=== PATIENT | female | born 1965 | race Caucasian/White ===

== ENCOUNTER 2016-05-16 09:24 | Outpatient (RCR) | payer BC ==
[~2016-05-16 09:24] MED LIST: /CLOT10TR MT; /DULO30CA OR; /ONDA4TA OR; /SUCR1TA OR; ALLE25CA OR; ATIV0.5T OR; CALCCHW12 OR; COLA100C2 OR; CYAN1000VL IM; CYCL10TA PO; DICY20TA PO; DULCOLAX OR; DULO1CAP3 PO; FERR325T PO; FISH1000 OR; FLUC10TA OR; FOLI1TAB2 PO; GAS-80CH OR; HYDR-3713 PO; IBUP400T OR; METRONIDAZOLE TOP; MIRALEX OR; MORP20SO OR; MORP30TA4 OR; MORP60TA OR; MULTIVIT OR; OMEP20TA7 OR; OXYB10TA PO; PERC5TAB8 OR; PERC7.5T8 OR; PHEN 25 PO; PHEN1SUP6 PR; POLYOPD OU; PRED10TA2 OR; PRED20TA OR; PRED50TA OR; PRED5TAB OR; PREMARIN PV; PROTPAK PO; Pentasa; REMICADE; ROPI1TAB PO; SENO8.6T5 OR; SIME125C OR; SING10TA32 PO; SUCR1SS PO; SULF500T2 PO; VIT D 2000; VITA100066 PO; VITA500C OR; VITAMIN B12 IM; VITMTA PO; ZOFR4TAB3 PO; ZOFR8TAB OR; [UNRECOGNIZED DRUG - CODE] IV; [UNRECOGNIZED DRUG - CODE] TD; [UNRECOGNIZED DRUG - OTHER] OR; [UNRECOGNIZED DRUG - OTHER] PO; azathioprine PO; cyanocobalamin INJ; hyomax SL; levsin PO; pentasa PO
== END 2016-05-23 ==
LOC: M OT 09:24
PROVIDERS: ATTEND Orthopaedic Surgery
DX: Z51.89 Encounter for other specified aftercare (principal); M65.331 Trigger finger, right middle finger; M70.62 Trochanteric bursitis, left hip

== ENCOUNTER 2016-06-15 08:45 | Outpatient (RCR) | payer BC | END 2016-06-23 | LOC: M OT 08:45 | PROVIDERS: ATTEND Orthopaedic Surgery | DX: Z51.89 Encounter for other specified aftercare (principal); M65.331 Trigger finger, right middle finger ==

== ENCOUNTER → 2016-07-11 | Outpatient (CLI) | payer BC ==
[2016-07-11 19:48] LABS: ALBUMIN 3.5 GM/DL (3.2-5.2); CALCIUM LEVEL 8.7 MG/DL (8.5-10.1)
== END ==
LOC: M LAB 18:44
PROVIDERS: ATTEND Internal Medicine Rheumatology
DX: Z79.899 Other long term (current) drug therapy (principal)

== ENCOUNTER 2016-09-06 14:48 | Emergency (ER) | payer BC ==
[~2016-09-06] VITALS: Ht 160 cm; Wt 79.2 kg
[2016-09-06] MEDS ORDERED: NS 1,000 ML IV SCH (16:16)
[2016-09-06] MEDS ORDERED: PANTOPRAZOLE 40MG INJ (PROTONIX) (C9113) IV ONE (16:30)
[2016-09-06] MEDS ORDERED: ONDANSETRON 4MG/2ML VIAL (J2405) IV ONE ×2 (16:30→19:45)
[2016-09-06] MEDS ORDERED: GASTROGRAFIN SOLUTION 30ML (Q9963) PO ONE ×2 (16:45)
[2016-09-06] MEDS: MORPHINE 4 MG/ML 1ML SYRINGE IV PRN ×2 (16:48→19:10)
[2016-09-06 16:58] LABS: BASO # 0.1 K/mm3 (0.0-0.2); BASO % 0.8 % (0.0-1.0); EOS # 0.2 K/mm3 (0.0-0.50); EOS % 2.9 % (0.0-3.0); LARGE UNSTAINED CELL # 0.2 K/mm3 (0.0-0.4); LARGE UNSTAINED CELL % 2.6 % (0.0-4.0); LYMPH # 1.5 K/mm3 (1.5-4.5); LYMPH % 17.6 % (24.0-44.0); MEAN CORPUSCULAR HEMOGLOBIN 29.2 pg (27.0-33.0); MEAN CORPUSCULAR HGB CONC 33.3 g/dl (32.0-36.5); MEAN CORPUSCULAR VOLUME 87.6 fl (80.0-96.0); MONO # 0.5 K/mm3 (0.0-0.8); MONO % 7.2 % (0.0-5.0); NEUTROPHILS % 68.9 % (36.0-66.0); PLATELET COUNT, AUTOMATED 319 k/mm3 (150-450); RED CELL DISTRIBUTION WIDTH 14.2 % (11.5-14.5); WHITE BLOOD COUNT 7.2 K/mm3 (4.0-10.0)
[2016-09-06 17:20] LABS: ALBUMIN 3.4 GM/DL (3.2-5.2); ALBUMIN/GLOBULIN RATIO 0.79 (1.00-1.93); ALKALINE PHOSPHATASE 94 U/L (45-117); ALT/SGPT 98 U/L (12-78); AMYLASE 51 U/L (25-115); ANION GAP 7 MEQ/L (8-16); AST/SGOT 22 U/L (15-37); BILIRUBIN,DIRECT < 0.1 MG/DL (0.0-0.2); BILIRUBIN,TOTAL 0.4 MG/DL (0.2-1.0); BLOOD UREA NITROGEN 7 MG/DL (7-18); CALCIUM LEVEL 8.5 MG/DL (8.5-10.1); CARBON DIOXIDE LEVEL 25 MEQ/L (21-32); CHLORIDE LEVEL 106 MEQ/L (98-107); CREATININE FOR GFR 0.69 MG/DL (0.55-1.02); GLOMERULAR FILTRATION RATE > 60.0 (>51); GLUCOSE, FASTING 97 MG/DL (70-105); POTASSIUM SERUM 3.1 MEQ/L (3.5-5.1); SODIUM LEVEL 138 MEQ/L (136-145); TOTAL PROTEIN 7.7 GM/DL (6.4-8.2)
[2016-09-06] MEDS ORDERED: ISOVUE-370 76% 100ML VIAL (Q9967) As Ordered ONE (18:05)
--- NOTE | 2016-09-06 19:30 | REPUSA ---
CLINICAL HISTORY: Recent hernia repair and fundoplication with pain. Patient states right-sided pain . TECHNIQUE: Multiple axial CT images were obtained through the abdomen and pelvis after administratio n of oral and intravenous contrast material. FINDINGS: There are postsurgical changes present in the anterior and right lateral abdominal wall compatible wi th recent surgery. A 15 mm cyst present in the left hepatic lobe. There are several additional smaller hepatic cysts. Th e liver is otherwise unremarkable. There is no intra or extrahepatic biliary ductal dilatation. Th e spleen is normal. Status post cholecystectomy. The pancreas is of normal contour and attenuation ch aracteristics. There is no evidence of adrenal mass. Both kidneys demonstrate prompt and equal nephrograms. The kidneys are normal in size, shape and con figuration. There is no evidence of renal or ureteral mass. No renal or ureteral calculi are identi fied. There is no hydroureter or hydronephrosis. No evidence for appendicitis. There is evidence of circumferential wall thickening involving the righ t colon as well as transverse colon compatible with colitis. No evidence for small or large bowel o bstruction. There is mild pelvic ascites noted. There is no evidence of intrinsic or extrinsic bladder mass. There is no pelvic ascites or lymphaden opathy. Uterus and ovaries are unremarkable. Scarring is seen in the right lower lobe lingula. There is small left pleural effusion noted. Images of the lung bases show no evidence of pleural or parenchymal mass. The bony structures are free of l ytic or blastic lesions. There is a moderate-sized hiatal hernia present. There is thickening of the distal esophagus and GE j unction wall. Consider followup with upper endoscopy. IMPRESSION: 1. Evidence of right colitis. Likely of infectious etiology. Clinical correlation is recommended. 2. Postsurgical changes. Air in the abdominal wall likely related to recent surgery. 3. There is thickening of the distal esophagus and GE junction wall. Consider followup with upper end oscopy. 4. Small amount of fluid within the pelvis. Thank you for your kind referral of this patient. We appreciate the opportunity to participate in thi s patient's care.
[2016-09-06] MEDS ORDERED: PERCOCET 5MG/325MG TAB PO ONE ×2 (20:30→22:15)
[2016-09-06] MEDS ORDERED: PERC5TAB6 PO (22:01)
[2016-09-06 22:05] VITALS: BP 110/65
--- NOTE | 2016-09-07 08:47 | ED PDOC ---
Post-Departure Follow-Up radiology report faxed to Easton Dunham Sarah MD Sep 07, 2016 08:47
== END 2016-09-06 22:30 | disposition home or self-care (01) ==
LOC: M ED 15:50
DX: G89.18 Other acute postprocedural pain (principal); K52.9 Noninfective gastroenteritis and colitis, unspecified; K76.89 Other specified diseases of liver; K90.0 Celiac disease; K50.90 Crohn's disease, unspecified, without complications; J45.909 Unspecified asthma, uncomplicated; Z79.899 Other long term (current) drug therapy; Z88.0 Allergy status to penicillin; Z88.1 Allergy status to other antibiotic agents; Z88.5 Allergy status to narcotic agent; Z91.011 Allergy to milk products; Z91.018 Allergy to other foods
CPT/HCPCS: 74177; 80048; 80076; 82150; 83690; 85025; 96361; 96374; 96375; 96376; 99282; C9113; J2405; Q9963; Q9967

== ENCOUNTER 2016-09-09 14:54 | Emergency (ER) | payer BC ==
[~2016-09-09] VITALS: Ht 160 cm; Wt 79.5 kg
[2016-09-09 14:54] VITALS: BP 121/79
[~2016-09-09 14:54] MED LIST changes: +PERC5TAB6 PO
[2016-09-09] MEDS ORDERED: traMADol 50 MG TAB PO ONE (16:15)
[2016-09-09] MEDS ORDERED: traMADol 50 MG TAB As Ordered ONE (16:18)
[2016-09-09] MEDS ORDERED: ULTR50TA PO (16:19)
== END 2016-09-09 16:31 | disposition home or self-care (01) ==
LOC: M ED 15:47
DX: R22.0 Localized swelling, mass and lump, head (principal); T78.40XA Allergy, unspecified, initial encounter; G89.18 Other acute postprocedural pain; J45.909 Unspecified asthma, uncomplicated; G47.30 Sleep apnea, unspecified; K50.90 Crohn's disease, unspecified, without complications; K90.0 Celiac disease; F33.9 Major depressive disorder, recurrent, unspecified; Z79.899 Other long term (current) drug therapy; Z88.0 Allergy status to penicillin; Z88.1 Allergy status to other antibiotic agents; Z88.5 Allergy status to narcotic agent; Z91.011 Allergy to milk products; Z91.018 Allergy to other foods

== ENCOUNTER 2016-09-27 03:59 | Emergency (ER) | payer BC ==
[~2016-09-27 03:59] MED LIST changes: +COMB1DIS TD; +FERR1TAB8 PO; -FERR325T PO; -FOLI1TAB2 PO; +FOLI1TAB4 PO; +PERC5TAB12 PO; -PERC5TAB6 PO; +ULTR50TA8 PO; -[UNRECOGNIZED DRUG - CODE] TD
[2016-09-27] MEDS ORDERED: NS 1,000 ML IV ONE (04:30)
[2016-09-27] MEDS ORDERED: ACETAMINOPHEN TAB 650MG DOSE (2X325MG) As Ordered ONE (04:32)
[2016-09-27] MEDS ORDERED: ACETAMINOPHEN TAB 650MG DOSE (2X325MG) PO ONE (04:45)
[2016-09-27 04:47] LABS: BASO # 0.1 K/mm3 (0.0-0.2); BASO % 0.7 % (0.0-1.0); EOS # 0.2 K/mm3 (0.0-0.50); EOS % 1.5 % (0.0-3.0); LARGE UNSTAINED CELL # 0.1 K/mm3 (0.0-0.4); LARGE UNSTAINED CELL % 0.9 % (0.0-4.0); LYMPH # 0.8 K/mm3 (1.5-4.5); LYMPH % 6.9 % (24.0-44.0); MEAN CORPUSCULAR HEMOGLOBIN 29.8 pg (27.0-33.0); MEAN CORPUSCULAR VOLUME 87.5 fl (80.0-96.0); MONO # 1.1 K/mm3 (0.0-0.8); MONO % 9.8 % (0.0-5.0); NEUTROPHILS # 9.1 K/mm3 (1.8-7.7); NEUTROPHILS % 80.2 % (36.0-66.0); PLATELET COUNT, AUTOMATED 261 k/mm3 (150-450); RED CELL DISTRIBUTION WIDTH 14.2 % (11.5-14.5); WHITE BLOOD COUNT 11.3 K/mm3 (4.0-10.0)
[2016-09-27] MEDS ORDERED: ONDANSETRON 4MG/2ML VIAL (J2405) As Ordered ONE (04:55)
[2016-09-27] MEDS ORDERED: HYDROmorphone HCL 1 MG/ML SYRINGE (J1170) As Ordered ONE (04:55)
[2016-09-27] MEDS ORDERED: ONDANSETRON 4MG/2ML VIAL (J2405) IV ONE (05:00)
[2016-09-27] MEDS ORDERED: IMIPENEM/CILASTATIN 500 MG in D5W MINI-BAG PLUS 100 ML IV ONE (05:00)
[2016-09-27] MEDS ORDERED: HYDROmorphone HCL 1 MG/ML SYRINGE (J1170) IV PRN (05:00)
[2016-09-27 05:10] LABS: ALBUMIN 3.5 GM/DL (3.2-5.2); ALBUMIN/GLOBULIN RATIO 0.85 (1.00-1.93); ALKALINE PHOSPHATASE 68 U/L (45-117); ALT/SGPT 43 U/L (12-78); ANION GAP 11 MEQ/L (8-16); AST/SGOT 30 U/L (15-37); BILIRUBIN,DIRECT < 0.1 MG/DL (0.0-0.2); BILIRUBIN,TOTAL 0.3 MG/DL (0.2-1.0); BLOOD UREA NITROGEN 21 MG/DL (7-18); CALCIUM LEVEL 9.2 MG/DL (8.5-10.1); CARBON DIOXIDE LEVEL 21 MEQ/L (21-32); CHLORIDE LEVEL 106 MEQ/L (98-107); CREATININE FOR GFR 0.93 MG/DL (0.55-1.02); GLOMERULAR FILTRATION RATE > 60.0 (>51); GLUCOSE, FASTING 199 MG/DL (70-105); POTASSIUM SERUM 4.2 MEQ/L (3.5-5.1); SODIUM LEVEL 138 MEQ/L (136-145); TOTAL PROTEIN 7.6 GM/DL (6.4-8.2)
[2016-09-27] MEDS ORDERED: ISOVUE-370 76% 100ML VIAL (Q9967) As Ordered ONE (05:33)
[2016-09-27 05:47] LABS: VENOUS BASE EXCESS -3.1 (-2.0-2.0); VENOUS O2 SATURATION 96.3 % (60.0-80.0); VENOUS PARTIAL PRESSURE CO2 33.3 mmHg (38.0-50.0); VENOUS PARTIAL PRESSURE O2 82.6 mmHg (30.0-50.0); VENOUS STANDARD HCO3 21.8 MEQ/L; VENOUS TOTAL CO2 21.7 MEQ/L (24.0-28.0)
--- NOTE | 2016-09-27 06:50 | REPUSA ---
CLINICAL HISTORY: Abdominal pain. TECHNIQUE: Multiple axial, sagittal and coronal CT images were obtained through the abdomen and pelvi s after administration of oral and intravenous contrast material. COMMENTS: Comparison is made to prior exam performed on 09/06/2016. Resolution of the patient described right sided colitis. Interval appearance of diffuse thickening of the mid aspect of the sigmoid colon. Resolution of surgical pneumoperitoneum. Unchanged 1.5 cm cyst in the left hepatic lobe. Unchanged pneumobilia. Prior cholecystectomy. Decreased inflammatory soft tissue thickening surrounding the fundoplication surgery. Unchanged hepatomegaly with fatty infiltration. Unchanged mild extrahepatic biliary ductal dilatation. The spleen is normal. The pancreas is of normal contour and attenuation characteristics. There is no evidence of adrenal ma ss. Both kidneys demonstrate prompt and equal nephrograms. The kidneys are normal in size, shape and conf iguration. There is no evidence of renal or ureteral mass. No renal or ureteral calculi are identifie d. There is no hydroureter or hydronephrosis. No evidence for small or large bowel obstruction. There is no evidence of abdominal ascites or lympha denopathy. There is no evidence of intrinsic or extrinsic bladder mass. There is no pelvic ascites or lymphadeno kristen. Images of the lung bases show no evidence of pleural or parenchymal mass. There are no pleural effusi ons. The bony structures are free of lytic or blastic lesions. IMPRESSION: Interval appearance of mid sigmoid colitis. No perforation or abscess formation. Resolution of surgical pneumoperitoneum. Resolution of right sided ascending colitis. Thank you for your kind referral of this patient.
--- NOTE | 2016-09-27 06:50 | REPUSA ---
CLINICAL HISTORY: Recent esophageal surgery. TECHNIQUE: Multiple axial CT images were obtained through the thorax with IV contrast material. COMMENTS: No pulmonary embolus or aortic dissection is seen. There is no evidence of pleural or parenchymal mass. There are no pleural effusions. There is no evid ence of hilar or mediastinal lymphadenopathy. The heart and great vessels are within normal limits. Again is noted scarring in the lingula and the right lower lobe. The bony structures are free of lytic or blastic lesions. Post contrast images demonstrate no evidence for abnormal enhancement. Changes from the recent fundoplication. IMPRESSION: No evidence of acute thoracic pathology. Recent fundoplication. Thank you for your kind referral of this patient.
[2016-09-27 09:02] VITALS: BP 95/62
== END 2016-09-27 09:32 | disposition short-term general hospital (02) ==
LOC: EEVIPCON 03:59 → M ED 03:59
DX: K52.9 Noninfective gastroenteritis and colitis, unspecified (principal); K50.90 Crohn's disease, unspecified, without complications; Z79.899 Other long term (current) drug therapy; Z88.0 Allergy status to penicillin; Z88.1 Allergy status to other antibiotic agents; Z88.5 Allergy status to narcotic agent; Z91.011 Allergy to milk products; Z91.018 Allergy to other foods
CPT/HCPCS: 36415; 71260; 74177; 80048; 80076; 82803; 83605; 83690; 85025; 87040; 87077; 87186; 93041; 96365; 96375; 99285; J1170; J2405; Q9967

== ENCOUNTER → 2016-10-10 | Outpatient (REF) | payer BC ==
[~2016-10-10] MED LIST changes: +ARTI99.0 OU; +BREO1INH3 INH; +CIPR-249 PO; +CIPR500T3 PO; +COUM1TAB19 PO; +FAMO1TAB11 PO; +FLAG500T PO; +INCR1INH INH; +LEVS0.124 SL; +LOVE0.6I2 SC; +METR1TAB66 PO; +POTA20TA PO; +POTA20TA4 PO; +PRED10TA2 PO; +PRED5TA PO; +ROPI0.5T PO; +VANC1VLAD INJ; +ZOFR20TA PO
[2016-10-10 18:57] LABS: ALBUMIN 3.4 GM/DL (3.2-5.2); ALKALINE PHOSPHATASE 50 U/L (45-117); ALT/SGPT 36 U/L (12-78); ANION GAP 10 MEQ/L (8-16); AST/SGOT 14 U/L (15-37); BILIRUBIN,TOTAL 0.3 MG/DL (0.2-1.0); BLOOD UREA NITROGEN 9 MG/DL (7-18); CALCIUM LEVEL 8.5 MG/DL (8.5-10.1); CARBON DIOXIDE LEVEL 25 MEQ/L (21-32); CHLORIDE LEVEL 107 MEQ/L (98-107); GLOMERULAR FILTRATION RATE > 60.0 (>51); GLUCOSE, FASTING 78 MG/DL (70-105); POTASSIUM SERUM 4.5 MEQ/L (3.5-5.1); SODIUM LEVEL 142 MEQ/L (136-145); TOTAL PROTEIN 6.8 GM/DL (6.4-8.2)
[2016-10-10 19:02] LABS: BASO % 0.2 % (0.0-1.0); EOS # 0.2 K/mm3 (0.0-0.50); EOS % 2.5 % (0.0-3.0); LARGE UNSTAINED CELL # 0.1 K/mm3 (0.0-0.4); LARGE UNSTAINED CELL % 1.1 % (0.0-4.0); LYMPH # 1.4 K/mm3 (1.5-4.5); LYMPH % 21.2 % (24.0-44.0); MEAN CORPUSCULAR HEMOGLOBIN 28.7 pg (27.0-33.0); MEAN CORPUSCULAR HGB CONC 32.4 g/dl (32.0-36.5); MEAN CORPUSCULAR VOLUME 88.5 fl (80.0-96.0); MONO # 0.4 K/mm3 (0.0-0.8); MONO % 6.4 % (0.0-5.0); NEUTROPHILS # 4.3 K/mm3 (1.8-7.7); NEUTROPHILS % 68.5 % (36.0-66.0); PLATELET COUNT, AUTOMATED 323 k/mm3 (150-450); RED CELL DISTRIBUTION WIDTH 14.8 % (11.5-14.5); WHITE BLOOD COUNT 6.2 K/mm3 (4.0-10.0)
[2016-10-10 20:01] LABS: ERYTHROCYTE SEDIMENTATION RATE 25 mm/hr (0-30)
== END ==
LOC: M LAB REF 17:24
PROVIDERS: ATTEND Nurse Practitioner Adult Health
DX: R78.81 Bacteremia (principal)

== ENCOUNTER → 2016-10-17 | Outpatient (REF) | payer BC ==
[2016-10-17 13:11] LABS: INR 1.07
== END ==
LOC: M LAB REF 12:32
PROVIDERS: ATTEND Family Medicine
DX: I82.622 Acute embolism and thrombosis of deep veins of left upper extremity (principal)

== ENCOUNTER → 2016-10-17 | Outpatient (REF) | payer BC ==
[2016-10-17 13:03] LABS: ALKALINE PHOSPHATASE 59 U/L (45-117); ALT/SGPT 28 U/L (12-78); BILIRUBIN,TOTAL 0.3 MG/DL (0.2-1.0); BLOOD UREA NITROGEN 10 MG/DL (7-18); CALCIUM LEVEL 8.8 MG/DL (8.5-10.1); CARBON DIOXIDE LEVEL 27 MEQ/L (21-32); CHLORIDE LEVEL 108 MEQ/L (98-107); CREATININE FOR GFR 0.74 MG/DL (0.55-1.02); GLUCOSE, FASTING 107 MG/DL (70-105); POTASSIUM SERUM 3.4 MEQ/L (3.5-5.1); TOTAL PROTEIN 6.8 GM/DL (6.4-8.2)
[2016-10-17 13:07] LABS: BASO % 0.2 % (0.0-1.0); EOS # 0.2 K/mm3 (0.0-0.50); LARGE UNSTAINED CELL # 0.1 K/mm3 (0.0-0.4); LARGE UNSTAINED CELL % 2.2 % (0.0-4.0); LYMPH # 1.2 K/mm3 (1.5-4.5); LYMPH % 29.8 % (24.0-44.0); MEAN CORPUSCULAR HEMOGLOBIN 29.3 pg (27.0-33.0); MEAN CORPUSCULAR HGB CONC 33.2 g/dl (32.0-36.5); MEAN CORPUSCULAR VOLUME 88.4 fl (80.0-96.0); MONO # 0.4 K/mm3 (0.0-0.8); MONO % 11.6 % (0.0-5.0); NEUTROPHILS # 1.9 K/mm3 (1.8-7.7); NEUTROPHILS % 50.3 % (36.0-66.0); PLATELET COUNT, AUTOMATED 247 k/mm3 (150-450); WHITE BLOOD COUNT 3.8 K/mm3 (4.0-10.0)
[2016-10-17 13:16] LABS: AST/SGOT 16 U/L (15-37)
[2016-10-17 13:48] LABS: ERYTHROCYTE SEDIMENTATION RATE 37 mm/hr (0-30)
[2016-10-17 15:47] LABS: ANION GAP 8 MEQ/L (8-16); SODIUM LEVEL 143 MEQ/L (136-145)
[2016-10-17 15:48] LABS: ALBUMIN 3.3 GM/DL (3.2-5.2); ALBUMIN/GLOBULIN RATIO 0.94 (1.00-1.93)
== END ==
LOC: M LAB REF 12:33
PROVIDERS: ATTEND Internal Medicine Infectious Disease
DX: R78.81 Bacteremia (principal); I80.9 Phlebitis and thrombophlebitis of unspecified site; Z79.2 Long term (current) use of antibiotics

== ENCOUNTER 2016-10-19 09:35 | Emergency (ER) | payer BC ==
[~2016-10-19] VITALS: Ht 162.6 cm; Wt 71.8 kg
[~2016-10-19 09:35] MED LIST changes: -ARTI99.0 OU; -BREO1INH3 INH; -CIPR-249 PO; -CIPR500T3 PO; -COUM1TAB19 PO; -FAMO1TAB11 PO; -FLAG500T PO; -INCR1INH INH; -LEVS0.124 SL; -LOVE0.6I2 SC; -METR1TAB66 PO; -POTA20TA PO; -POTA20TA4 PO; -PRED10TA2 PO; -PRED5TA PO; -ROPI0.5T PO; -VANC1VLAD INJ; -ZOFR20TA PO
[2016-10-19] MEDS ORDERED: LEVS0.124 SL (09:57)
[2016-10-19] MEDS ORDERED: COUM1TAB19 PO (09:57)
[2016-10-19] MEDS ORDERED: INCR1INH INH (09:57)
[2016-10-19] MEDS ORDERED: VANC1VLAD INJ (09:57)
[2016-10-19] MEDS ORDERED: PRED10TA2 PO (09:57)
[2016-10-19] MEDS ORDERED: LOVE0.6I2 SC (09:57)
[2016-10-19] MEDS ORDERED: MORPHINE 4 MG/ML 1ML SYRINGE IV ONE ×2 (10:30→12:00)
[2016-10-19] MEDS ORDERED: ONDANSETRON 4MG/2ML VIAL (J2405) IV ONE (10:30)
[2016-10-19] MEDS ORDERED: VANCOMYCIN HCL 1,000 MG, VIAL MATE ADAPTER 1 EACH in D5W 250 ML IV ONE (10:30)
[2016-10-19] MEDS ORDERED: VANCOMYCIN HCL 500 MG in D5W MINI-BAG PLUS 100 ML IV ONE (10:30)
[2016-10-19] MEDS ORDERED: GASTROGRAFIN SOLUTION 30ML PO ONE (10:45)
[2016-10-19] MEDS ORDERED: GASTROGRAFIN SOLUTION 30ML (Q9963) PO ONE (11:00)
[2016-10-19] MEDS ORDERED: GASTROGRAFIN SOLUTION 30ML (Q9963) As Ordered ONE (11:15)
[2016-10-19 11:27] LABS: INR 1.23
--- NOTE | 2016-10-19 11:28 | ECGEPIP ---
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
[2016-10-19 11:37] LABS: BASO % 0.9 % (0.0-1.0); EOS # 0.3 K/mm3 (0.0-0.50); EOS % 4.8 % (0.0-3.0); LARGE UNSTAINED CELL # 0.2 K/mm3 (0.0-0.4); LARGE UNSTAINED CELL % 2.7 % (0.0-4.0); LYMPH % 17.7 % (24.0-44.0); MEAN CORPUSCULAR HEMOGLOBIN 28.7 pg (27.0-33.0); MEAN CORPUSCULAR HGB CONC 33.5 g/dl (32.0-36.5); MEAN CORPUSCULAR VOLUME 85.6 fl (80.0-96.0); MONO # 0.4 K/mm3 (0.0-0.8); MONO % 6.8 % (0.0-5.0); NEUTROPHILS # 3.8 K/mm3 (1.8-7.7); NEUTROPHILS % 67.1 % (36.0-66.0); PLATELET COUNT, AUTOMATED 219 k/mm3 (150-450); RED CELL DISTRIBUTION WIDTH 14.8 % (11.5-14.5); WHITE BLOOD COUNT 5.6 K/mm3 (4.0-10.0)
[2016-10-19] MEDS ORDERED: ISOVUE-370 76% 100ML VIAL (Q9967) As Ordered ONE (12:27)
[2016-10-19] MEDS ORDERED: METOCLOPRAMIDE INJ 10MG/2ML VIAL (J2765) IV ONE (13:15)
[2016-10-19] MEDS ORDERED: HYDROmorphone HCL 1 MG/ML SYRINGE (J1170) IV PRN (13:15)
--- NOTE | 2016-10-19 13:20 | REP ---
CT abdomen pelvis with IV and oral contrast: Comparison 09/27/2016. The visualized lung stewart are unremarkable. There is focal soft tissue edema and wall thickening at the gastroesophageal junction, similar to the comparison CT in this patient who is reportedly recently had a fundoplication procedure. No focal fluid collection that would suggest abscess is identified. There is a focal low density lesion superiorly in the medial segment of the hepatic left lobe, unchanged from a prior study of 2012, likely an hepatic cyst. The hepatic parenchyma is otherwise homogeneous and unremarkable. There are surgical clips in the gallbladder fossa. Pancreas and spleen are unremarkable. The adrenals and kidneys are unremarkable. The abdominal aorta is unremarkable. There is no bowel distension or obstruction. There is descending colon and sigmoid colon diverticulosis without diverticulitis. There is mild wall thickening of the descending colon and sigmoid colon. This is nonspecific and could be artifact from under distension, however, in the appropriate clinical setting this could represent colitis. There is no ascites. There is no retroperitoneal or pelvic adenopathy. Pelvis: The bladder is unremarkable. There is a focal sharply circumscribed hypodensity in the uterine fundus on the left, possibly a fibroid. The uterus is otherwise unremarkable. The adnexa are unremarkable. The appendix is not identified, however there is no pericecal inflammation or abscess. Impression: Wall thickening and edema in the soft tissues at the gastroesophageal junction, similar to the comparison study this patient with history of recent fundoplication. No focal fluid collection is identified to suggest abscess. Descending colon and sigmoid colon diverticulosis without diverticulitis. There is additionally descending colon and sigmoid colon wall thickening compatible with colitis in the appropriate clinical setting. No ascites or adenopathy. There is a cholecystectomy. No bowel distension or obstruction. Probable uterine fibroid. Signed by Heriberto Omalley MD 10/19/2016 01:11 P
[2016-10-19 13:27] LABS: BLOOD UREA NITROGEN 12 MG/DL (7-18); GLUCOSE, FASTING 94 MG/DL (70-105)
[2016-10-19 13:28] LABS: ALT/SGPT 31 U/L (12-78); ANION GAP 8 MEQ/L (8-16); AST/SGOT 15 U/L (15-37); CALCIUM LEVEL 8.8 MG/DL (8.5-10.1); CARBON DIOXIDE LEVEL 25 MEQ/L (21-32); CHLORIDE LEVEL 110 MEQ/L (98-107); GLOMERULAR FILTRATION RATE > 60.0 (>51); SODIUM LEVEL 143 MEQ/L (136-145)
[2016-10-19 13:29] LABS: ALBUMIN 3.4 GM/DL (3.2-5.2); ALBUMIN/GLOBULIN RATIO 0.76 (1.00-1.93); ALKALINE PHOSPHATASE 69 U/L (45-117); BILIRUBIN,DIRECT 0.1 MG/DL (0.0-0.2); BILIRUBIN,TOTAL 0.5 MG/DL (0.2-1.0); TOTAL PROTEIN 7.9 GM/DL (6.4-8.2)
[2016-10-19] MEDS ORDERED: CIPR-249 PO (15:09)
[2016-10-19] MEDS ORDERED: POTA20TA4 PO (15:09)
[2016-10-19] MEDS ORDERED: FLAG500T PO (15:09)
[2016-10-19] MEDS ORDERED: POTASSIUM CHLORIDE 10 MEQ SR TABLET PO ONE (15:15)
[2016-10-19 15:39] VITALS: BP 118/62
[2016-10-20] MEDS ORDERED: ARTI99.0 OU (19:03)
[2016-10-20] MEDS ORDERED: POTA20TA PO (19:03)
[2016-10-20] MEDS ORDERED: METR1TAB66 PO (19:03)
[2016-10-20] MEDS ORDERED: HYDR-3713 PO (19:03)
[2016-10-20] MEDS ORDERED: ROPI0.5T PO (19:03)
[2016-10-20] MEDS ORDERED: ZOFR20TA PO (19:03)
[2016-10-20] MEDS ORDERED: FAMO1TAB11 PO (19:03)
[2016-10-20] MEDS ORDERED: CIPR500T3 PO (19:03)
[2016-10-20] MEDS ORDERED: PRED5TA PO (19:03)
[2016-10-20] MEDS ORDERED: BREO1INH3 INH (19:03)
== END 2016-10-19 15:42 | disposition home or self-care (01) ==
LOC: M ED 09:35
DX: K52.9 Noninfective gastroenteritis and colitis, unspecified (principal); E87.6 Hypokalemia
CPT/HCPCS: 36415; 74177; 80048; 80076; 82550; 82553; 83605; 83690; 85025; 85610; 86850; 86900; 86901; 87040; 87507; 93005; 93041; 96365; 96366; 96375; 96376; 99284; J1170; J2405; J2765; J3370; Q9963; Q9967

== ENCOUNTER 2016-10-20 16:30 | Observation (INO) | payer BC ==
[~2016-10-20] VITALS: Ht 162.6 cm; Wt 71.9 kg
[~2016-10-20 16:30] MED LIST changes: -ARTI99.0 OU; -BREO1INH3 INH; -CIPR500T3 PO; -FAMO1TAB11 PO; -METR1TAB66 PO; -POTA20TA PO; -PRED5TA PO; -ROPI0.5T PO; -ZOFR20TA PO
[2016-10-20] MEDS ORDERED: ONDANSETRON 4MG/2ML VIAL (J2405) IV ONE (16:45)
[2016-10-20] MEDS ORDERED: NS 1,000 ML IV SCH ×2 (16:45→20:00)
[2016-10-20] MEDS: MORPHINE 4 MG/ML 1ML SYRINGE IV PRN ×2 (17:00→17:29)
[2016-10-20 17:14] LABS: BASO % 0.2 % (0.0-1.0); EOS # 0.2 K/mm3 (0.0-0.50); EOS % 4.8 % (0.0-3.0); LARGE UNSTAINED CELL # 0.1 K/mm3 (0.0-0.4); LARGE UNSTAINED CELL % 2.2 % (0.0-4.0); LYMPH # 0.7 K/mm3 (1.5-4.5); LYMPH % 15.3 % (24.0-44.0); MEAN CORPUSCULAR HEMOGLOBIN 29.4 pg (27.0-33.0); MEAN CORPUSCULAR HGB CONC 33.9 g/dl (32.0-36.5); MEAN CORPUSCULAR VOLUME 86.6 fl (80.0-96.0); MONO # 0.4 K/mm3 (0.0-0.8); MONO % 9.2 % (0.0-5.0); NEUTROPHILS # 3.1 K/mm3 (1.8-7.7); NEUTROPHILS % 68.3 % (36.0-66.0); PLATELET COUNT, AUTOMATED 173 k/mm3 (150-450); RED CELL DISTRIBUTION WIDTH 14.7 % (11.5-14.5); WHITE BLOOD COUNT 4.5 K/mm3 (4.0-10.0)
[2016-10-20 17:41] LABS: ALBUMIN 3.3 GM/DL (3.2-5.2); ALBUMIN/GLOBULIN RATIO 0.85 (1.00-1.93); ALKALINE PHOSPHATASE 61 U/L (45-117); ALT/SGPT 33 U/L (12-78); ANION GAP 10 MEQ/L (8-16); AST/SGOT 21 U/L (15-37); BILIRUBIN,DIRECT < 0.1 MG/DL (0.0-0.2); BILIRUBIN,TOTAL 0.3 MG/DL (0.2-1.0); BLOOD UREA NITROGEN 9 MG/DL (7-18); CALCIUM LEVEL 8.5 MG/DL (8.5-10.1); CARBON DIOXIDE LEVEL 22 MEQ/L (21-32); CHLORIDE LEVEL 109 MEQ/L (98-107); GLOMERULAR FILTRATION RATE > 60.0 (>51); GLUCOSE, FASTING 101 MG/DL (70-105); POTASSIUM SERUM 3.4 MEQ/L (3.5-5.1); SODIUM LEVEL 141 MEQ/L (136-145); TOTAL PROTEIN 7.2 GM/DL (6.4-8.2)
[2016-10-20] MEDS ORDERED: FAMO1TAB11 PO (19:03)
[2016-10-20] MEDS ORDERED: HYDR-3713 PO (19:03)
[2016-10-20] MEDS ORDERED: ARTI99.0 OU (19:03)
[2016-10-20] MEDS ORDERED: METR1TAB66 PO (19:03)
[2016-10-20] MEDS ORDERED: PRED5TA PO (19:03)
[2016-10-20] MEDS ORDERED: POTA20TA PO (19:03)
[2016-10-20] MEDS ORDERED: CIPR500T3 PO (19:03)
[2016-10-20] MEDS ORDERED: ZOFR20TA PO (19:03)
[2016-10-20] MEDS ORDERED: BREO1INH3 INH (19:03)
[2016-10-20] MEDS ORDERED: ROPI0.5T PO (19:03)
[2016-10-20] MEDS ORDERED: POTASSIUM CHLORIDE 10 MEQ SR TABLET PO ONE (19:15)
[2016-10-20] MEDS ORDERED: rOPINIRole 1MG TAB PO PRN (19:15)
[2016-10-20] MEDS ORDERED: HYOSCYAMINE SULFATE 0.125 MG SUBL TABLET SL PRN (19:15)
[2016-10-20] MEDS ORDERED: POLYVINYL ALCOHOL OPHTH SOLN 15 ML(LIQUITEARS) OU PRN (19:15)
--- NOTE | 2016-10-20 19:21 | HPEPDOC ---
Medical History and Physical Date of Admission Oct 20, 2016 at 19:07 History and Physical PRIMARY CARE PROVIDER: Easton Dunham ATTENDING: Nancy Jesus MD CHIEF COMPLAINT: Abdominal pain HISTORY OF PRESENT ILLNESS: This is a 50-year-old female past medical history of Crohn's disease, celiac disease, asthma, rheumatoid arthritis, GERD, history of esophageal stricture status post dilation, pancreatitis, hiatal hernia status post recent fundoplication in August who presents complaining of abdominal pain. Patient states she was recently hospitalized for her fundoplication, had a PICC line placed, with complications of a left upper extremity DVT for which she is on a Lovenox/Coumadin bridge. The patient also had developed bacteremia, for which she is on vancomycin IV twice a day through a PICC line on the right upper extremity. Patient states she is supposed to continue these antibiotics until she follows up on October 31. Patient states since August she's had varying episodes of diarrhea, however started to develop crampy 8 out of 10 abdominal pain with associated nausea and vomiting 2 days ago. Patient presented to the ED 2 days ago and was prescribed Cipro and Flagyl. Her GI panel at the time noted norovirus. Patient states she's unable to keep anything down, and has lower quadrant abdominal pain that's crampy in nature, nonradiating. States her diarrhea is improving and she had no episodes today. PAST MEDICAL HISTORY: As per HPI PAST SURGICAL HISTORY: Recent fundoplication in August, tonsillectomy, ganglion cyst, hernia repair, cholecystectomy, bladder suspension SOCIAL HISTORY: Denies tobacco, alcohol, illicit drug use. FAMILY HISTORY: Father with diabetes, sister with sarcoidosis ALLERGIES: Please see below. REVIEW OF SYSTEMS: HEENT: Denies sore throat/headache CARDIOVASCULAR: Denies chest pain/palpitations RESPIRATORY: Denies shortness of breath/cough GASTROINTESTINAL: + nausea/vomiting/diarrhea GENITOURINARY: Denies dysuria/urinary urgency. MUSCULOSKELETAL: Denies myalgias/arthralgias NEUROLOGICAL: Denies any focal weakness HOME MEDICATIONS: Please see below. PHYSICAL EXAMINATION: Vitals: (see below) General: No acute distress, laying comfortably in bed. HEENT: Moist mucous membranes. Neck: No JVD or lymphadenopathy Cardiac: RRR, No murmurs Pulm: Clear to auscultation b/l. No wheezing, rhonchi Abd: Mild TTP lower quadrants. No rebound/guarding/rigidity. ND + BS Ext: No edema or cyanosis. RUE PICC line. No bleeding noted. LABORATORY DATA: See below. IMAGING: CT abdomen/pelvis 10/20/16 Impression: Wall thickening and edema in the soft tissues at the gastroesophageal junction, similar to the comparison study this patient with history of recent fundoplication. No focal fluid collection is identified to suggest abscess. Descending colon and sigmoid colon diverticulosis without diverticulitis. There is additionally descending colon and sigmoid colon wall thickening compatible with colitis in the appropriate clinical setting. No ascites or adenopathy. There is a cholecystectomy. No bowel distension or obstruction. Probable uterine fibroid. MICROBIOLOGY: Please see below. ASSESSMENT/PLAN: 1. Colitis- patient was recently started on Cipro/Flagyl. Her GI panel at the time was noted to have norovirus. Given the patient does have Crohn's disease we will continue these antibiotics for now. IV fluids. Nothing by mouth for now. 2. History of Crohn's with multiple exacerbations- patient states that her maintenance medications for Crohn's disease have been held by her cattle dehorner Dr. Salamanca in [place] since her fundoplication September 01. 3. History of hiatal hernia status post fundoplication 4. Recent diagnosis of left upper extremity DVT status post PICC line now on Coumadin with Lovenox bridge 5. Recent bacteremia, on vancomycin IV; will need to obtain records from prior hospitalization 6. History of rheumatoid arthritis 7. History of asthma- stable 8. History of pancreatitis 9. History of celiac disease DVT prophylaxis- on Coumadin Patient is followed by Dr. Pennie Guzman starting 10/21/16 at 7 AM. Vital Signs Vital Signs Date Time Temp Pulse Resp B/P (MAP) Pulse Ox O2 Delivery O2 Flow Rate FiO2 10/20/16 19:07 92 16 117/69 (85) 95 10/20/16 16:34 99.6 Laboratory Data Labs 24H Laboratory Tests 2 10/20/16 17:03: White Blood Count 4.5, Red Blood Count 4.17, Hemoglobin 12.3, Hematocrit 36.1, Mean Corpuscular Volume 86.6, Mean Corpuscular Hemoglobin 29.4, Mean Corpuscular Hemoglobin Concent 33.9, Red Cell Distribution Width 14.7H, Platelet Count 173, Neutrophils (%) (Auto) 68.3H, Lymphocytes (%) (Auto) 15.3L, Monocytes (%) (Auto) 9.2H, Eosinophils (%) (Auto) 4.8H, Basophils (%) (Auto) 0.2 , Neutrophils # (Auto) 3.1, Lymphocytes # (Auto) 0.7L, Monocytes # (Auto) 0.4, Eosinophils # (Auto) 0.2, Basophils # (Auto) 0.0, Large Unclassified Cells % 2.2 , Large Unclassified Cells # 0.1, Anion Gap 10, Glomerular Filtration Rate > 60.0, Calcium Level 8.5, Aspartate Amino Transf (AST/SGOT) 21, Alanine Aminotransferase (ALT/SGPT) 33, Alkaline Phosphatase 61, Total Bilirubin 0.3, Direct Bilirubin < 0.1, Total Protein 7.2, Albumin 3.3, Albumin/Globulin Ratio 0.85L, Lipase 105 CBC/BMP Laboratory Tests 10/20/16 17:03 Red Blood Count 4.17, Mean Corpuscular Volume 86.6, Mean Corpuscular Hemoglobin 29.4, Mean Corpuscular Hemoglobin Concent 33.9, Red Cell Distribution Width 14.7 H, Neutrophils (%) (Auto) 68.3 H, Lymphocytes (%) (Auto) 15.3 L, Monocytes (%) (Auto) 9.2 H, Eosinophils (%) (Auto) 4.8 H, Basophils (%) (Auto) 0.2, Neutrophils # (Auto) 3.1, Lymphocytes # (Auto) 0.7 L, Monocytes # (Auto) 0.4, Eosinophils # (Auto) 0.2, Basophils # (Auto) 0.0 Home Medications Scheduled (Incruse Ellipta) 62.5 Mcg/Inh Inh, 62.5 MCG INH DAILY Ciprofloxacin HCl (Ciprofloxacin HCl) 500 Mg Tab, 500 MG PO BID FILLED 10/19/16 FOR 7 DAYS Duloxetine Hcl (Duloxetine HCl) 60 Mg Cap, 60 MG PO BID Enoxaparin (Lovenox) 80 Mg/0.8 Ml Syr, 80 MG SC BID Famotidine (Famotidine) 20 Mg Tab, 20 MG PO BID Fluticasone/Vilanterol (Breo Ellipta 200-25 Mcg/INH) 1 Inh Inh, 1 PUFF INH DAILY Metronidazole (Metronidazole) 500 Mg Tab, 500 MG PO Q8H STARTED 10/19/16 FOR 10 DAYS Montelukast Sodium (Singulair) 10 Mg Tab, 10 MG PO QHS Potassium Chloride (Klor-Con M20) 20 Meq Tabcr, 40 MEQ PO DAILY Prednisone (Prednisone) 5 Mg Tab, 5 MG PO TID FILLED 10/13/16 FOR 10 DAYS Vancomycin HCl (Vancomycin HCl) 1,000 Mg Soln, 1,500 MG INJ BID Warfarin Sod (Coumadin) 3 Mg Tab, 3 MG PO QPM Scheduled PRN Acetaminophen/Hydrocodone (Hydrocodone/Acetaminophen 5-325 mg) 1 Tab Tab, 1 TAB PO Q6H PRN for PAIN Artificial Tears (Artificial Tears) 1.4 % Mariah, 1 DROP OU QID PRN for DRY EYES Dicyclomine HCl (Dicyclomine HCl) 20 Mg Tab, 20 MG PO TID PRN for BOWEL SPASMS / CRAMPS Hyoscyamine Sulfate (Levsin/Sl) 0.125 Mg Sub, 0.125 MG SL Q4H PRN for CRAMPS Ondansetron HCl (Zofran) 4 Mg Tab, 4 MG PO Q8H PRN for NAUSEA OR VOMITING Ropinirole Hydrochloride (Ropinirole HCl) 0.5 Mg Tab, 1.5 MG PO QHS PRN for RLS Allergies Coded Allergies: Gluten Meal (Unverified Allergy, Intermediate, bloating/diarrhea, 06/27/12) Milk-related Compounds (Unverified Allergy, Intermediate, bloating/ diarrhea, 06/27/12) Codeine (Verified Allergy, Unknown, 06/27/12) Erythromycin (Verified Allergy, Unknown, 06/27/12) Penicillins (Verified Allergy, Unknown, 06/27/12) Sulfa Antibiotics (Verified Allergy, Unknown, 10/19/16) NANCY JESUS MD Oct 20, 2016 19:21
[2016-10-20 19:59] LABS: INR 1.68
[2016-10-20] MEDS: FAMOTIDINE 20 MG TAB PO SCH (20:38)
[2016-10-20] MEDS: CIPROFLOXACIN 500 MG TAB PO SCH (20:39)
[2016-10-20] MEDS: predniSONE 5 MG TAB PO SCH (20:39)
[2016-10-20] MEDS: DULoxetine 30 MG CAP (CYMBALTA) PO SCH (20:39)
[2016-10-20] MEDS: NORCO, ANEXSIA 5/325MG TABLET (HYDROcodone/ACETAMINOPHEN) PO PRN (20:39)
[2016-10-20] MEDS: MONTELUKAST 10 MG TAB PO SCH (20:39)
[2016-10-20] MEDS: WARFARIN SOD 5 MG TAB PO SCH (20:40)
[2016-10-20] MEDS ORDERED: VANCOMYCIN 1000 MG/20 ML VIAL (J3370) IV SCH (21:00)
[2016-10-20] MEDS: PANTOPRAZOLE 40MG INJ (PROTONIX) (C9113) IV SCH (21:44)
[2016-10-20] MEDS: VANCOMYCIN HCL 1,000 MG, VIAL MATE ADAPTER 1 EACH in D5W 250 ML IV SCH (21:44)
[2016-10-20] MEDS: metroNIDAZOLE (FLAGYL) 500 MG TAB PO SCH (21:45)
[2016-10-20 22:00] VITALS: BP 119/72
[2016-10-20] MEDS ORDERED: MORPHINE 4 MG/ML 1ML SYRINGE IV PRN (22:15)
[2016-10-20] MEDS: ENOXAPARIN 80 MG/0.8 ML SYRINGE (J1650) SC SCH (22:23)
[2016-10-20] MEDS: MORPHINE 2 MG/ML 1ML SYRINGE IV PRN (23:05)
[2016-10-20] MEDS: VANCOMYCIN HCL 500 MG in D5W MINI-BAG PLUS 100 ML IV SCH (23:05)
[2016-10-20] MEDS: ONDANSETRON 4MG/2ML VIAL (J2405) IV PRN (23:06)
[2016-10-21] VITALS (7 sets, daily range): BP systolic 112–120; BP diastolic 56–75
[2016-10-21] MEDS: ONDANSETRON 4MG/2ML VIAL (J2405) IV PRN ×2 (05:24→18:12)
[2016-10-21] MEDS: MORPHINE 2 MG/ML 1ML SYRINGE IV PRN (05:24)
[2016-10-21] MEDS: CIPROFLOXACIN 500 MG TAB PO SCH ×2 (05:26→18:12)
[2016-10-21] MEDS: metroNIDAZOLE (FLAGYL) 500 MG TAB PO SCH ×3 (05:26→21:12)
[2016-10-21 05:27] LABS: MEAN CORPUSCULAR HEMOGLOBIN 29.2 pg (27.0-33.0); MEAN CORPUSCULAR HGB CONC 33.1 g/dl (32.0-36.5); MEAN CORPUSCULAR VOLUME 88.3 fl (80.0-96.0); RED CELL DISTRIBUTION WIDTH 14.8 % (11.5-14.5); WHITE BLOOD COUNT 3.2 K/mm3 (4.0-10.0)
[2016-10-21] MEDS: SODIUM CHLORIDE 0.9% INJ 10 ML SYR IV SCH ×2 (05:32→18:13)
[2016-10-21 05:51] LABS: ANION GAP 7 MEQ/L (8-16); BLOOD UREA NITROGEN 7 MG/DL (7-18); CALCIUM LEVEL 7.1 MG/DL (8.5-10.1); CARBON DIOXIDE LEVEL 26 MEQ/L (21-32); CHLORIDE LEVEL 110 MEQ/L (98-107); CREATININE FOR GFR 0.74 MG/DL (0.55-1.02); GLOMERULAR FILTRATION RATE > 60.0 (>51); GLUCOSE, FASTING 104 MG/DL (70-105); MAGNESIUM LEVEL 1.9 MG/DL (1.8-2.4); POTASSIUM SERUM 3.8 MEQ/L (3.5-5.1); SODIUM LEVEL 143 MEQ/L (136-145)
[2016-10-21] MEDS: NORCO, ANEXSIA 5/325MG TABLET (HYDROcodone/ACETAMINOPHEN) PO PRN ×2 (08:15→18:12)
[2016-10-21] MEDS: predniSONE 5 MG TAB PO SCH ×3 (08:15→21:12)
[2016-10-21] MEDS: FAMOTIDINE 20 MG TAB PO SCH ×2 (08:15→21:13)
[2016-10-21] MEDS: DULoxetine 30 MG CAP (CYMBALTA) PO SCH ×2 (08:15→21:13)
[2016-10-21] MEDS: SODIUM CHLORIDE 0.9% INJ 10 ML SYR IV PRN ×3 (09:18→23:12)
[2016-10-21 09:53] LABS: INR 2.21
[2016-10-21] MEDS: VANCOMYCIN HCL 500 MG in D5W MINI-BAG PLUS 100 ML IV SCH ×2 (10:27→23:12)
[2016-10-21] MEDS: ENOXAPARIN 80 MG/0.8 ML SYRINGE (J1650) SC SCH (10:28)
[2016-10-21] MEDS: VANCOMYCIN HCL 1,000 MG, VIAL MATE ADAPTER 1 EACH in D5W 250 ML IV SCH ×2 (11:58→21:55)
--- NOTE | 2016-10-21 13:18 | IPN ---
DATE: 10/21/2016 SUBJECTIVE: Today, the patient tells me that she is having persistent diarrhea. She is having dry heaves. She tells me that she is still having abdominal pain. No chest pain. No fevers, chills, nausea. No vomiting. OBJECTIVE: VITAL SIGNS: Temperature 97.1, pulse 69, respiratory rate 16, blood pressure 112/56. GENERAL: She is a middle-aged female laying in bed at a 15-degree angle. She does not appear to be in any acute distress. HEENT: Cranial nerves II-XII are grossly intact. She has moist mucous membranes. No elevation of jugular venous pressure (JVP). CARDIOVASCULAR EXAM: S1, S2 regular. RESPIRATORY EXAM: Clear. ABDOMINAL EXAM: Benign. Bowel sounds are present. The abdomen is soft. It is nontender to light palpation, diffusely tender to deep palpation. She has a peripherally inserted central catheter (PICC) line in her upper extremity. Extremities: No clubbing, cyanosis or edema. LABORATORY STUDIES: WBC 3.2 down from 4.5, hemoglobin 11.3 down from 12.3, platelet count 145 down from 173, ESR 28. Chemistry panel: Sodium 143, potassium 3.8, chloride 110, bicarbonate 26, BUN 7, creatinine 0.7, CRP 1.9, lipase is within normal limits. INR is 2.2. Microbiology: Blood cultures are pending. A gastrointestinal (GI) PCR panel from 10/19/2016 was positive for Norovirus. A CT scan from 10/19/2016 reveals descending colon and sigmoid colon diverticulosis without diverticulitis. Additionally, descending colon and sigmoid colon wall thickening compatible with colitis. ASSESSMENT AND PLAN: This is a 50-year-old female with nausea, diarrhea, abdominal pain. Problems: 1. Nausea, abdominal pain and diarrhea. Likely related to Norovirus colitis. Given that the patient's symptoms have persisted over the last 72 hours, I will keep the patient for further observation and supportive care. She does not appear to be dehydrated, and I will discontinue IV fluids as she has a dilutional drop in all of her cell lines. I will provide her with a BRAT diet. She is on antibiotics, and she is certainly at risk for developing Clostridium difficile and as such, I will recheck a GI PCR panel. She is currently on oral Flagyl and Cipro. However, if GI PCR panel returns negative or if she is no longer having diarrhea, these can likely be discontinued given that it is viral colitis. 2. Recent left upper extremity deep vein thrombosis (DVT) associated with a PICC line. She currently has a PICC line in her right upper extremity. She is on Coumadin. She has been bridged with Lovenox and today her international normalized ratio (INR) is therapeutic, and I will discontinue the Lovenox. 3. History of hiatal hernia, status post fundoplication. 4. Crohn's disease with multiple exacerbations. Her medication is currently being held by her media professional, Dr. Salamanca, in [place] since her fundoplication on 10/01/2016. I suspect she would benefit from close followup with him regarding reinitiation of these medications once her acute syndrome has resolved. 5. Bacteremia. The patient is on vancomycin IV, which is to be continued until follows up with her infectious disease doctor at [place] on 10/31/2017. Will continue her medications for now. Will continue this medication as prescribed. 6. Mood disorder. Continue with Cymbalta. 7. Gastroesophageal reflux disease. The patient is on IV Protonix as well as Pepcid. 8. Rheumatoid arthritis. The patient is on prednisone. 9. Celiac disease with proper diet, BRAT diet, gluten free. She is on dicyclomine. 10. Restless leg syndrome. The patient is on Requip. 11. Asthma, stable. Not currently on any medications. DISPOSITION: Continue to monitor the patient for an additional 24 hours. I suspect if she is able to tolerate a diet and her diarrhea is resolving, she can be discharged as early as tomorrow.
[2016-10-21] MEDS: WARFARIN SOD 5 MG TAB PO SCH (16:35)
[2016-10-21] MEDS: MONTELUKAST 10 MG TAB PO SCH (21:12)
--- NOTE | 2016-10-21 21:33 | ECGEPIP ---
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
[2016-10-21] MEDS: PANTOPRAZOLE 40MG INJ (PROTONIX) (C9113) IV SCH (21:55)
[2016-10-22] MEDS: NORCO, ANEXSIA 5/325MG TABLET (HYDROcodone/ACETAMINOPHEN) PO PRN (01:23)
[2016-10-22 02:00] VITALS: BP 123/71
[2016-10-22] MEDS: SODIUM CHLORIDE 0.9% INJ 10 ML SYR IV SCH (05:04)
[2016-10-22] MEDS: metroNIDAZOLE (FLAGYL) 500 MG TAB PO SCH (05:04)
[2016-10-22] MEDS: CIPROFLOXACIN 500 MG TAB PO SCH (05:04)
[2016-10-22] MEDS: SODIUM CHLORIDE 0.9% INJ 10 ML SYR IV PRN ×3 (05:19→16:02)
[2016-10-22] MEDS: ONDANSETRON 4MG/2ML VIAL (J2405) IV PRN (05:19)
[2016-10-22 05:43] LABS: MEAN CORPUSCULAR HEMOGLOBIN 29.9 pg (27.0-33.0); MEAN CORPUSCULAR HGB CONC 34.7 g/dl (32.0-36.5); MEAN CORPUSCULAR VOLUME 86.2 fl (80.0-96.0); RED CELL DISTRIBUTION WIDTH 14.4 % (11.5-14.5); WHITE BLOOD COUNT 2.7 K/mm3 (4.0-10.0)
[2016-10-22 05:47] LABS: INR 3.16
[2016-10-22 05:50] LABS: ANION GAP 9 MEQ/L (8-16); BLOOD UREA NITROGEN 3 MG/DL (7-18); CARBON DIOXIDE LEVEL 26 MEQ/L (21-32); CHLORIDE LEVEL 110 MEQ/L (98-107); GLOMERULAR FILTRATION RATE > 60.0 (>51); GLUCOSE, FASTING 111 MG/DL (70-105); MAGNESIUM LEVEL 2.2 MG/DL (1.8-2.4); POTASSIUM SERUM 3.7 MEQ/L (3.5-5.1); SODIUM LEVEL 145 MEQ/L (136-145)
[2016-10-22 06:00] VITALS: BP 112/65
[2016-10-22] MEDS ORDERED: LOPERAMIDE 2 MG CAP PO PRN (07:45)
[2016-10-22] MEDS ORDERED: LACTOBACILLUS ACIDOPHILUS CAP (BACID) PO SCH (08:00)
[2016-10-22] MEDS: VANCOMYCIN HCL 1,000 MG, VIAL MATE ADAPTER 1 EACH in D5W 250 ML IV SCH (09:44)
[2016-10-22] MEDS: predniSONE 5 MG TAB PO SCH ×2 (09:44→16:02)
[2016-10-22] MEDS: DULoxetine 30 MG CAP (CYMBALTA) PO SCH (09:45)
[2016-10-22] MEDS: FAMOTIDINE 20 MG TAB PO SCH (09:45)
[2016-10-22 10:00] VITALS: BP 111/58
[2016-10-22] MEDS ORDERED: ONDANSETRON 4 MG ORAL DISINTEGRATING TAB (S0181) SL PRN (10:45)
[2016-10-22] MEDS: VANCOMYCIN HCL 500 MG in D5W MINI-BAG PLUS 100 ML IV SCH (11:12)
[2016-10-22 14:00] VITALS: BP 136/88
--- NOTE | 2016-10-22 21:24 | DSES ---
DATE OF ADMISSION: 10/20/2016 DATE OF DISCHARGE: 10/22/2016 DISCHARGE DIAGNOSIS: Norovirus. SECONDARY DIAGNOSES: 1. Nausea. 2. Diarrhea. 3. Abdominal pain. 4. Bacteremia. 5. Deep venous thrombosis (DVT). 6. Crohn's disease. 7. Hiatal hernia. 8. Mood disorder. 9. Gastroesophageal reflux disease. 10. Rheumatoid arthritis. 11. Celiac disease. 12. Restless leg syndrome. 13. Asthma. HOSPITAL COURSE: The patient is a 50-year-old female who had recently had fundoplication which was complicated by bacteremia. The patient did have a peripherally inserted central catheter (PICC) line in her right upper extremity but developed a DVT so it was removed. She has been on anticoagulation, bridging Lovenox to Coumadin and had a PICC line placed in her left upper extremity. She was discharged from the hospital on IV vancomycin in the left upper extremity and bridging. She presented to the emergency room with diarrhea and abdominal pain and was started on Cipro and Flagyl on discharge. She returned two days later with persistence of symptoms. She was admitted to the hospitalist service. She was found to have norovirus and her symptoms did gradually improve. She was started on Bacid. Cipro and Flagyl were discontinued. She also was given one dose of Imodium. She did complete her bridging and was therapeutic on Coumadin and, as such, her Lovenox has been discontinued. SUBJECTIVE: This morning, the patient tells me she feels well. She still has some soreness in her belly but the diarrhea is resolving. She denies chest pain, shortness of breath, any nausea, vomiting, fevers or chills. OBJECTIVE: VITAL SIGNS: Temperature 97.8, pulse 78, respiratory rate 16, blood pressure 112/65, oxygen saturation 99% on room air. GENERAL: She is a pleasant, middle aged, female sleeping peacefully in bed, but easily arousable to verbal stimuli. She does not appear to be in any acute distress. HEENT: Cranial nerves II-XII are grossly intact. She has moist mucous membranes. No elevation in her central venous pressure (CVP). CARDIOVASCULAR EXAM: S1, S2, regular. RESPIRATORY EXAM: Clear. ABDOMINAL EXAM: Bowel sounds are present. The abdomen is soft. There is no guarding. Diffusely tender to deep palpation but improved. LABORATORY STUDIES: WBC 2.7, hemoglobin 11.2, hematocrit 32.4, platelet count 153, ESR 28. Chemistry panel: Sodium 145, potassium 3.7, chloride 110, bicarbonate 26, BUN 3, creatinine 0.7, CRP 1.9. INR today is 3.1. Microbiology: Blood cultures were negative. Norovirus was positive in the stool from 10/21/2016 and 10/19/2016. She did have a CT scan done on 10/19/2016, which revealed findings suggestive of colitis. ASSESSMENT AND PLAN: This is a 50-year-old female with nausea, diarrhea, and abdominal pain, resolving. 1. Norovirus. This is the likely etiology for her nausea, abdominal pain, and diarrhea. It is resolving with supportive measures. She was briefly on IV fluids. Her Cipro and Flagyl that was started on 10/19/2016, have been discontinued. She is tolerating a BRAT diet. I have started the patient on Bacid which she has tolerated well also and she did receive one dose of Imodium. 2. Left upper extremity deep venous thrombosis (DVT). The patient has been on Lovenox and Coumadin. Yesterday, she was therapeutic and as such her Lovenox was discontinued and she was continued on Coumadin. She was slightly high today. She has been receiving several antibiotics. I will ask her to hold today's Coumadin and tomorrow's Coumadin and then resume it as scheduled. Followup her INRs as previously scheduled from her recent discharge from [facility]. 3. Hiatal hernia status post fundoplication. Followup with her surgeon as previously scheduled. 4. Crohn's disease with multiple exacerbations. She tells me that her medications were held by her adjunct faculty for medical terminology, Dr. Salamanca, since she underwent fundoplication. I suspect she would benefit from close followup as scheduled with him for resumption of these medications. 5. Bacteremia. The patient is on vancomycin which is to be continued until 10/31/2016, until she follows up with her infectious diseases specialist. She is to continue this and followup as scheduled. 6. Mood disorder. She is continued on Cymbalta. 7. Gastroesophageal reflux disease. She is on Pepcid. 8. Rheumatoid arthritis. She is on prednisone. 9. Celiac disease. She is on a BRAT and gluten free diet and dicyclomine. 10. Restless leg syndrome. She is on Requip. 11. Asthma. She does not require any medications. Respiratory status was stable during her stay here. DISPOSITION: The patient is being discharged home. Her clinical status is improved. She is to followup with her primary care provider (PCP) in 7 days, followup with infectious diseases (ID) as scheduled, followup with gastroenterology as scheduled. Her activity is as prior to admission. Her diet is BRAT, gluten free. She is to return to the emergency room (ER) if her symptoms worsen and to followup her INR as previously scheduled. MEDICATIONS: At the time of discharge: - hydrocodone-acetaminophen 5-325 one tablet every 6 hours for pain - artificial tears one drop daily - dicyclomine 20 mg three times a day as needed for cramps - duloxetine 60 mg twice a day - Pepcid 20 mg twice a day - Breo Ellipta 200-25 one puff daily - hyoscyamine 0.125 mg sublingually every 4 hours as needed for cramps - Incruse Ellipta 62.5 mcg daily - Singulair 10 mg nightly - Zofran 4 mg every 8 hours as needed for nausea and vomiting - potassium chloride 40 mEq daily - prednisone 5 mg three times a day - Requip 1.5 mg nightly for restless leg syndrome - vancomycin 1.5 grams twice a day - Coumadin 3 mg every evening Greater than 30 minutes spent organizing disposition.
== END 2016-10-22 16:42 | disposition home or self-care (01) ==
LOC: M ED 16:30 → EDBD 16:30 → M ED INP 19:07 → M MSPAV 20:20
PROVIDERS: ADMIT Internal Medicine; ATTEND Internal Medicine
DX: A08.11 Acute gastroenteropathy due to Norwalk agent (principal); R11.0 Nausea; R19.7 Diarrhea, unspecified; R10.9 Unspecified abdominal pain; R78.81 Bacteremia; K44.9 Diaphragmatic hernia without obstruction or gangrene; K21.9 Gastro-esophageal reflux disease without esophagitis; M06.9 Rheumatoid arthritis, unspecified; J45.909 Unspecified asthma, uncomplicated; G25.81 Restless legs syndrome; K90.0 Celiac disease; K50.90 Crohn's disease, unspecified, without complications; Z79.899 Other long term (current) drug therapy; Z79.01 Long term (current) use of anticoagulants; Z79.52 Long term (current) use of systemic steroids; Z88.0 Allergy status to penicillin; Z88.2 Allergy status to sulfonamides; Z88.8 Allergy status to other drugs, medicaments and biological substances
CPT/HCPCS: 36415; 80048; 80076; 80202; 83690; 83735; 85025; 85027; 85610; 85652; 85730; 86140; 87040; 87507; 93005; 96361; 96372; 96374; 96375; 96376; 99284; C9113; J1650; J2405; J3370

== ENCOUNTER → 2016-10-20 | Outpatient (REF) | payer BC ==
[~2016-10-20] MED LIST changes: +ARTI99.0 OU; +BREO1INH3 INH; +CIPR-249 PO; +CIPR500T3 PO; +COUM1TAB19 PO; +FAMO1TAB11 PO; +FLAG500T PO; +INCR1INH INH; +LEVS0.124 SL; +LOVE0.6I2 SC; +METR1TAB66 PO; +POTA20TA PO; +POTA20TA4 PO; +PRED10TA2 PO; +PRED5TA PO; +ROPI0.5T PO; +VANC1VLAD INJ; +ZOFR20TA PO
[2016-10-20 14:24] LABS: INR 1.52
== END ==
LOC: M LAB REF 12:50
PROVIDERS: ATTEND Family Medicine
DX: I82.622 Acute embolism and thrombosis of deep veins of left upper extremity (principal); R78.81 Bacteremia; I80.8 Phlebitis and thrombophlebitis of other sites; Z79.2 Long term (current) use of antibiotics

== ENCOUNTER → 2016-10-20 | Outpatient (REF) | payer BC ==
[2016-10-20 14:15] LABS: BASO % 0.5 % (0.0-1.0); EOS # 0.1 K/mm3 (0.0-0.50); EOS % 3.1 % (0.0-3.0); LARGE UNSTAINED CELL # 0.1 K/mm3 (0.0-0.4); LARGE UNSTAINED CELL % 3.4 % (0.0-4.0); LYMPH # 0.7 K/mm3 (1.5-4.5); LYMPH % 20.3 % (24.0-44.0); MEAN CORPUSCULAR HEMOGLOBIN 29.2 pg (27.0-33.0); MEAN CORPUSCULAR VOLUME 88.5 fl (80.0-96.0); MONO # 0.4 K/mm3 (0.0-0.8); MONO % 10.4 % (0.0-5.0); NEUTROPHILS # 2.2 K/mm3 (1.8-7.7); NEUTROPHILS % 62.3 % (36.0-66.0); PLATELET COUNT, AUTOMATED 181 k/mm3 (150-450); RED CELL DISTRIBUTION WIDTH 14.9 % (11.5-14.5); WHITE BLOOD COUNT 3.6 K/mm3 (4.0-10.0)
[2016-10-20 14:31] LABS: ALBUMIN 3.5 GM/DL (3.2-5.2); ALBUMIN/GLOBULIN RATIO 0.97 (1.00-1.93); ALKALINE PHOSPHATASE 61 U/L (45-117); ALT/SGPT 28 U/L (12-78); ANION GAP 13 MEQ/L (8-16); AST/SGOT 15 U/L (15-37); BILIRUBIN,TOTAL 0.3 MG/DL (0.2-1.0); BLOOD UREA NITROGEN 11 MG/DL (7-18); CALCIUM LEVEL 8.5 MG/DL (8.5-10.1); CARBON DIOXIDE LEVEL 25 MEQ/L (21-32); CHLORIDE LEVEL 105 MEQ/L (98-107); CREATININE FOR GFR 0.79 MG/DL (0.55-1.02); GLOMERULAR FILTRATION RATE > 60.0 (>51); GLUCOSE, FASTING 83 MG/DL (70-105); POTASSIUM SERUM 3.4 MEQ/L (3.5-5.1); SODIUM LEVEL 143 MEQ/L (136-145); TOTAL PROTEIN 7.1 GM/DL (6.4-8.2)
[2016-10-20 15:03] LABS: ERYTHROCYTE SEDIMENTATION RATE 27 mm/hr (0-30)
== END ==
LOC: M LAB REF 12:47
PROVIDERS: ATTEND Internal Medicine Infectious Disease
DX: R78.81 Bacteremia (principal); I80.9 Phlebitis and thrombophlebitis of unspecified site; Z79.1 Long term (current) use of non-steroidal anti-inflammatories (NSAID)

== ENCOUNTER → 2016-10-23 | Outpatient (REF) | payer BC ==
[~2016-10-23] MED LIST changes: +ARTI99.0 OU; +BREO1INH3 INH; +CIPR500T3 PO; +FAMO1TAB11 PO; +METR1TAB66 PO; +POTA20TA PO; +PRED5TA PO; +ROPI0.5T PO; +ZOFR20TA PO
[2016-10-23 13:12] LABS: INR 3.05
== END ==
LOC: M LAB REF 12:06
PROVIDERS: ATTEND Pediatrics
DX: I82.622 Acute embolism and thrombosis of deep veins of left upper extremity (principal); E46 Unspecified protein-calorie malnutrition; R78.81 Bacteremia; I80.8 Phlebitis and thrombophlebitis of other sites; Z79.2 Long term (current) use of antibiotics

== ENCOUNTER → 2016-10-23 | Outpatient (REF) | payer BC ==
[2016-10-23 13:08] LABS: BASO % 0.2 % (0.0-1.0); EOS % 0.5 % (0.0-3.0); LARGE UNSTAINED CELL # 0.2 K/mm3 (0.0-0.4); LYMPH # 1.3 K/mm3 (1.5-4.5); MEAN CORPUSCULAR HGB CONC 33.8 g/dl (32.0-36.5); MEAN CORPUSCULAR VOLUME 85.8 fl (80.0-96.0); MONO # 0.7 K/mm3 (0.0-0.8); MONO % 9.4 % (0.0-5.0); NEUTROPHILS % 69.8 % (36.0-66.0); PLATELET COUNT, AUTOMATED 194 k/mm3 (150-450); RED CELL DISTRIBUTION WIDTH 14.6 % (11.5-14.5); WHITE BLOOD COUNT 7.2 K/mm3 (4.0-10.0)
[2016-10-23 13:32] LABS: ALBUMIN 3.2 GM/DL (3.2-5.2); ALBUMIN/GLOBULIN RATIO 0.97 (1.00-1.93); ALKALINE PHOSPHATASE 59 U/L (45-117); ALT/SGPT 45 U/L (12-78); ANION GAP 8 MEQ/L (8-16); AST/SGOT 40 U/L (15-37); BILIRUBIN,TOTAL 0.3 MG/DL (0.2-1.0); BLOOD UREA NITROGEN 7 MG/DL (7-18); CALCIUM LEVEL 8.6 MG/DL (8.5-10.1); CARBON DIOXIDE LEVEL 27 MEQ/L (21-32); CHLORIDE LEVEL 106 MEQ/L (98-107); GLOMERULAR FILTRATION RATE > 60.0 (>51); GLUCOSE, FASTING 92 MG/DL (70-105); SODIUM LEVEL 141 MEQ/L (136-145); TOTAL PROTEIN 6.5 GM/DL (6.4-8.2)
[2016-10-23 13:40] LABS: ERYTHROCYTE SEDIMENTATION RATE 23 mm/hr (0-30)
[2016-10-23 13:43] LABS: POTASSIUM SERUM 2.9 MEQ/L (3.5-5.1)
== END ==
LOC: M LAB REF 12:02
PROVIDERS: ATTEND Internal Medicine Infectious Disease
DX: R78.81 Bacteremia (principal); I80.8 Phlebitis and thrombophlebitis of other sites; Z79.2 Long term (current) use of antibiotics

== ENCOUNTER → 2016-10-25 | Outpatient (REF) | payer BC ==
[2016-10-25 13:34] LABS: INR 3.09
[2016-10-25 14:13] LABS: ALBUMIN 3.4 GM/DL (3.2-5.2); ALBUMIN/GLOBULIN RATIO 0.94 (1.00-1.93); BILIRUBIN,TOTAL 0.4 MG/DL (0.2-1.0); CALCIUM LEVEL 9.1 MG/DL (8.5-10.1); CREATININE FOR GFR 1.23 MG/DL (0.55-1.02)
== END ==
LOC: M LAB REF 12:17
PROVIDERS: ATTEND Family Medicine
DX: Z48.815 Encounter for surgical aftercare following surgery on the digestive system (principal); Z79.01 Long term (current) use of anticoagulants; I82.622 Acute embolism and thrombosis of deep veins of left upper extremity

== ENCOUNTER → 2016-11-22 | Outpatient (CLI) | payer BC ==
[2016-11-22 19:16] LABS: INR 1.35
== END ==
LOC: M LAB 18:45
PROVIDERS: ATTEND Family Medicine
DX: I82.622 Acute embolism and thrombosis of deep veins of left upper extremity (principal)

== ENCOUNTER → 2016-11-25 | Outpatient (CLI) | payer BC ==
[2016-11-25 13:45] LABS: INR 1.5
== END ==
LOC: M LAB 12:59
PROVIDERS: ATTEND Family Medicine
DX: I82.622 Acute embolism and thrombosis of deep veins of left upper extremity (principal)

== ENCOUNTER → 2016-11-30 | Outpatient (CLI) | payer BC ==
[2016-11-30 16:54] LABS: INR 1.4
== END ==
LOC: M LAB 16:00
PROVIDERS: ATTEND Family Medicine
DX: I82.622 Acute embolism and thrombosis of deep veins of left upper extremity (principal)

== ENCOUNTER → 2016-12-04 | Outpatient (CLI) | payer BC ==
[2016-12-04 18:54] LABS: INR 1.99
== END ==
LOC: M LAB 17:28
PROVIDERS: ATTEND Family Medicine
DX: I82.622 Acute embolism and thrombosis of deep veins of left upper extremity (principal)

== ENCOUNTER → 2016-12-14 | Outpatient (CLI) | payer BC ==
[2016-12-14 21:10] LABS: INR 2.11
== END ==
LOC: M LAB 20:02
PROVIDERS: ATTEND Family Medicine
DX: I82.622 Acute embolism and thrombosis of deep veins of left upper extremity (principal)

== ENCOUNTER → 2017-04-13 | Outpatient (CLI) | payer BC | LOC: M RAD 10:34 | DX: I82.622 Acute embolism and thrombosis of deep veins of left upper extremity (principal) | CPT/HCPCS: 93971 ==

== ENCOUNTER 2017-06-05 23:18 | Emergency (ER) | payer BC ==
[2017-06-06 01:07] LABS: BASO # 0.1 10^3/uL (0.0-0.2); BASO % 0.5 % (0.0-1.0); EOS # 0.2 10^3/uL (0.0-0.50); EOS % 1.6 % (0.0-3.0); HEMATOCRIT 38.5 % (36.0-47.0); HEMOGLOBIN 12.4 g/dl (12.0-16.0); IMMATURE GRANULOCYTE % 0.3 % (0-3.0); LYMPH # 1.8 10^3/uL (1.5-4.5); LYMPH % 17.7 % (24.0-44.0); MEAN CORPUSCULAR HEMOGLOBIN 26.3 pg (27.0-33.0); MEAN CORPUSCULAR HGB CONC 32.2 g/dl (32.0-36.5); MEAN CORPUSCULAR VOLUME 81.6 fl (80.0-96.0); MONO # 0.9 10^3/uL (0.0-0.8); MONO % 8.6 % (0.0-5.0); NEUTROPHILS # 7.1 10^3/uL (1.8-7.7); NEUTROPHILS % 71.3 % (36.0-66.0); PLATELET COUNT, AUTOMATED 231 10^3/uL (150-450); RED BLOOD COUNT 4.72 10^6/uL (4.00-5.40); RED CELL DISTRIBUTION WIDTH 17.2 % (11.5-14.5); WHITE BLOOD COUNT 9.9 10^3/uL (4.0-10.0)
[2017-06-06] MEDS: NS 1,000 ML IV (01:18)
[2017-06-06 01:25] LABS: LACTIC ACID SEPSIS PROTOCOL 0.7 MMOL/L (0.4-2.0)
[2017-06-06 01:29] LABS: ALBUMIN 3.6 GM/DL (3.2-5.2); ALBUMIN/GLOBULIN RATIO 1.06 (1.00-1.93); ALKALINE PHOSPHATASE 94 U/L (45-117); ALT/SGPT 33 U/L (12-78); ANION GAP 5 MEQ/L (8-16); AST/SGOT 22 U/L (7-37); BILIRUBIN,DIRECT < 0.1 MG/DL (0.0-0.2); BILIRUBIN,TOTAL 0.3 MG/DL (0.2-1.0); BLOOD UREA NITROGEN 19 MG/DL (7-18); CALCIUM LEVEL 9.2 MG/DL (8.5-10.1); CARBON DIOXIDE LEVEL 30 MEQ/L (21-32); CHLORIDE LEVEL 107 MEQ/L (98-107); CK-MB VALUE MASS 1.9 NG/ML (0.0-3.6); CPK CREATINE PHOSPHOKINASE 97 U/L (26-192); CREATININE FOR GFR 0.95 MG/DL (0.55-1.30); GLOMERULAR FILTRATION RATE > 60.0 (>51); GLUCOSE, FASTING 84 MG/DL (70-100); LIPASE 107 U/L (73-393); MB/CK RELATIVE INDEX 1.95 (< OR =4); POTASSIUM SERUM 4.1 MEQ/L (3.5-5.1); SODIUM LEVEL 142 MEQ/L (136-145); TROPONIN I < 0.02 NG/ML (< 0.10)
[2017-06-06 04:46] LABS: APPEARANCE, URINE CLOUDY (CLEAR); BACTERIA, URINE AUTO 1+ (NEGATIVE); BILIRUBIN, URINE AUTO NEGATIVE (NEGATIVE); BLOOD, URINE BLOOD 2+ (NEGATIVE); COLOR, URINE YELLOW (YELLOW); GLUCOSE, URINE (UA) AUTO NEGATIVE (NEGATIVE); KETONE, URINE AUTO 1+ mg/dL (NEGATIVE); LEUKOCYTE ESTERASE, URINE AUTO 3+ (NEGATIVE); MUCUS, URINE SMALL (NEGATIVE); NITRITE, URINE AUTO POSITIVE (NEGATIVE); PROTEIN, URINE AUTO 1+ mg/dL (NEGATIVE); RBC, URINE AUTO 25 /HPF (0-3); SPECIFIC GRAVITY URINE AUTO 1.023 (1.002-1.035); SQUAMOUS EPITHELIAL CELL UR AU 0 /HPF (0-6); UROBILINOGEN, URINE AUTO 0.2 mg/dL (0.0-2.0); WBC, URINE AUTO 178 /HPF (0-3)
[2017-06-06] MEDS: PHENAZOPYRIDINE 100 MG TAB PO (05:00)
[2017-06-06] MEDS: CIPROFLOXACIN 500 MG TAB PO (05:00)
== END 2017-06-06 05:09 | disposition home or self-care (01) ==
LOC: M ED 23:18
DX: N39.0 Urinary tract infection, site not specified (principal); K21.9 Gastro-esophageal reflux disease without esophagitis; K90.0 Celiac disease; F33.9 Major depressive disorder, recurrent, unspecified; M06.9 Rheumatoid arthritis, unspecified; Z79.51 Long term (current) use of inhaled steroids; Z79.899 Other long term (current) drug therapy; Z96.0 Presence of urogenital implants; Z90.49 Acquired absence of other specified parts of digestive tract; Z88.5 Allergy status to narcotic agent; Z88.1 Allergy status to other antibiotic agents; Z91.018 Allergy to other foods; Z88.0 Allergy status to penicillin; Z91.011 Allergy to milk products; Z88.2 Allergy status to sulfonamides
CPT/HCPCS: 93005

== ENCOUNTER 2017-07-12 18:13 | Emergency (ER) | payer BC ==
[2017-07-12] MEDS: methylPREDNISolone INJ 125 MG/2 ML VIAL (J2930) IV (19:50)
[2017-07-12] MEDS: NS 1,000 ML IV ×2 (19:55→20:07)
[2017-07-12] MEDS: TRIMETHOBENZAMIDE HCL INJ 200 MG/2 ML VIAL (J3250) IM (19:55)
[2017-07-12 20:01] LABS: BASO # 0.1 10^3/uL (0.0-0.2); EOS # 0.1 10^3/uL (0.0-0.50); EOS % 1.9 % (0.0-3.0); HEMATOCRIT 39.4 % (36.0-47.0); HEMOGLOBIN 12.9 g/dl (12.0-15.5); IMMATURE GRANULOCYTE % 0.4 % (0-3.0); LYMPH # 1.7 10^3/uL (1.5-4.5); MEAN CORPUSCULAR HEMOGLOBIN 26.7 pg (27.0-33.0); MEAN CORPUSCULAR HGB CONC 32.7 g/dl (32.0-36.5); MEAN CORPUSCULAR VOLUME 81.6 fl (80.0-96.0); MONO # 0.6 10^3/uL (0.0-0.8); MONO % 7.8 % (0.0-5.0); NEUTROPHILS # 4.7 10^3/uL (1.8-7.7); NEUTROPHILS % 64.9 % (36.0-66.0); PLATELET COUNT, AUTOMATED 319 10^3/uL (150-450); RED BLOOD COUNT 4.83 10^6/uL (4.00-5.40); RED CELL DISTRIBUTION WIDTH 15.5 % (11.5-14.5); WHITE BLOOD COUNT 7.2 10^3/uL (4.0-10.0)
[2017-07-12] MEDS: SCOPOLAMINE 1MG TRANSDERMAL PATCH TOP (20:07)
[2017-07-12 20:20] LABS: ANION GAP 9 MEQ/L (8-16); BLOOD UREA NITROGEN 10 MG/DL (7-18); C REACTIVE PROTEIN QUANTITATIV < 0.30 MG/DL (0.00-0.30); CALCIUM LEVEL 8.1 MG/DL (8.5-10.1); CARBON DIOXIDE LEVEL 23 MEQ/L (21-32); CHLORIDE LEVEL 113 MEQ/L (98-107); CREATININE FOR GFR 0.64 MG/DL (0.55-1.30); GLOMERULAR FILTRATION RATE > 60.0 (>51); GLUCOSE, FASTING 75 MG/DL (70-100); POTASSIUM SERUM 3.3 MEQ/L (3.5-5.1); SODIUM LEVEL 145 MEQ/L (136-145)
[2017-07-12 20:23] LABS: ERYTHROCYTE SEDIMENTATION RATE 24 mm/hr (0-30)
[2017-07-12] MEDS: KETOROLAC 30 MG/ML VIAL (J1885) IV (20:50)
[2017-07-12] MEDS: ONDANSETRON 4MG/2ML VIAL (J2405) IV (20:50)
[2017-07-12] MEDS: MORPHINE 4 MG/ML 1ML VIAL/SYRINGE (J2270) IV (20:51)
[2017-07-12 21:10] LABS: LACTIC ACID SEPSIS PROTOCOL 1.5 MMOL/L (0.4-2.0)
[2017-07-12] MEDS: PROCHLORPERAZINE 10 MG/2 ML VIAL (J0780) IV (21:41)
[2017-07-12 21:43] LABS: CPK CREATINE PHOSPHOKINASE 87 U/L (26-192)
[2017-07-12 22:13] LABS: CK-MB VALUE MASS 1.5 NG/ML (<3.6); MB/CK RELATIVE INDEX 1.72 (< OR =4); TROPONIN I < 0.02 NG/ML (< 0.10)
[2017-07-12] MEDS ORDERED: PROCHLORPERAZINE 5 MG TAB (S0183) PO (23:00)
== END 2017-07-12 22:56 | disposition home or self-care (01) ==
LOC: M ED 18:13
DX: R10.13 Epigastric pain (principal); R11.2 Nausea with vomiting, unspecified; J45.909 Unspecified asthma, uncomplicated; F32.9 Major depressive disorder, single episode, unspecified; K50.919 Crohn's disease, unspecified, with unspecified complications; K90.0 Celiac disease; Z87.19 Personal history of other diseases of the digestive system; Z79.899 Other long term (current) drug therapy; Z88.5 Allergy status to narcotic agent; Z88.1 Allergy status to other antibiotic agents; Z88.0 Allergy status to penicillin; Z88.2 Allergy status to sulfonamides; Z91.011 Allergy to milk products; Z91.018 Allergy to other foods
CPT/HCPCS: J2270

== ENCOUNTER → 2018-03-15 | Outpatient (CLI) | payer MEDICARE, BC ==
[~2018-03-15] MED LIST changes: +DIAZ2TAB; +FOLI1TAB11; +FOLI1TAB11 PO; -FOLI1TAB4 PO; +KLOR20TA42 PO; +METR-201 PO; -METR1TAB66 PO; +NORCOTAB PO; -POTA20TA PO; +PROC10TA4 PO; +PROC25SU24 PR; +SCOP1DIS; +VITA-182; -ZOFR20TA PO; +ZOFR4TAB14 PO; +ZOFR4TAB16 PO; -ZOFR4TAB3 PO
--- NOTE | 2018-03-15 14:50 | REP ---
NASAL BONES, THREE VIEWS: HISTORY: Contusion. There is no acute fracture or bone lesion. The sinuses are clear. IMPRESSION: Normal study. Electronically Signed by Easton Delgado MD 03/15/2018 02:58 P
== END ==
LOC: M WUC 14:28
PROVIDERS: ATTEND Physician Assistant
DX: S00.33XA Contusion of nose, initial encounter (principal); X58.XXXA Exposure to other specified factors, initial encounter; Y92.9 Unspecified place or not applicable

== ENCOUNTER → 2018-05-07 | Outpatient (CLI) | payer MEDICARE, BC ==
[2018-05-07 15:21] LABS: HEMATOCRIT 40.8 % (36.0-47.0); HEMOGLOBIN 13.6 g/dl (12.0-15.5); MEAN CORPUSCULAR HEMOGLOBIN 28.9 pg (27.0-33.0); MEAN CORPUSCULAR HGB CONC 33.3 g/dl (32.0-36.5); MEAN CORPUSCULAR VOLUME 86.8 fl (80.0-96.0); PLATELET COUNT, AUTOMATED 310 10^3/uL (150-450); WHITE BLOOD COUNT 6.8 10^3/uL (4.0-10.0)
[2018-05-07 15:36] LABS: ALBUMIN 3.6 GM/DL (3.2-5.2); ALT/SGPT 36 U/L (12-78); BILIRUBIN,TOTAL 0.2 MG/DL (0.2-1.0); BLOOD UREA NITROGEN 16 MG/DL (7-18); C REACTIVE PROTEIN QUANTITATIV < 0.30 MG/DL (0.00-0.30); CALCIUM LEVEL 8.9 MG/DL (8.5-10.1); CARBON DIOXIDE LEVEL 29 MEQ/L (21-32); CHLORIDE LEVEL 107 MEQ/L (98-107); CREATININE FOR GFR 1.04 MG/DL (0.55-1.30); GLUCOSE, FASTING 107 MG/DL (70-100); POTASSIUM SERUM 3.9 MEQ/L (3.5-5.1); SODIUM LEVEL 142 MEQ/L (136-145); TOTAL PROTEIN 7.2 GM/DL (6.4-8.2)
[2018-05-07 15:46] LABS: VITAMIN B12 LEVEL 539 PG/ML (247-911)
[2018-05-07 16:01] LABS: ERYTHROCYTE SEDIMENTATION RATE 18 mm/hr (0-30)
== END ==
LOC: M LAB 14:32
PROVIDERS: ATTEND Internal Medicine Gastroenterology
DX: R10.9 Unspecified abdominal pain (principal); K50.90 Crohn's disease, unspecified, without complications

== ENCOUNTER 2018-06-25 20:21 | Observation (INO) | payer BC, MEDICARE ==
[~2018-06-25] VITALS: Ht 162.6 cm; Wt 78.4 kg
[~2018-06-25 20:21] MED LIST changes: -/DULO30CA OR; -/ONDA4TA OR; -/SUCR1TA OR; +CYMB1CAP5 OR; +HYDR-3715 PO; -METR-201 PO; +METR-265 PO; -NORCOTAB PO; +ONDA-1 OR; +ONDA-227 OR; +SUCR1TAB56 OR; -ZOFR8TAB OR
[2018-06-25] MEDS ORDERED: ONDANSETRON 4MG/2ML VIAL (J2405) IV ONE (20:45)
[2018-06-25] MEDS: HYDROMORPHONE HCL 0.5 MG/ 0.5 ML SYRINGE (J1170 PER 1) IV PRN ×2 (20:46→22:18)
[2018-06-25 20:50] LABS: BASO % 0.2 % (0.0-1.0); EOS # 0.1 10^3/uL (0.0-0.50); EOS % 0.6 % (0.0-3.0); HEMATOCRIT 48.3 % (36.0-47.0); HEMOGLOBIN 16.2 g/dl (12.0-15.5); LYMPH % 6.1 % (24.0-44.0); MEAN CORPUSCULAR HEMOGLOBIN 29.2 pg (27.0-33.0); MEAN CORPUSCULAR HGB CONC 33.5 g/dl (32.0-36.5); MONO # 0.9 10^3/uL (0.0-0.8); MONO % 5.7 % (0.0-5.0); NEUTROPHILS # 13.5 10^3/uL (1.8-7.7); NEUTROPHILS % 86.8 % (36.0-66.0); PLATELET COUNT, AUTOMATED 323 10^3/uL (150-450); RED BLOOD COUNT 5.55 10^6/uL (4.00-5.40); WHITE BLOOD COUNT 15.6 10^3/uL (4.0-10.0)
[2018-06-25] MEDS: MONTELUKAST 10 MG TAB PO SCH (21:00)
[2018-06-25] MEDS: predniSONE 10 MG TAB PO SCH (21:00)
[2018-06-25 21:27] LABS: ALBUMIN 4.1 GM/DL (3.2-5.2); ALT/SGPT 37 U/L (12-78); BILIRUBIN,DIRECT < 0.1 MG/DL (0.0-0.2); BILIRUBIN,TOTAL 0.4 MG/DL (0.2-1.0); BLOOD UREA NITROGEN 22 MG/DL (7-18); CALCIUM LEVEL 8.9 MG/DL (8.5-10.1); CARBON DIOXIDE LEVEL 25 MEQ/L (21-32); CHLORIDE LEVEL 108 MEQ/L (98-107); CPK CREATINE PHOSPHOKINASE 84 U/L (26-192); CREATININE FOR GFR 1.06 MG/DL (0.55-1.30); GLOMERULAR FILTRATION RATE 57.7 (>51); GLUCOSE, FASTING 110 MG/DL (70-100); LIPASE 151 U/L (73-393); MB/CK RELATIVE INDEX 1.67 (< OR =4); POTASSIUM SERUM 4.1 MEQ/L (3.5-5.1); SODIUM LEVEL 141 MEQ/L (136-145); TOTAL PROTEIN 7.7 GM/DL (6.4-8.2); TROPONIN I < 0.02 NG/ML (< 0.10)
[2018-06-25] MEDS ORDERED: ISOVUE-370 76% 100ML VIAL (Q9967) As Ordered ONE (21:40)
[2018-06-25] MEDS ORDERED: NS 1,000 ML IV ONE (22:00)
--- NOTE | 2018-06-25 23:01 | REP ---
Clinical: Acute chest pain. Technique: Axial contrast enhanced images from the thoracic inlet to the upper abdomen using 100 ml Isovue 370 intravenous contrast material with coronal and sagittal re-formations. Findings: Satisfactory enhancement of the pulmonary vasculature is achieved and no filling defects are identified to suggest pulmonary embolus. Thoracic aorta is normal caliber without aneurysm or dissection. Heart and pericardium are normal. Bilateral lung stewart are well aerated and clear without acute pulmonary parenchymal consolidation or atelectasis. No nodule or mass lesion. No pleural effusion/reaction. No pneumothorax. No adenopathy. Thyroid gland appears grossly normal. Small to moderate hiatal hernia at the gastroesophageal junction noted. Impression: No evidence for pulmonary embolus. No acute pleuroparenchymal or mediastinal process. Small to moderate hiatal hernia. Electronically Signed by Wero Mccullough MD 06/25/2018 10:53 P
--- NOTE | 2018-06-25 23:03 | REP ---
Clinical: Abdominal pain. Technique: Axial contrast enhanced images from the lung bases to the pubic symphysis using 100 ml Isovue 370 intravenous contrast material with coronal and sagittal re-formations. Comparison: 07/04/2017, 09/06/2016, 06/30/2015. Findings: Lung bases are clear. Visualized heart and pericardium normal. Small/moderate hiatal hernia identified at the gastroesophageal junction. Liver demonstrates fatty infiltration with stable 1.4 cm cyst in the left lobe unchanged compared to 2016. Spleen, pancreas, bilateral adrenal glands and kidneys are normal. Evidence for prior cholecystectomy. Small and large bowel without obstruction or acute inflammatory process. Pelvis demonstrates normal bladder and age-appropriate uterus/adnexa. No ascites. No free air. No adenopathy. Abdominal aorta and vasculature without aneurysm or dissection. Musculoskeletal structures are intact. Impression: 1. Small to moderate hiatal hernia. 2. Fatty infiltration to the liver with 1.4 cm stable cyst. 3. No acute abdominopelvic pathology appreciated. 4. Evidence of prior cholecystectomy. Electronically Signed by Wero Mccullough MD 06/25/2018 10:55 P
[2018-06-25] MEDS ORDERED: PANTOPRAZOLE 40MG INJ (PROTONIX) (C9113) IV ONE (23:30)
[2018-06-25] MEDS ORDERED: GI COCKTAIL 50ML BTL(HYOSCYAMINE/MAALOX/LIDOCAINE VISCOUS)(1:3:1) PO ONE (23:30)
[2018-06-26] VITALS (7 sets, daily range): BP systolic 98–116; BP diastolic 52–71
[2018-06-26] MEDS ORDERED: CARA1TAB6 PO ×2 (00:28→01:32)
[2018-06-26] MEDS ORDERED: PROT1TAB2 PO ×2 (00:28→01:32)
[2018-06-26] MEDS ORDERED: OXYCODONE/APAP 5MG/325MG(BULK FOR ED) 1 TABLET PO ONE (00:30)
[2018-06-26] MEDS ORDERED: HYDROMORPHONE HCL 0.5 MG/ 0.5 ML SYRINGE (J1170 PER 1) IV PRN (00:45)
[2018-06-26] MEDS ORDERED: DIAZ2TAB PO (01:32)
[2018-06-26] MEDS ORDERED: SULF500T2 PO (01:32)
[2018-06-26] MEDS ORDERED: VITA-183 PO (01:32)
[2018-06-26] MEDS ORDERED: FOLI1TAB11 PO (01:32)
[2018-06-26] MEDS ORDERED: PRED10TA2 PO (01:32)
[2018-06-26] MEDS ORDERED: SUDA30TA8 PO (01:32)
[2018-06-26] MEDS ORDERED: DICY1CAP8 PO (01:32)
[2018-06-26] MEDS ORDERED: SCOP1DIS TD (01:32)
[2018-06-26] MEDS ORDERED: CYAN1000VL IM (01:32)
[2018-06-26] MEDS ORDERED: HYOSCYAMINE SULFATE 0.125 MG SUBL TABLET SL PRN (02:45)
[2018-06-26] MEDS ORDERED: SUCRALFATE 1 GM TAB PO PRN (02:45)
[2018-06-26] MEDS ORDERED: diazePAM 2 MG TAB PO PRN (02:45)
[2018-06-26] MEDS ORDERED: ONDANSETRON 4 MG TAB (S0181) PO PRN (02:45)
--- NOTE | 2018-06-26 03:15 | HPEPDOC ---
[facility] Medical History & Physical Date of Admission Jun 26, 2018 History and Physical CHIEF COMPLAINT: abdominal pain and chest pain HISTORY OF PRESENT ILLNESS: Melody Shaw is a 52 YO F with history of Crohn's disease, Celiac disease, asthma, inflammatory arthropathies, history of Berenice fundlopication in 2017, history of esophageal stricture s/p dilatation who presents with several days of abdominal and epigastric pain. She describes the pain as chest pain but when she points to the location, she points to the epigastrum. She states that the pain is 7/10 at its worst, is worsened by movement, and is associated with some shortness of breath. She has not had any hemoptysis or dark/bloody stools recently. She states she does feel somewhat lightheaded and dizzy. She saw her GI physician, Dr. Gay, in [place] this morning and was told that her epigastric pain may be related to fundlopication and possible reversal or air pocket in her lower esophageal junction. She was scheduled for an esophogram next week. In the [facility] ED, she underwent CT abdomen/pelvis and was found to have a small to moderate hiatal hernia. She was given Dilauded and Percocet in the ED for pain management. The hospitalist service was called to admit the patient for further workup. PAST MEDICAL HISTORY: 1. Crohns Disease 2. Celiac disease 3. Mitral valve prolapse 4. Asthma 5. Rheumatoid arthritis 6. Hiatal hernia PAST SURGICAL HISTORY: 1. Tonsillectomy 2. Ganglion cyst removal from L wrist 3. Berenice fundlopication 4. Cholecystectomy 5. Bladder suspension SOCIAL HISTORY: Resides in [place] with and children. Never smoker. Denies EtOH use. FAMILY HISTORY: Noncontributory ALLERGIES: Please see below. REVIEW OF SYSTEMS: Denies fever. No chills. No headache. No blurred vision. No shortness of breath. No chest pain. Positive for some nausea and abdominal pain. No hematemesis. Negative for diarrhea. No tingling, numbness, or weakness in the arms or lower extremities. All other review of systems were negative. HOME MEDICATIONS: Please see below. PHYSICAL EXAMINATION: VITAL SIGNS: Temperature 99.2, pulse 97, respiratory rate 20, blood pressure 94/57, pulse oximetry 96 % on room air. GENERAL APPEARANCE: Laying in bed. Very somnolent. Falling asleep every third or fourth word. No acute distress HEENT: Poor dentition, moist mucous membranes. No thyromegaly CARDIOVASCULAR: Regular rate and rhythm, no murmurs, rubs or gallops, normal S1, normal S2 LUNGS: Clear to auscultation bilaterally without any adventitious breath sounds appreciated ABDOMEN: Soft, nontender to palpation, positive bowel sounds, no organomegaly MUSCULOSKELETAL: Moves all extremities well EXTREMITIES: No clubbing, cyanosis or edema NEUROLOGICAL: no focal deficits, unable to perform entire exam as patient was very somnolent PSYCHIATRIC: Awake, alert and oriented, normal mood, normal affect LABORATORY DATA: See below. IMAGING: CT angio Chest: No evidence for pulmonary embolus. No acute pleural parenchymal or mediastinal process. Small to moderate hiatal hernia CT abdomen/pelvis: Small to moderate hiatal hernia. Fatty infiltration of the liver with 1.4 cm stable cysts. No acute abdominopelvic pathology appreciated. Evidence of prior cholecystectomy. MICROBIOLOGY: Please see below. ASSESSMENT: This is a 52-year-old female with a history of numerous inflammatory diseases including Crohn's disease, celiac disease on chronic steroids and history of Berenice fundoplication in 2017, currently being seen by gastroenterology in [place] who complains of several days, severe epigastric pain. She was seen by her sql analyst this morning and she was scheduled to have an esophagram next week for suspected Verdin's esophagus/ulcers. She currently does not have any hemoptysis, or changes in her stool including dark, tarry stools or maroon-colored stools. Given her history of chronic steroids, the patient is at risk for peptic ulcer disease, but this is less likely. She will be admitted to the medical surgical floor for pain management and further observation. PLAN: 1. Abdominal pain: It appears that the patient's abdominal pain improved with a GI cocktail in the ED. The patient also has a history of pancreatitis. Will continue pain management at this time. -Will consult GI in the morning for further investigations as to whether her paraesophageal hernia has recurred -Lipase is 151. Low suspicion for pancreatitis -Continue Dilaudid as needed for pain. -NPO diet for now -Continue Pepcid, Carafate and Protonix -1 L fluid bolus 2. Crohn's disease -Continue 40 mg prednisone daily 3. Asthma: - Continue Singulair DVT Ppx: Heparin Code Status: FULL CODE Vital Signs Vital Signs Date Time Temp Pulse Resp B/P (MAP) Pulse Ox O2 Delivery O2 Flow Rate FiO2 06/26/18 02:20 99.2 97 20 94/57 (69) 96 Room Air 06/26/18 00:00 2.0 Laboratory Data Labs 24H Laboratory Tests 2 06/25/18 20:41: Immature Granulocyte % (Auto) 0.6, White Blood Count 15.6H, Red Blood Count 5.55H, Hemoglobin 16.2H, Hematocrit 48.3H, Mean Corpuscular Volume 87.0, Mean Corpuscular Hemoglobin 29.2, Mean Corpuscular Hemoglobin Concent 33.5, Red Cell Distribution Width 13.6, Platelet Count 323, Neutrophils (%) (Auto) 86.8H, Lymphocytes (%) (Auto) 6.1L, Monocytes (%) (Auto) 5.7H, Eosinophils (%) (Auto) 0.6, Basophils (%) (Auto) 0.2, Neutrophils # (Auto) 13.5H, Lymphocytes # (Auto) 1.0L, Monocytes # (Auto) 0.9H, Eosinophils # (Auto) 0.1, Basophils # (Auto) 0.0, Nucleated Red Blood Cells % (auto) 0.0, Anion Gap 8, Glomerular Filtration Rate 57.7, Calcium Level 8.9, Aspartate Amino Transf (AST/SGOT) 20, Alanine Aminotransferase (ALT/SGPT) 37, Alkaline Phosphatase 92, Total Bilirubin 0.4, Direct Bilirubin < 0.1, Total Creatine Kinase 84, Creatine Kinase MB 1.0, Creatine Kinase MB Relative Index 1.67, Troponin I < 0.02, Total Protein 7.7, Albumin 4.1, Albumin/Globulin Ratio 1.14, Lipase 151 06/25/18 22:19: Lactic Acid Level 0.7 CBC/BMP Laboratory Tests 06/25/18 20:41 Red Blood Count 5.55 H, Mean Corpuscular Volume 87.0, Mean Corpuscular Hemoglobin 29.2, Mean Corpuscular Hemoglobin Concent 33.5, Red Cell Distribution Width 13.6, Neutrophils (%) (Auto) 86.8 H, Lymphocytes (%) (Auto) 6.1 L, Monocytes (%) (Auto) 5.7 H, Eosinophils (%) (Auto) 0.6, Basophils (%) (Auto) 0.2, Neutrophils # (Auto) 13.5 H, Lymphocytes # (Auto) 1.0 L, Monocytes # (Auto) 0.9 H, Eosinophils # (Auto) 0.1, Basophils # (Auto) 0.0 Home Medications Scheduled (Incruse Ellipta) 62.5 Mcg/Inh Inh, 62.5 MCG INH DAILY Cholecalciferol (Vitamin D-3) 1,000 Unit Cap, 2,000 UNIT PO DAILY Cyanocobalamin (Cyanocobalamin) 1,000 Mcg/1 Ml Inj, 1,000 MCG IM MTHLY TAKES IN BEGINNING OF EACH MONTH, NO SPECIFIC DAY: LAST TOOK IN MAY Duloxetine Hcl (Duloxetine HCl) 60 Mg Cap, 120 MG PO QHS Famotidine (Famotidine) 20 Mg Tab, 20 MG PO BID Fluticasone/Vilanterol (Breo Ellipta 200-25 Mcg/INH) 1 Inh Inh, 1 PUFF INH DAILY Folic Acid (Folic Acid) 1 Mg Tab, 1 MG PO DAILY Montelukast Sodium (Singulair) 10 Mg Tab, 10 MG PO QHS Pantoprazole Sodium Sesquihydr (Protonix) 40 Mg Tab, 40 MG PO BID Prednisone (Prednisone) 10 Mg Tab, 40 MG PO QHS Sulfasalazine (Sulfasalazine) 500 Mg Tab, 1,000 MG PO TID Scheduled PRN Diazepam (Diazepam) 2 Mg Tab, 2 MG PO QID PRN for VERTIGO/DIZZINESS Dicyclomine HCl (Dicyclomine HCl) 10 Mg Cap, 20 MG PO TID PRN for CRAMPS Hyoscyamine Sulfate (Levsin/Sl) 0.125 Mg Sub, 0.125 MG SL QID PRN for CRAMPS Ondansetron HCl (Zofran) 4 Mg Tab, 4 MG PO Q8H PRN for NAUSEA OR VOMITING Pseudoephedrine Hcl (Sudafed Congestion) 30 Mg Tab, 30 MG PO Q4H PRN for NASAL CONGESTION Scopolamine (Scopolamine) 1 Mg/3 Days Dis, 1 MG TD Q3RD PRN for NAUSEA Sucralfate (Carafate) 1 Gm Tab, 1 GM PO TID PRN for ACID REFLUX Allergies Coded Allergies: Milk Containing Products (Verified Allergy, Unknown, 06/25/18) Penicillins (Verified Allergy, Unknown, 06/25/18) Sulfa (Sulfonamide Antibiotics) (Verified Allergy, Unknown, 06/25/18) codeine (Verified Allergy, Unknown, 06/25/18) erythromycin base (Verified Allergy, Unknown, 06/25/18) gluten (Verified Allergy, Unknown, 06/25/18) GME ATTESTATION GME ATTESTATION My faculty preceptor for this patient encounter was physically present during the encounter and was fully available. All aspects of the patient interview, examination, medical decision making process, and medical care plan development were reviewed and approved by the faculty preceptor. The faculty preceptor is aware and concurs with the plan as stated in the body of this note and will attest to such by his/her cosignature. ATTENDING NOTE ATTENDING ATTESTATION: I discussed and reviewed the findings and plan with resident. I have personally assessed patient at bedside and agreed with resident's assessment and plans. MAL AGUILAR MD Jun 26, 2018 03:15 SANDRA WATKINS MD Jun 26, 2018 03:43
[2018-06-26] MEDS: HEPARIN SOD (PORCINE) 5000 UNITS/ML VIAL SC SCH ×2 (05:00→18:43)
[2018-06-26] MEDS: HYDROMORPHONE HCL 0.5 MG/ 0.5 ML SYRINGE (J1170 PER 1) IV PRN ×4 (05:01→20:20)
[2018-06-26] MEDS ORDERED: VITAMIN D 1,000 INTERNATIONAL UNITS TABLET PO SCH (09:00)
[2018-06-26 09:23] LABS: HEMATOCRIT 40.4 % (36.0-47.0); MEAN CORPUSCULAR HEMOGLOBIN 28.6 pg (27.0-33.0); MEAN CORPUSCULAR HGB CONC 32.4 g/dl (32.0-36.5); MEAN CORPUSCULAR VOLUME 88.2 fl (80.0-96.0); PLATELET COUNT, AUTOMATED 226 10^3/uL (150-450); RED BLOOD COUNT 4.58 10^6/uL (4.00-5.40)
[2018-06-26 09:39] LABS: BLOOD UREA NITROGEN 18 MG/DL (7-18); CALCIUM LEVEL 6.8 MG/DL (8.5-10.1); CARBON DIOXIDE LEVEL 29 MEQ/L (21-32); CHLORIDE LEVEL 110 MEQ/L (98-107); CK-MB VALUE MASS < 1.0 NG/ML (<3.6); CPK CREATINE PHOSPHOKINASE 46 U/L (26-192); GLOMERULAR FILTRATION RATE > 60.0 (>51); GLUCOSE, FASTING 113 MG/DL (70-100); HEMOGLOBIN 13.1 g/dl (12.0-15.5); MB/CK RELATIVE INDEX 2.17 (< OR =4); POTASSIUM SERUM 3.8 MEQ/L (3.5-5.1); SODIUM LEVEL 144 MEQ/L (136-145); TROPONIN I < 0.02 NG/ML (< 0.10)
[2018-06-26] MEDS ORDERED: GI COCKTAIL 50ML BTL(HYOSCYAMINE/MAALOX/LIDOCAINE VISCOUS)(1:3:1) PO ONE (11:00)
[2018-06-26] MEDS: PANTOPRAZOLE 40MG TAB (PROTONIX) PO SCH ×2 (11:04→20:18)
[2018-06-26] MEDS: FAMOTIDINE 20 MG TAB PO SCH ×2 (11:04→20:18)
[2018-06-26] MEDS: FOLIC ACID 1 MG TAB PO SCH (11:04)
[2018-06-26] MEDS ORDERED: LIDOCAINE 2% INJ 100 MG/5 ML SDV (FOR ANES.) As Ordered ONE (16:33)
[2018-06-26] MEDS ORDERED: PROPOFOL 200 MG/20 ML VIAL As Ordered ONE (16:33)
--- NOTE | 2018-06-26 17:47 | ROOR ---
Patient Name: Melody Shaw Procedure Date: 06/26/2018 4:55 PM Date of : 1965 Age: 52 Gender: Female Note Status: Finalized Procedure: Upper Endoscopy + Biopsies Indications: Epigastric abdominal pain Providers: Augustine Gaines MD Referring MD: Gemini Salamanca MD Requesting Provider: Medicines: Monitored Anesthesia Care Complications: No immediate complications. Procedure: Pre-Anesthesia Assessment: - The heart rate, respiratory rate, oxygen saturations, blood pressure, adequacy of pulmonary ventilation, and response to care were monitored throughout the procedure. The Endoscope was introduced through the mouth, and advanced to the second part of duodenum. The upper GI endoscopy was accomplished without difficulty. The patient tolerated the procedure well. Findings: The Z-line was regular and was found 30 cm from the incisors. Evidence of a Berenice fundoplication was found at the gastroesophageal junction. The wrap appeared intact. This was traversed. No other significant abnormalities were identified in a careful examination of the stomach. Biopsies were taken with a cold forceps in the gastric antrum for Helicobacter pylori testing. The exam of the duodenum was otherwise normal. Impression: - Z-line regular, 30 cm from the incisors. - A Berenice fundoplication was found. The wrap appears intact. - Biopsies were taken with a cold forceps for Helicobacter pylori testing. - The examination was otherwise normal. Recommendation: - Patient has a contact number available for emergencies. The signs and symptoms of potential delayed complications were discussed with the patient. Return to normal activities tomorrow. Written discharge instructions were provided to the patient. - [facility] patient to [facility] for [facility] care. - Follow an antireflux regimen. - Continue present medications. - Await pathology results. - Telephone GI clinic for pathology results in 1 week. - Return to referring physician. - The findings and recommendations were discussed with the patient. - Use Levsin, NuLev (hyoscyamine) 0.125 mg 1-2 tabs SL q 4 hours. Augustine Gaines MD Augustine Gaines MD 06/26/2018 5:47:20 PM Electronically signed by Augustine Gaines MD Number of Addenda: 0 Note Initiated On: 06/26/2018 4:55 PM Estimated Blood Loss: Estimated blood loss: none.
[2018-06-26] MEDS ORDERED: LR 1,000 ML IV SCH (18:00)
[2018-06-26] MEDS ORDERED: ONDANSETRON 4MG/2ML VIAL (J2405) IV PRN (18:00)
[2018-06-26] MEDS ORDERED: fentaNYL 100 MCG/2 ML INJECTION (J3010) IV PRN (18:00)
[2018-06-26] MEDS: MONTELUKAST 10 MG TAB PO SCH (20:18)
[2018-06-26] MEDS: predniSONE 10 MG TAB PO SCH (20:19)
[2018-06-26] MEDS ORDERED: DULoxetine 30 MG CAP (CYMBALTA) PO SCH (21:00)
[2018-06-26] MEDS ORDERED: fentaNYL 100 MCG/2 ML INJECTION (J3010) As Ordered ONE (21:41)
[2018-06-27] MEDS: HEPARIN SOD (PORCINE) 5000 UNITS/ML VIAL SC SCH (05:27)
[2018-06-27 06:00] VITALS: BP_SYST 102; BP_SYST 117; BP_SYST 99; BP_DIAS 51; BP_DIAS 58; BP_DIAS 65
[2018-06-27 06:20] LABS: HEMATOCRIT 43.3 % (36.0-47.0); MEAN CORPUSCULAR HEMOGLOBIN 28.7 pg (27.0-33.0); MEAN CORPUSCULAR HGB CONC 32.3 g/dl (32.0-36.5); MEAN CORPUSCULAR VOLUME 88.7 fl (80.0-96.0); PLATELET COUNT, AUTOMATED 233 10^3/uL (150-450); RED BLOOD COUNT 4.88 10^6/uL (4.00-5.40); WHITE BLOOD COUNT 4.1 10^3/uL (4.0-10.0)
[2018-06-27 06:34] LABS: BLOOD UREA NITROGEN 12 MG/DL (7-18); CARBON DIOXIDE LEVEL 29 MEQ/L (21-32); CHLORIDE LEVEL 109 MEQ/L (98-107); CREATININE FOR GFR 0.83 MG/DL (0.55-1.30); GLOMERULAR FILTRATION RATE > 60.0 (>51); GLUCOSE, FASTING 126 MG/DL (70-100); POTASSIUM SERUM 4.1 MEQ/L (3.5-5.1); SODIUM LEVEL 142 MEQ/L (136-145)
[2018-06-27] MEDS: PANTOPRAZOLE 40MG TAB (PROTONIX) PO SCH (08:52)
--- NOTE | 2018-06-27 08:52 | ECGEPIP ---
Stationary ECG Study [facility] - ED Test Date: 2018-06-25 Pat Name: ALMA PACHECO Department: Room: [place] [address] Gender: F Public Health: gt : 1965 Requested By: MARKUS oWodruff Order Number: [id number] Reading MD: Lexie Galaviz Measurements Intervals Hendricks Rate: 108 P: 35 CT: 120 QRS: 15 QRSD: 90 T: 6 QT: 326 QTc: 439 Interpretive Statements SINUS TACHYCARDIA POSSIBLE RIGHT VENTRICULAR CONDUCTION DELAY ABNORMAL RHYTHM ECG DECREASED RATE 06/05/17 Electronically Signed On 06-27-2018 8:51:31 EDT by Lexie Galaviz
[2018-06-27] MEDS: FOLIC ACID 1 MG TAB PO SCH (08:53)
[2018-06-27] MEDS: FAMOTIDINE 20 MG TAB PO SCH (08:53)
[2018-06-27] MEDS ORDERED: SODIUM CHLORIDE 0.9% 1000ML IV ONE (09:00)
[2018-06-27] MEDS ORDERED: CALCIUM CARBONATE 500 MG CHEW U/D PO ONE (09:00)
[2018-06-27] MEDS ORDERED: CALCIUM/VITAMIN D 500 MG TAB PO SCH (09:00)
[2018-06-27] MEDS ORDERED: CALCD50TA PO (09:34)
[2018-06-27] MEDS ORDERED: TUMS500C PO (09:49)
[2018-06-27] MEDS ORDERED: GI COCKTAIL 50ML BTL(HYOSCYAMINE/MAALOX/LIDOCAINE VISCOUS)(1:3:1) PO ONE (11:00)
--- NOTE | 2018-06-27 15:51 | CR ---
DATE OF CONSULTATION: 06/26/2018 This is a 52-year-old female admitted to [facility] ([facility]) on 06/26/2018 with multiple medical history including Crohn's disease, celiac disease, asthma, inflammatory arthritis, status post Berenice fundoplication in September 2016. The patient was on her way back from seeing Dr. Gemini Bassett in [place], and she started coughing and developed severe epigastric pain. She described the pain as 7 out of 10. She also has some associated shortness of breath. She did not have any vomiting or hematemesis. The patient felt somewhat lightheaded and dizzy. She was scheduled apparently to have an esophagram in a week. She underwent a CT on admission, which showed a small to moderate hiatal hernia. She was seen by GI for upper endoscopy for further evaluation of this progressive pain. PAST MEDICAL HISTORY: Positive for: 1. Crohn's disease. 2. Celiac disease. 3. Status post mitral valve prolapse. 4. . 5. Rheumatoid arthritis (RA). 6. Hiatal hernia. PAST SURGICAL HISTORY: 1. Tonsillectomy. 2. Status post Berenice fundoplication in 2016. 3. Status post cholecystectomy. 4. Bladder suspension. SOCIAL HISTORY: Cigarettes, alcohol, drugs negative. FAMILY HISTORY: Noncontributory. ALLERGIES: No known drug declared allergies. 12-POINT REVIEW OF SYSTEMS: Noncontributory. PHYSICAL EXAMINATION: Abdomen is soft, nontender. No mass. No guarding. Mild epigastric pain as noted. splenomegaly. Bowel sounds positive. IMAGING STUDIES: Again, including abdominal CT on 06/25/2018, which showed a small to moderate hiatal hernia. Fatty infiltration of the liver with a stable cyst. No acute pathology, and the patient is status post cholecystectomy. LABORATORY STUDIES: Showed a white count of 15,600. Hemoglobin and hematocrit are 16.2 and 48.3, down today to 13.1 and 40.4. Chemistry was normal with normal liver functions, which were seen as a negative indicator for possible biliary tract stone as a possible cause of the patient's pain. The patient's lipase was normal. ANALYSIS: Epigastric pain of unknown etiology in a patient status post Berenice fundoplication. PLAN: Will be to set the patient up for an upper endoscopy for further evaluation.
--- NOTE | 2018-06-28 13:22 | DS.PDOC ---
Discharge Summary General Date of Admission Jun 26, 2018 at 03:02 Date of Discharge 06/27/18 Attending Physician: ANTONINA YA MD Specialist/Consultants Involve: Augustine Gaines Discharge Summary PROCEDURES PERFORMED DURING STAY: EGD ADMITTING DIAGNOSES: 1. epigastric pain DISCHARGE DIAGNOSES: 1. Epigastric pain, gastritis vs hiatal hernia 2. Hepatic steatosis 3. Hypocalcemia Crohn's disease Celiac disease Asthma Inflammatory arthropathy Paraesophageal hernia s/p Berenice fundoplication 2017 History of esophageal stricture S/P dilatation COMPLICATIONS/CHIEF COMPLAINT: epigastric pain HISTORY OF PRESENT ILLNESS: 52yo F presents to ER for sharp pressure-sensation in epigastric region that she states feels like it did 2 yrs ago prior to paraesophageal hernia repair with Berenice fundoplication. She states it started right after drinking coffee and a few hours after eating eggs. Has associated nausea, but no vomiting. No constipation or diarrhea. No blood loss in stools. States she normally only takes in liquids and soft foods due to her GI hx, but has had abd discomfort even when not eating or drinking since this episode started. She was initially scheduled to have an esophagram performed in a week, however, now began to experience these symptoms. HOSPITAL COURSE: Patient was admitted, made nothing by mouth. Stool occult was negative. She felt better since being given GI cocktail and was requesting diet. Imaging on admission revealed moderate hiatal hernia. GI Dr. Gaines was consulted and she underwent EGD the next day which did not reveal any abnormalities. She returned to her regular diet, which she tolerated well and otherwise remained stable, requesting to go home in time for the adoption of her foster daughter. She was able to keep her food down and felt her abd discomfort was still present, but much improved from admission. Of note, hepatosteatosis was noted on admission abd/pelvis Ct. Pt updated on results and agreeable to f/u o/p. Liver enzymes WNL. Pt counseled on wt loss and avoiding fatty foods and alcohol. Also of note, she was found to be hypocalcemic, possibly 2/2 underlying antacid regimen. She has been started on calcium + Vit D supplement and agreeable to f/u o/p. 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 ALLERGIES: Please see below. PHYSICAL EXAMINATION ON DISCHARGE: VITAL SIGNS: Please see below. GENERAL: NAD, A&Ox3 HEENT: nc, at, EOMI NECK: supple, no JVD CARDIOVASCULAR EXAMINATION: RRR, normal S1 S2 RESPIRATORY EXAMINATION: CTAB, no w/r/r ABDOMINAL EXAMINATION: soft, mid discomfort to palpation of epigastric region, normoactive bowel sounds. Nondistended, no guarding/r/r EXTREMITIES: 2+ pulses b/l, no cyanosis or edema SKIN: no visible rash or lesions, warm, dry NEUROLOGICAL EXAMINATION: no focal deficits, able to move all extremities LABORATORY DATA: Please see below. IMAGING: * 06/25/2018 CTA: No evidence for pulmonary embolus. No acute pleuroparenchymal or mediastinal process. Small to moderate hiatal hernia * 06/25/2018 CT abdomen and pelvis: 1. Small to moderate hiatal hernia. 2. Fatty infiltration to the liver with 1.4 cm stable cyst. 3. No acute abdominopelvic pathology appreciated. 4. Evidence of prior cholecystectomy. * 06/26/2018 EGD: - Z-line regular, 30 cm from the incisors. - A Berenice fundoplication was found. The wrap appears intact. - Biopsies were taken with a cold forceps for Helicobacter pylori testing. - The examination was otherwise normal. PROGNOSIS: good ACTIVITY: As tolerated. DIET: as tolerated DISPOSITION: home DISCHARGE INSTRUCTIONS: 1. Follow-up with PCP week 2. Return to [facility] for emergency 3. Follow-up with GI clinic regarding EGD results DISCHARGE CONDITION: Stable. TIME SPENT ON DISCHARGE: Greater than 35 minutes. Vital Signs/I&Os Vital Signs Date Time Temp Pulse Resp B/P (MAP) Pulse Ox O2 Delivery O2 Flow Rate FiO2 06/27/18 06:00 98.0 82 15 102/58 (73) 92 06/26/18 04:00 Room Air 06/26/18 00:00 2.0 I&O- Last 24 Hours up to 6 AM 06/28/18 06:00 Intake Total 970 ml Output Total 400 ml Balance 570 ml Microbiology Microbiology 06/26/18 Stool Occult Blood (ARTURO) - Final, Complete Discharge Medications Scheduled (Incruse Ellipta) 62.5 Mcg/Inh Inh, 62.5 MCG INH DAILY, (Reported) Calcium/Vitamin D (Oscal D) 500 Mg Tab, 1,000 MG PO DAILY Cholecalciferol (Vitamin D-3) 1,000 Unit Cap, 2,000 UNIT PO DAILY, (Reported) Cyanocobalamin (Cyanocobalamin) 1,000 Mcg/1 Ml Inj, 1,000 MCG IM MTHLY, (Reporte d) TAKES IN BEGINNING OF EACH MONTH, NO SPECIFIC DAY: LAST TOOK IN MAY Duloxetine Hcl (Duloxetine HCl) 60 Mg Cap, 120 MG PO QHS, (Reported) Famotidine (Famotidine) 20 Mg Tab, 20 MG PO BID, (Reported) Fluticasone/Vilanterol (Breo Ellipta 200-25 Mcg/INH) 1 Inh Inh, 1 PUFF INH DAILY, (Reported) Folic Acid (Folic Acid) 1 Mg Tab, 1 MG PO DAILY, (Reported) Montelukast Sodium (Singulair) 10 Mg Tab, 10 MG PO QHS, (Reported) Pantoprazole Sodium Sesquihydr (Protonix) 40 Mg Tab, 40 MG PO BID, (Reported) Prednisone (Prednisone) 10 Mg Tab, 40 MG PO QHS, (Reported) Sulfasalazine (Sulfasalazine) 500 Mg Tab, 1,000 MG PO TID, (Reported) Scheduled PRN Calcium Carbonate (Tums) 500 Mg Chw, 2 TAB PO Q4HP PRN for ABDOMINAL PAIN Diazepam (Diazepam) 2 Mg Tab, 2 MG PO QID PRN for VERTIGO/DIZZINESS, (Reported) Dicyclomine HCl (Dicyclomine HCl) 10 Mg Cap, 20 MG PO TID PRN for CRAMPS, (Reported) Hyoscyamine Sulfate (Levsin/Sl) 0.125 Mg Sub, 0.125 MG SL QID PRN for CRAMPS, (Reported) Ondansetron HCl (Zofran) 4 Mg Tab, 4 MG PO Q8H PRN for NAUSEA OR VOMITING, (Reported) Pseudoephedrine Hcl (Sudafed Congestion) 30 Mg Tab, 30 MG PO Q4H PRN for NASAL CONGESTION, (Reported) Scopolamine (Scopolamine) 1 Mg/3 Days Dis, 1 MG TD Q3RD PRN for NAUSEA, (Reported) Sucralfate (Carafate) 1 Gm Tab, 1 GM PO TID PRN for ACID REFLUX, (Reported) Allergies Coded Allergies: Milk Containing Products (Verified Allergy, Unknown, 06/25/18) Penicillins (Verified Allergy, Unknown, 06/25/18) Sulfa (Sulfonamide Antibiotics) (Verified Allergy, Unknown, 06/25/18) codeine (Verified Allergy, Unknown, 06/25/18) erythromycin base (Verified Allergy, Unknown, 06/25/18) gluten (Verified Allergy, Unknown, 06/25/18) GME ATTESTATION GME ATTESTATION My faculty preceptor for this patient encounter was physically present during the encounter and was fully available. All aspects of the patient interview, examination, medical decision making process, and medical care plan development were reviewed and approved by the faculty preceptor. The faculty preceptor is aware and concurs with the plan as stated in the body of this note and will attest to such by his/her cosignature. TARYN MENDOZA DO Jun 28, 2018 13:21
== END 2018-06-27 11:35 | disposition home or self-care (01) ==
LOC: M ED 20:21 → M ED INP 20:24 → UNDOADMOB 06-26 03:02 → M ED INP 06-26 03:02 → M MSPAV 06-26 04:19 → M ED INP 06-26 04:19 → UNDODISOB 06-27 11:35
PROVIDERS: ADMIT Student in an Organized Health Care Education/Training Program; ATTEND Internal Medicine
DX: R10.13 Epigastric pain (principal); K29.70 Gastritis, unspecified, without bleeding; K75.81 Nonalcoholic steatohepatitis (NASH); E83.51 Hypocalcemia; K50.90 Crohn's disease, unspecified, without complications; K90.0 Celiac disease; J45.909 Unspecified asthma, uncomplicated; K44.9 Diaphragmatic hernia without obstruction or gangrene; M06.4 Inflammatory polyarthropathy; I34.1 Nonrheumatic mitral (valve) prolapse; Z79.52 Long term (current) use of systemic steroids; Z79.899 Other long term (current) drug therapy; Z88.0 Allergy status to penicillin; Z88.2 Allergy status to sulfonamides; Z88.5 Allergy status to narcotic agent; Z91.011 Allergy to milk products
CPT/HCPCS: 36415; 43239; 71275; 74177; 80048; 80076; 82270; 82550; 82553; 83605; 83690; 84484; 85025; 85027; 88305; 93005; 93041; 96372; 96374; 96375; 96376; 99285; C9113; G0378; J1170; J2405; Q9967

== ENCOUNTER → 2018-07-05 | Outpatient (REF) | payer BC ==
[~2018-07-05] MED LIST changes: +CALCD50TA PO; +CARA1TAB6 PO; +DIAZ2TAB PO; +DICY1CAP8 PO; +PROT1TAB2 PO; +SCOP1DIS TD; +SUDA30TA8 PO; +TUMS500C PO; +VITA-183 PO
== END ==
LOC: M WUC 09:30
PROVIDERS: ATTEND Physician Assistant
DX: R11.0 Nausea (principal)

== ENCOUNTER 2018-11-23 23:43 | Emergency (ER) | payer BC ==
[~2018-11-23] VITALS: Ht 162.6 cm; Wt 81.8 kg
[~2018-11-23 23:43] MED LIST changes: -ARTI99.0 OU; +ARTIDRO2 OU; -DULO1CAP3 PO; +DULO1CAP6 PO; -OXYB10TA PO; +OXYB10TA2 PO
[2018-11-24] MEDS ORDERED: diphenhydrAMINE INJ 50MG/ML VIAL (J1200) IV STA (00:04)
[2018-11-24] MEDS ORDERED: MORPHINE 10 MG/ML 1ML VIAL (J2270) IV ONE (00:15)
[2018-11-24] MEDS ORDERED: PROPOFOL 200 MG/20 ML VIAL IV ONE (02:00)
[2018-11-24 02:30] VITALS: BP 124/85
[2018-11-24] MEDS ORDERED: PERC5TAB12 PO (02:58)
[2018-11-24] MEDS ORDERED: NORCO 5/325MG TABLET (BULK FOR ED) PO ONE (03:00)
--- NOTE | 2018-11-24 03:26 | REPVR ---
EXAM: CT Left Lower Extremity Without Contrast, Ankle EXAM DATE/TIME: 11/24/2018 2:48 AM CLINICAL HISTORY: 52 years old, female; Post reduction scan. Left ankle fracture. TECHNIQUE: Imaging protocol: CT of the Left lower extremity without contrast was performed. Exam focused on the ankle. Radiation optimization: All CT scans at this facility use at least one of these dose optimization techniques: automated exposure control; mA and/or kV adjustment per patient size (includes targeted exams where dose is matched to clinical indication); or iterative reconstruction. COMPARISON: CR Ankle, complete LEFT 11/24/2018 12:25 AM (The report from this study was not available for review at the time of this interpretation.) FINDINGS: Bones/joints: There is an acute, comminuted, fracture of the left medial malleolus without significant displacement, in improved alignment compared to the prior left ankle x-rays on 11/24/2018. There is also an acute, comminuted, mildly displaced fracture of the posterior malleolus in improved alignment compared to the prior left ankle x-rays on 11/24/2018. There is an oblique mildly displaced fracture of the left distal fibular metaphysis in improved alignment compared to the prior left ankle x-rays on 11/24/2018. The left tibiotalar alignment has been restored since the prior left ankle x-rays on 11/24/2018. The ankle mortise is symmetric. The joint spaces are preserved. No arthropathy is noted. There is no evidence for a bone tumor. There is no tarsal coalition. No os trigonum is present. Soft tissues: There is soft tissue swelling and edema around the left ankle. The left ankle is held in a cast. IMPRESSION: Trimalleolar left ankle fracture in significantly improved alignment compared to the prior left ankle x-rays on 11/24/2018 12:25 AM. Electronically signed by: Eladio Chan On 11/24/2018 03:25:58 AM
--- NOTE | 2018-11-24 08:18 | REP ---
Clinical: Status post reduction. Technique: AP and lateral views of the left ankle. Findings: Satisfactory reduction to comminuted fracture dislocation of the ankle. Impression: Satisfactory reduction. Electronically Signed by Wero Mccullough MD 11/24/2018 08:09 A
--- NOTE | 2018-11-24 08:27 | REP ---
Clinical: Trauma. Technique: AP, lateral, oblique views of the left ankle. Findings: Comminuted multipartite fracture dislocation involving distal fibula, medial malleolus and posterior malleolus with overlying soft tissue swelling. Impression: Comminuted multipartite fracture - dislocation of the ankle. Electronically Signed by Wero Mccullough MD 11/24/2018 08:19 A
--- NOTE | 2018-11-24 08:28 | REP ---
Clinical: Trauma. Technique: AP and lateral views of the left tibia / fibula. Findings: Multipartite fracture dislocation involving the distal tibia / fibula and ankle. Remainder examination appears grossly normal. Impression: Multipartite fracture dislocation involving the distal tibia and fibula at the ankle. Electronically Signed by Wero Mccullough MD 11/24/2018 08:21 A
--- NOTE | 2018-11-24 08:29 | REP ---
Clinical: Fracture reduction. Technique: Intraoperative fluoroscopic imaging using portable C-arm technique. Findings: The patient appears to be status post closed reduction for multipartite ankle fractures. Impression: Satisfactory reduction. Electronically Signed by Wero Mccullough MD 11/24/2018 08:22 A
--- NOTE | 2018-11-24 09:23 | ED PDOC ---
Post-Departure Follow-Up dr buchanan faxed formal report of left ankle for fu Estee Diaz MD Nov 24, 2018 09:23
--- NOTE | 2018-11-24 13:09 | CR ---
CONSULTATION AND PROCEDURE NOTE DATE OF CONSULTATION: 11/24/2018 INDICATION: Left ankle fracture dislocation. HISTORY OF PRESENT ILLNESS: Melody is a 52-year-old female with Crohn disease who had a mechanical fall earlier this evening and fell outside her garage and immediately had pain and deformity to her left ankle. She was unable to bear weight. X-rays at the [facility] (ER) revealed a trimalleolar ankle fracture dislocation. I was consulted for a reduction and fracture management. There are no open wounds. The patient was reporting severe pain in her left ankle. Denied numbness or tingling. The patient denied pain at the knee. PAST MEDICAL HISTORY: Is most notable for Crohn disease. She is on prednisone and one other strong immunosuppressive agent. She has had surgery for Crohn disease before. The patient does not smoke, abuse alcohol or illicit drugs. She lives with her . She lives right here in [place]. REVIEW OF SYSTEMS: The patient denies cardiac, pulmonary, abdominal symptoms. Musculoskeletal: As above. PHYSICAL EXAMINATION: Reveals a middle-age female in no distress. She is alert and oriented times three. Neurologic: Appropriate mood and affect. Cardiovascular: 1+ dorsalis pedis (DP) and posterior tibial (PT) pulses. The foot is warm and well-perfused. She could fire extensor hallucis longus (EHL) and flexor hallucis longus (FHL), but they were both weak partly due to effort. Sensation to light touch SV, DP, and tibial nerves intact. Skin: There are no open wounds, but there is one small scab about 6 cm proximal to the tip the medial malleolus. At the anterolateral calf, midcalf, there are several welts that look like bug bites. She has similar lesions on her arms. I then asked her if she picks her skin; and it was at that time that she decided to tell me that she had a recent staph infection, and that she was recently on antibiotic for a staph infection. She cannot recall which antibiotic it was, but it is finished. It seems to be related to her son having impetigo. X-rays, three views of left ankle revealed a trimalleolar ankle fracture dislocation with significant comminution. ASSESSMENT AND PLAN: A 52-year-old female with a left ankle trimalleolar fracture dislocation, which is closed. I recommended a prompt closed reduction and casting and then delayed treatment once the soft tissues have settled. Also, due to having a recent staph infection which she just finished antibiotics for, and she still has a scabbed wound, she would benefit from delayed open reduction internal fixation. The risks and benefits of a closed reduction and casting were discussed. Written informed consent was obtained. PROCEDURE NOTE: The left leg was marked, and then a time-out was performed per hospital protocol. Procedural sedation was initiated by the ER attending physician. An assistant head cashier held the knee flexed as I performed a closed reduction with manipulation, applying countertraction to the distal tibia and then cupping her heel and pulling it anteriorly. This led to a successful closed reduction. The miniature C-arm was used to confirm a successful closed reduction on AP mortise and lateral views. The patient did have temporary respiratory depression during the procedure but was also fighting which caused re-subluxation and required a second reduction. C-arm films confirmed a successful re-reduction. She was then placed into a very well-padded short-leg fiberglass cast. This was molded to maintain the reduction. Final mini C-arm images, AP lateral and mortis views showed a successful closed reduction of this trimalleolar ankle fracture dislocation. At the time of this dictation, the patient is being sent over for x-rays to confirm maintenance of the reduction, and then she will be sent for a CAT scan of left ankle for operative planning purposes. Prior to the sedation, I informed her she would have to be strictly nonweightbearing, elevate her left leg on three to four pillows, and she will followup with one of my partners in the office in 3-4 days for a skin check and see when she might be able to undergo open reduction and internal fixation (ORIF). I did caution her it can sometimes take 1-2 weeks before the swelling has subsided. She was also warned if she develops fracture blisters, it could take longer.
== END 2018-11-24 03:18 | disposition home or self-care (01) ==
LOC: M ED 23:43
DX: S82.852A Displaced trimalleolar fracture of left lower leg, initial encounter for closed fracture (principal); W17.89XA Other fall from one level to another, initial encounter; Y92.018 Other place in single-family (private) house as the place of occurrence of the external cause; J44.9 Chronic obstructive pulmonary disease, unspecified; F33.9 Major depressive disorder, recurrent, unspecified; K21.9 Gastro-esophageal reflux disease without esophagitis; K50.90 Crohn's disease, unspecified, without complications; Z79.899 Other long term (current) drug therapy; Z88.0 Allergy status to penicillin; Z88.1 Allergy status to other antibiotic agents; Z88.2 Allergy status to sulfonamides; Z88.5 Allergy status to narcotic agent; Z91.018 Allergy to other foods
CPT/HCPCS: 27818; 73590; 73600; 73610; 73700; 96374; 96375; 99152; 99153; 99285; J1200; J2270

== ENCOUNTER 2019-01-26 15:14 | Emergency (ER) | payer MEDICARE, BC ==
[~2019-01-26] VITALS: Ht 160 cm; Wt 81.8 kg
[2019-01-26] MEDS ORDERED: AMIT50TA (16:10)
[2019-01-26] MEDS ORDERED: ASPI-1 PO (16:10)
--- NOTE | 2019-01-26 16:42 | REP ---
Clinical: Cough and shortness of breath . Comparison: 02/29/2016 . Technique: PA and lateral. Findings: The mediastinum and cardiac silhouette are normal. The lung stewart are clear and without acute consolidation, effusion, or pneumothorax. The skeletal structures are intact and normal. Impression: 1. No acute cardiopulmonary process. Electronically Signed by Wero Mccullough MD 01/26/2019 04:34 P
[2019-01-26] MEDS ORDERED: DOXYCYCLINE HYCLATE 100 MG TAB PO ONE (17:00)
[2019-01-26] MEDS ORDERED: DOXY100C37 PO (17:04)
[2019-01-26 17:08] VITALS: BP 121/83
== END 2019-01-26 17:38 | disposition home or self-care (01) ==
LOC: M ED 15:14
DX: J06.9 Acute upper respiratory infection, unspecified (principal); Z88.0 Allergy status to penicillin; Z88.2 Allergy status to sulfonamides; Z88.1 Allergy status to other antibiotic agents; Z88.5 Allergy status to narcotic agent; Z91.011 Allergy to milk products; J45.909 Unspecified asthma, uncomplicated; G43.909 Migraine, unspecified, not intractable, without status migrainosus; G47.30 Sleep apnea, unspecified; K50.90 Crohn's disease, unspecified, without complications; K90.0 Celiac disease; M81.0 Age-related osteoporosis without current pathological fracture; Z79.899 Other long term (current) drug therapy

== ENCOUNTER 2019-06-24 16:20 | Observation (INO) | payer MEDICARE, BC ==
[~2019-06-24] VITALS: Ht 162.6 cm; Wt 79.4 kg
[~2019-06-24 16:20] MED LIST changes: +AMIT50TA PO; -ARTIDRO2 OU; +ASPI-1 PO; +DOXY100C37 PO; -OXYB10TA2 PO; +OXYB10TA23 PO; -ROPI0.5T PO; +ROPI0.5T3 PO; -ROPI1TAB PO; +ROPI1TAB3 PO
[2019-06-24] MEDS ORDERED: STEL90IN SC (16:31)
[2019-06-24] MEDS ORDERED: NS 1,000 ML IV ONE (16:45)
[2019-06-24] MEDS ORDERED: KETOROLAC 30 MG/ML VIAL (J1885) IV ONE (17:00)
[2019-06-24] MEDS ORDERED: ONDANSETRON 4MG/2ML VIAL (J2405) IV ONE (17:00)
[2019-06-24 17:11] LABS: BASO # 0.1 10^3/uL (0.0-0.2); BASO % 0.5 % (0.0-1.0); EOS # 0.2 10^3/uL (0.0-0.5); EOS % 1.5 % (0.0-3.0); HEMATOCRIT 47.5 % (36.0-47.0); HEMOGLOBIN 15.8 g/dl (12.0-15.5); LYMPH # 1.7 10^3/uL (1.5-5.0); LYMPH % 13.3 % (24.0-44.0); MEAN CORPUSCULAR HEMOGLOBIN 30.3 pg (27.0-33.0); MEAN CORPUSCULAR HGB CONC 33.3 g/dl (32.0-36.5); MEAN CORPUSCULAR VOLUME 91.2 fl (80.0-96.0); MONO # 0.6 10^3/uL (0.0-0.8); MONO % 4.3 % (0.0-5.0); NEUTROPHILS # 10.3 10^3/uL (1.5-8.5); NEUTROPHILS % 79.9 % (36.0-66.0); PLATELET COUNT, AUTOMATED 315 10^3/uL (150-450); RED BLOOD COUNT 5.21 10^6/uL (4.00-5.40); WHITE BLOOD COUNT 12.9 10^3/uL (4.0-10.0)
[2019-06-24 17:22] LABS: INR 0.92; PROTHROMBIN TIME 12.1 SECONDS (11.8-14.0)
[2019-06-24] MEDS ORDERED: ISOVUE-370 76% 100ML VIAL (Q9967) As Ordered ONE (17:25)
[2019-06-24] MEDS ORDERED: SCOP1PAT2 TOP (17:32)
[2019-06-24] MEDS ORDERED: PROAAER10 INH (17:32)
[2019-06-24] MEDS ORDERED: SUCR1ORA2 PO (17:32)
[2019-06-24] MEDS ORDERED: VITAD1000T PO (17:32)
[2019-06-24] MEDS ORDERED: TUMS500C PO (17:32)
[2019-06-24] MEDS ORDERED: OYST500T91 PO (17:32)
[2019-06-24 17:48] LABS: ALBUMIN 3.9 GM/DL (3.2-5.2); ALT/SGPT 42 U/L (12-78); BILIRUBIN,DIRECT < 0.1 MG/DL (0.0-0.2); BILIRUBIN,TOTAL 0.4 MG/DL (0.2-1.0); CK-MB VALUE MASS 1.8 NG/ML (<3.6); CPK CREATINE PHOSPHOKINASE 69 U/L (26-192); ETHYL ALCOHOL (ETHANOL) < 0.003 % (0.000-0.010); LIPASE 103 U/L (73-393); MB/CK RELATIVE INDEX 2.61 (< OR =4); TOTAL PROTEIN 7.3 GM/DL (6.4-8.2); TROPONIN I < 0.02 NG/ML (< 0.10)
--- NOTE | 2019-06-24 17:58 | REPVR ---
PROCEDURE INFORMATION: Exam: CT Abdomen And Pelvis With Contrast Exam date and time: 06/24/2019 5:46 PM Age: 53 years old Clinical indication: Abdominal pain; Generalized; Additional info: Severe abdominal pain TECHNIQUE: Imaging protocol: Computed tomography of the abdomen and pelvis with intravenous contrast. Radiation optimization: All CT scans at this facility use at least one of these dose optimization techniques: automated exposure control; mA and/or kV adjustment per patient size (includes targeted exams where dose is matched to clinical indication); or iterative reconstruction. Contrast material: ISOVUE 370; Contrast volume: 100 ml; Contrast route: IV; COMPARISON: CT ABD/PEL W/IV CONTRAST ONLY 06/25/2018 10:29 PM FINDINGS: Lungs: No suspicious mass or airspace process in the visualized lung bases. Mediastinum: Hiatal hernia measuring 4 cm is present. Liver: Liver demonstrates left lobe hepatic dome bilobed cyst measuring 14 mm with simple fluid density, and a posterior left lobe cyst measuring 6 mm. Gallbladder and bile ducts: Gallbladder is surgically absent. Pancreas: Pancreas appears normal. No focal mass or peripancreatic inflammation. Spleen: Spleen appears homogeneous without focal mass. Adrenals: Adrenal glands are normal in appearance. Kidneys and ureters: Kidneys appear normal, with no stone, solid mass or hydronephrosis. Stomach and bowel: No evidence of small bowel obstruction. Multiple fluid-filled loops of nondilated bowel with enhancing mucosa are present. Moderate pattern of colonic stool is present. Appendix: Appendix is not seen. No RLQ inflammation to suggest appendicitis. Intraperitoneal space: No pneumoperitoneum. Vasculature: Main portal and splenic veins enhance normally. No aortic aneurysm. Lymph nodes: No enlarged lymph nodes. Bladder: Urinary bladder appears normal. . Reproductive: No overt enlargement of the uterus or ovaries. Bones/joints: Bony structures show no acute fracture or destructive process. IMPRESSION: 1. Mildly dilated small bowel and colon which is fluid-filled to the distal descending portion with mild increase in mucosal enhancement. The pattern is nonobstructive and suggests probable inflammatory or infectious enteritis. 2. Left lobe hepatic low-density lesions most likely representing cysts or hemangiomas. These were present on prior CT from June 2017 and are unchanged and therefore benign. Electronically signed by: Jake Victoria On 06/24/2019 17:58:33 PM
[2019-06-24] MEDS ORDERED: fentaNYL 100 MCG/2 ML INJECTION (J3010) IV ONE (18:15)
--- NOTE | 2019-06-24 18:19 | REP ---
ABDOMINAL SERIES: AP and upright views of the abdomen and pelvis demonstrate mild diffuse extension of bowel with air fluid levels on the upright view. Findings may represent ileus versus some degree of obstruction. There are metallic clips in the upper abdomen. Tiny phleboliths are seen in the pelvis. There is mild curvature of the spine. An accompanying view of the chest demonstrates no acute infiltrate. Heart is normal in size and the mediastinal silhouette is unremarkable. IMPRESSION: No free air. Mild scattered bowel distention with air fluid levels on the upright view may represent a generalized ileus versus some degree of obstruction. Electronically Signed by Heriberto Jones MD 06/24/2019 06:24 P
[2019-06-24] MEDS ORDERED: LR 1,000 ML IV SCH (18:45)
[2019-06-24 19:15] LABS: C REACTIVE PROTEIN QUANTITATIV < 0.30 MG/DL (0.00-0.30)
[2019-06-24 19:45] LABS: ERYTHROCYTE SEDIMENTATION RATE 2 mm/hr (0-30)
[2019-06-24] MEDS ORDERED: ALBUTEROL 90 MCG/ACT 8GM HFA INHALER INH PRN (20:00)
[2019-06-24 20:08] VITALS: BP 109/72
--- NOTE | 2019-06-24 20:54 | HPEPDOC ---
[facility] Medical History & Physical Date of Admission Jun 24, 2019 Date of Service: Jun 24, 2019 Attending Physician: JEANNINE GONZALEZ MD History and Physical CHIEF COMPLAINT: Abdominal Pain, Nausea, and Vomiting HISTORY OF PRESENT ILLNESS: Patient is a 53-year-old female who presented to [facility] emergency department with complaint of abdominal pain. She states that on Sunday she started developing some abdominal pain that was manageable. She states that her abdominal pain had progressed till today when she developed nausea and vomiting. Since that her daughter had experienced some vomiting yesterday as well. She denies any fevers or chills. She has any diarrhea. She denies any bloody stools. She admits to a history of Crohn's disease and celiac however, states that after starting Stelara she has not had much if any diarrhea/Crohn's flares. She states that she has had bowel movements and is passing gas. Her last bowel movement was this afternoon. She states that she has had some intractable nausea, vomiting, abdominal pain throughout today. In the emergency department, the patient was found to be vitally stable. . She had mild leukocytosis 12.9. There is no elevation of her ESR, CRP. Her metabolic panel was otherwise unremarkable. Abdominal x-ray was obtained in the Emergency Department which revealed no free air, mild scattered bowel distention with air- fluid levels on the upright view representing generalized ileus versus some degree of obstruction. CT of the abdomen and pelvis was obtained which demonstrated mildly dilated small bowel and colon with fluid filled to the distal descending portion with mild increase in mucosal enhancement suggesting possible inflammatory or infectious enteritis. Patient was given fentanyl for pain relief in the emergency department. Hospitalist service was consulted for further evaluation and management PAST MEDICAL HISTORY: 1. Celiac disease 2. History of Crohn's disease on chronic prednisone and Stelara 3. Autoimmune arthropathy 4. Osteopenia\osteoporosis 5. History of left arm DVT secondary to line placement. PAST SURGICAL HISTORY: 1., Tonsillectomy. 2. Adenoidectomy 3., Sinus surgery 4. Right-sided inguinal hernia repair 5., Cholecystectomy 6. Exploratory laparotomy 7. Lion fundoplication for paraesophageal hernia repair SOCIAL HISTORY: Patient is and lives at home with her and children. . She is currently on disability from her Crohn's disease. She denies any history of alcohol use. She denies a history of tobacco use. He denies any history of IV or illicit drug use FAMILY HISTORY: Patient's mother, father both at the age of 62. Her mother from complications of chronic obstructive pulmonary disease. Her father from a myocardial infarction ALLERGIES: Please see below. REVIEW OF SYSTEMS: CONSTITUTIONAL: Denies fevers, chills, denies night sweats, denies unintentional weight loss or weight gain. HEENT: Denies dysphasia. Denies change in vision. Denies sore throat. CARDIOVASCULAR: Denies chest pain, palpitations or feelings of heart racing. RESPIRATORY: Denies shortness of breath. Denies cough. Denies wheezing. GASTROINTESTINAL: Admits to abdominal pain diffusely. Admits to nausea and vomiting. Denies diarrhea. Denies bloody stool. GENITOURINARY: Denies dysuria, increased frequency or increased urgency. SKIN:. Denies any rashes or lesions. MUSCULOSKELETAL:. Denies any musculoskeletal pain or weakness. NEUROLOGICAL:, Denies any changes in gait or speech. PSYCHIATRIC:. Denies a history of anxiety, depression. ENDOCRINE:, Denies history of diabetes. Denies heat intolerance or cold intolerance HEMATOLOGIC/LYMPHATIC: Denies easy bruising or bleeding. Admits to upper extremity superficial vein thrombosis. Denies history of pulmonary embolism or deep vein thrombosis HOME MEDICATIONS: Please see below. PHYSICAL EXAMINATION: VITAL SIGNS: Temperature 96.3, pulse 78, respiratory rate 20, blood pressure 116\76, pulse oximetry 96% on room air. GENERAL APPEARANCE: Noel shunt is awake, alert and oriented. She is lying comfortably in stretcher. She does not appear in any acute distress HEENT:. Atraumatic, normocephalic. Eyes nonicteric. Trachea is midline. Mucous membranes appear somewhat dry. CARDIOVASCULAR:. Normal S1, S2, regular rate and rhythm. No clicks, rubs or murmurs. LUNGS:. Clear vesicular breath sounds bilaterally with good respiratory effort. No wheezes, rhonchi or rales. ABDOMEN:. Soft, nondistended, mild tenderness in the lower right quadrant. No rebound tenderness or guarding .There are normoactive bowel sounds throughout. MUSCULOSKELETAL: 5 out of 5 muscle strength testing in upper and lower extremities bilaterally. EXTREMITIES: No edema. Full and equal pulses in bilateral upper and lower extremities. NEUROLOGICAL: No Focal neurological deficits. PSYCHIATRIC: Mood and affect appear appropriate LABORATORY DATA: See below. IMAGING: ABDOMINAL SERIES: AP and upright views of the abdomen and pelvis demonstrate mild diffuse extension of bowel with air fluid levels on the upright view. Findings may represent ileus versus some degree of obstruction. There are metallic clips in the upper abdomen. Tiny phleboliths are seen in the pelvis. There is mild curvature of the spine. An accompanying view of the chest demonstrates no acute infiltrate. Heart is normal in size and the mediastinal silhouette is unremarkable. IMPRESSION: No free air. Mild scattered bowel distention with air fluid levels on the upright view may represent a generalized ileus versus some degree of obstruction. Electronically Signed by Heriberto Jones MD 06/24/2019 06:24 P PROCEDURE INFORMATION: Exam: CT Abdomen And Pelvis With Contrast Exam date and time: 06/24/2019 5:46 PM Age: 53 years old Clinical indication: Abdominal pain; Generalized; Additional info: Severe abdominal pain TECHNIQUE: Imaging protocol: Computed tomography of the abdomen and pelvis with intravenous contrast. Radiation optimization: All CT scans at this facility use at least one of these dose optimization techniques: automated exposure control; mA and/or kV adjustment per patient size (includes targeted exams where dose is matched to clinical indication); or iterative reconstruction. Contrast material: ISOVUE 370; Contrast volume: 100 ml; Contrast route: IV; COMPARISON: CT ABD/PEL W/IV CONTRAST ONLY 06/25/2018 10:29 PM FINDINGS: Lungs: No suspicious mass or airspace process in the visualized lung bases. Mediastinum: Hiatal hernia measuring 4 cm is present. Liver: Liver demonstrates left lobe hepatic dome bilobed cyst measuring 14 mm with simple fluid density, and a posterior left lobe cyst measuring 6 mm. Gallbladder and bile ducts: Gallbladder is surgically absent. Pancreas: Pancreas appears normal. No focal mass or peripancreatic inflammation. Spleen: Spleen appears homogeneous without focal mass. Adrenals: Adrenal glands are normal in appearance. Kidneys and ureters: Kidneys appear normal, with no stone, solid mass or hydronephrosis. Stomach and bowel: No evidence of small bowel obstruction. Multiple fluid-filled loops of nondilated bowel with enhancing mucosa are present. Moderate pattern of colonic stool is present. Appendix: Appendix is not seen. No RLQ inflammation to suggest appendicitis. Intraperitoneal space: No pneumoperitoneum. Vasculature: Main portal and splenic veins enhance normally. No aortic aneurysm. Lymph nodes: No enlarged lymph nodes. Bladder: Urinary bladder appears normal. . Reproductive: No overt enlargement of the uterus or ovaries. Bones/joints: Bony structures show no acute fracture or destructive process. IMPRESSION: 1. Mildly dilated small bowel and colon which is fluid-filled to the distal descending portion with mild increase in mucosal enhancement. The pattern is nonobstructive and suggests probable inflammatory or infectious enteritis. 2. Left lobe hepatic low-density lesions most likely representing cysts or hemangiomas. These were present on prior CT from June 2017 and are unchanged and therefore benign. Electronically signed by: Jake Victoria On 06/24/2019 17:58:33 PM MICROBIOLOGY: Please see below. ASSESSMENT: Patient is a 53-year-old female who presented to [facility] emergency department with complaint of diffuse intractable abdominal pain, nausea, vomiting. Patient is vitally stable presentation with no signs of small bowel obstruction likely have Crohn's flare versus acute gastroenteritis . PLAN: 1. Intractable abdominal pain, likely secondary to acute viral gastroenteritis versus Crohn's flare -Abdominal pelvis CT demonstrating likely inflammatory versus infectious c olitis. Patient is a history of Crohn's disease. She is currently on Stelara and 20 mg of prednisone daily. She states that she has not had any diarrhea and denies any bloody diarrhea as well. She denies nausea, nausea, vomiting, abdominal pain. Her daughter has had symptoms similar symptoms yesterday with nausea, vomiting and abdominal pain. -Case was discussed with surgery (Dr. Fischer) and emergency department provider who indicated no need for surgical intervention. On-call gastrologist (Dr. Mcnally) was contacted with recommendations to obtain GI panel, as patient's presentation appears infectious rather than inflammatory. -Patient's pain is likely secondary to infectious etiology. CRP and ESR not elevated, making Crohn's colitis unlikely -GI panel is currently pending -Continue IV fluids -Morphine when necessary for pain management -Zofran IV when necessary for nausea\Vomiting -Will continue prednisone 20 mg daily at bedtime 2. History of Crohn's colitis -Patient's history of Crohn's colitis does not appear to Be in an acute flare as ESR and CRP Are not elevated -Continue prednisone 20 mg daily at bedtime -Continue Bentyl 20 mg 3 times a day when necessary for cramps -Continue hyoscyamine 0.125 4 times a day when necessary -Patient is on 20 mg of prednisone daily. However, she is not on any PCP prophylaxis. This should be addressed by her primary care physician in the future 3. History of celiac disease -Gluten-free diet 4. Allergic asthma -Currently stable. Continue home inhalers. Will continue Singulair 10 mg daily at bedtime 5. DVT prophylaxis -Lovenox subcutaneous Vital Signs Vital Signs Date Time Temp Pulse Resp B/P (MAP) Pulse Ox O2 Delivery O2 Flow Rate FiO2 06/24/19 18:23 97.8 110 16 116/76 96 Room Air Laboratory Data Labs 24H Laboratory Tests 2 06/24/19 16:50: Immature Granulocyte % (Auto) 0.5, Neutrophils (%) (Auto) 79.9H, Lymphocytes (%) (Auto) 13.3L, Monocytes (%) (Auto) 4.3, Eosinophils (%) (Auto) 1.5, Basophils (%) (Auto) 0.5, Neutrophils # (Auto) 10.3H, Lymphocytes # (Auto) 1.7, Monocytes # (Auto) 0.6, Eosinophils # (Auto) 0.2, Basophils # (Auto) 0.1, Nucleated Red Blood Cells % (auto) 0.0, Erythrocyte Sedimentation Rate 2, Prothrombin Time 12.1, Prothromb Time International Ratio 0.92, Activated Partial Thromboplast Time 20.0L, Lactic Acid Level 1.7, Total Bilirubin 0.4, Direct Bilirubin < 0.1, Aspartate Amino Transf (AST/SGOT) 17, Alanine Aminotransferase (ALT/SGPT) 42, Alkaline Phosphatase 91, Total Creatine Kinase 69, Creatine Kinase MB 1.8, Creatine Kinase MB Relative Index 2.61, Troponin I < 0.02, C-Reactive Protein, Quantitative < 0.30, Total Protein 7.3, Albumin 3.9, Albumin/Globulin Ratio 1.15, Lipase 103, Ethyl Alcohol Level < 0.003 06/24/19 16:54: POC Glucose (Misc Panel) 129H, POC Sodium (Misc Panel) 142, POC Potassium (Misc Panel) 3.5, POC Chloride (Misc Panel) 103, POC Total CO2 (Misc Panel) 27.0, POC Blood Urea Nitrogen (Misc Panel 22, POC Ionized Calcium (Misc Panel) 4.7, POC Creatinine (Misc Panel) 1.1, POC Hematocrit (Misc Panel) 47.0 CBC/BMP Laboratory Tests 3/31/20 16:50 Home Medications Scheduled Amitriptyline HCl (Amitriptyline HCl) 50 Mg Tablet, 50 MG PO QHS Calcium Carbonate/Vitamin D3 (Calcium 500-Vit D3 200 Tablet) 1 Each Tablet, 2 TAB PO DAILY Cholecalciferol (Vitamin D3) (Vitamin D3) 1,000 Unit Tablet, 2,000 UNITS PO DAILY Cyanocobalamin (Cyanocobalamin Injection) 1,000 Mcg/1 Ml Inj, 1,000 MCG IM MTHLY TAKES IN BEGINNING OF EACH MONTH, NO SPECIFIC DAY: LAST TOOK IN MAY Duloxetine Hcl (Duloxetine HCl) 60 Mg Cap, 120 MG PO QHS Folic Acid (Folic Acid) 1 Mg Tab, 1 MG PO DAILY Montelukast Sodium (Singulair) 10 Mg Tab, 10 MG PO QHS Prednisone (Prednisone) 10 Mg Tab, 20 MG PO QHS Sucralfate (Sucralfate) 1 Gm/10 Ml Oral.susp, 10 ML PO QID Sulfasalazine (Sulfasalazine) 500 Mg Tab, 1,000 MG PO TID Ustekinumab (Stelara) 90 Mg/1 Ml Syringe, 1 ML SC Q8WK INJECT EVERY 8 WEEKS Scheduled PRN Albuterol Sulfate (Proair Hfa) 8.5 Gm Hfa.aer.ad, 2 PUFF INH Q4H PRN for SOB/WHEEZING Calcium Carbonate (Tums) 200 Mg Tab.chew, 2 TAB PO Q4H PRN for ABDOMINAL PAIN Diazepam (Diazepam) 2 Mg Tab, 2 MG PO QID PRN for VERTIGO/DIZZINESS Dicyclomine HCl (Dicyclomine HCl) 10 Mg Cap, 20 MG PO TID PRN for CRAMPS Hyoscyamine Sulfate (Levsin-Sl) 0.125 Mg Sub, 0.125 MG SL QID PRN for CRAMPS Ondansetron HCl (Zofran) 4 Mg Tab, 4 MG PO Q8H PRN for NAUSEA OR VOMITING Scopolamine (Transderm-Scop) 1 Each Patch.td.3, 1 PATCH TOP Q3RD PRN for NAUSEA BEHIND LEFT EAR Allergies Coded Allergies: Milk Containing Products (Verified Allergy, Unknown, 06/25/18) Penicillins (Verified Allergy, Unknown, 06/25/18) Sulfa (Sulfonamide Antibiotics) (Verified Allergy, Unknown, 06/25/18) codeine (Verified Allergy, Unknown, 06/25/18) erythromycin base (Verified Allergy, Unknown, 06/25/18) gluten (Verified Allergy, Unknown, 06/25/18) A-FIB/CHADSVASC A-FIB History Current/History of A-Fib/PAF?: No GME ATTESTATION GME ATTESTATION My faculty preceptor for this patient encounter was physically present during the encounter and was fully available. All aspects of the patient interview, examination, medical decision making process, and medical care plan development were reviewed and approved by the faculty preceptor. The faculty preceptor is aware and concurs with the plan as stated in the body of this note and will attest to such by his/her cosignature. ATTENDING NOTE I, Jeannine Gonzalez, have independently examined this patient and performed my own physical exam, as well as reviewed the documentation and edited where necessary. I have discussed in detail with the resident / student the findings and plan of treatment as documented by the resident / student and edited their note. I agree with their findings and treatment plan and have edited their documentation. I will continue to follow the patient during this hospital stay. MARKUS MORSE DO Jun 24, 2019 20:54 JENANINE GONZALEZ MD Jun 24, 2019 22:12
[2019-06-24] MEDS ORDERED: predniSONE 10 MG TAB PO SCH (21:00)
[2019-06-24] MEDS: NS 1,000 ML IV SCH (22:23)
[2019-06-24] MEDS: ENOXAPARIN 40 MG/0.4 ML SYRINGE (J1650) SC SCH (22:24)
[2019-06-24] MEDS: MORPHINE 2 MG/ML 1ML VIAL (J2270) IV PRN (22:25)
[2019-06-24] MEDS: DULoxetine 30 MG CAP (CYMBALTA) PO SCH (22:25)
[2019-06-24] MEDS: SUCRALFATE SUSP 1GM/10ML UD PO SCH (22:25)
[2019-06-24] MEDS: AMITRIPTYLINE 50 MG TAB PO SCH (22:25)
[2019-06-24] MEDS: predniSONE 10 MG TAB PO SCH (22:25)
[2019-06-24] MEDS: MONTELUKAST 10 MG TAB PO SCH (22:25)
[2019-06-24] MEDS: ONDANSETRON 4MG/2ML VIAL (J2405) IV PRN (22:55)
[2019-06-24] MEDS: sulfaSALAzine 500 MG TABEC PO SCH (22:55)
[2019-06-24] MEDS: DICYCLOMINE 10 MG CAP PO PRN (23:38)
--- NOTE | 2019-06-25 01:20 | ECGEPIP ---
[facility] - ED Test Date: 2019-06-24 Pat Name: ALMA PACHECO Department: Room: - Gender: Female Service Coordinator Elderly Facility: [facility] : 1965 Requested By: SHAYY Roberts PA-C Order Number: [id number] Reading MD: Vern Kelley Measurements Intervals [place] Rate: 85 P: 41 [place]: 121 QRS: 12 QRSD: 110 T: 7 QT: 353 QTc: 421 Interpretive Statements SINUS RHYTHM POSSIBLE INCOMPLETE RIGHT BUNDLE BRANCH BLOCK NONSPECIFIC T WAVE ABNORMALITIES SIMILAR TO 06/25/18 Electronically Signed on 06-25-2019 1:19:51 EDT by Vern Kelley
[2019-06-25] MEDS: MORPHINE 2 MG/ML 1ML VIAL (J2270) IV PRN ×4 (02:28→16:11)
[2019-06-25 06:00] VITALS: BP 110/60
[2019-06-25 06:02] LABS: MEAN CORPUSCULAR HEMOGLOBIN 30.7 pg (27.0-33.0); MEAN CORPUSCULAR HGB CONC 33.3 g/dl (32.0-36.5); MEAN CORPUSCULAR VOLUME 92.4 fl (80.0-96.0); PLATELET COUNT, AUTOMATED 233 10^3/uL (150-450); RED BLOOD COUNT 4.33 10^6/uL (4.00-5.40); WHITE BLOOD COUNT 5.8 10^3/uL (4.0-10.0)
[2019-06-25 06:08] LABS: HEMOGLOBIN 13.3 g/dl (12.0-15.5)
[2019-06-25] MEDS: ONDANSETRON 4MG/2ML VIAL (J2405) IV PRN (06:41)
[2019-06-25 06:48] LABS: BLOOD UREA NITROGEN 24 MG/DL (7-18); CALCIUM LEVEL 7.3 MG/DL (8.5-10.1); CARBON DIOXIDE LEVEL 24 MEQ/L (21-32); CHLORIDE LEVEL 113 MEQ/L (98-107); CREATININE FOR GFR 0.91 MG/DL (0.55-1.30); GLOMERULAR FILTRATION RATE > 60.0 (>51); GLUCOSE, FASTING 120 MG/DL (70-100); POTASSIUM SERUM 3.6 MEQ/L (3.5-5.1); SODIUM LEVEL 142 MEQ/L (136-145)
[2019-06-25] MEDS: NS 1,000 ML IV SCH ×2 (07:00→16:15)
[2019-06-25] MEDS: HYOSCYAMINE SULFATE 0.125 MG SUBL TABLET SL PRN ×2 (08:15→17:30)
[2019-06-25] MEDS: sulfaSALAzine 500 MG TABEC PO SCH ×3 (08:15→21:12)
[2019-06-25] MEDS: FOLIC ACID 1 MG TAB PO SCH (08:16)
[2019-06-25] MEDS: SUCRALFATE SUSP 1GM/10ML UD PO SCH ×4 (08:16→21:11)
[2019-06-25] MEDS: VITAMIN D 1,000 INTERNATIONAL UNITS TABLET PO SCH (08:16)
[2019-06-25] MEDS: DICYCLOMINE 10 MG CAP PO PRN ×2 (08:16→17:30)
[2019-06-25] MEDS ORDERED: predniSONE 10 MG TAB PO SCH (09:00)
[2019-06-25] MEDS ORDERED: CALCIUM GLUCONATE 1,000 MG in D5W MINI-BAG PLUS 100 ML IV ONE ×2 (09:00→18:15)
[2019-06-25 14:00] VITALS: BP 110/62
--- NOTE | 2019-06-25 14:03 | IPNPDOC ---
Date Seen The patient was seen on 06/25/19. Progress Note SUBJECTIVE: Patient seen and examined at bedside. Patient still with abdominal cramps, diarrhea and some nausea. Denies other symptoms of fever, chills, chest pain, difficulty breathing, vomiting, dysuria, leg pain or swelling. OBJECTIVE PHYSICAL EXAMINATION: VITAL SIGNS: Please see below. GENERAL: Ambulating around room in no acute distress CARDIOVASCULAR: RRR, normal S1/2, + murmur, no or GI RESPIRATORY: CTA B/L, W/R/R ABDOMINAL: Soft, mild left lower and right lower quadrant tenderness to palpation, no distention EXTREMITIES: Intact distal pulses, no edema SKIN: No rashes skin breakdown NEUROLOGICAL: No focal deficit PSYCHOLOGICAL: AAO 3, appropriate LABORATORY DATA, IMAGING STUDIES, MICROBIOLOGY: Please see below. ASSESSMENT AND PLAN: Patient is a 53-year-old female with history of celiac disease, Crohn's disease, autoimmune arthropathy, osteoporosis, prior DVT who presented to [facility] emergency department with complaint of diffuse intractable abdominal pain, nausea, vomiting. Patient remains stable and was found to have norovirus as etiology for nausea, vomiting, diarrhea. Crohn's flare seems less likely in that setting. As norovirus is self-limited will continue supportive care with plan to discharge once patient tolerating by mouth intake. PROBLEMS: #Intractable abdominal pain secondary to norovirus -Abdominal pelvis CT demonstrating likely inflammatory versus infectious colitis. Patient is a history of Crohn's disease. She is currently on Stelara and 20 mg of prednisone daily. She states that she has not had any diarrhea and denies any bloody diarrhea as well. Her daughter has had symptoms similar symptoms yesterday with nausea, vomiting and abdominal pain. -Case was discussed with surgery (Dr. Fischer) and emergency department prov ider who indicated no need for surgical intervention. On-call gastrologist (Dr. Mcnally) was contacted with recommendations to obtain GI panel, as patient's presentation appears infectious rather than inflammatory. -Patient's pain is likely secondary to infectious etiology. CRP and ESR not elevated, making Crohn's colitis unlikely -GI panel positive for norovirus -Continue IV fluids -Morphine when necessary for pain management -Zofran IV when necessary for nausea\Vomiting -continue prednisone 20 mg daily at bedtime #Hypocalcemia Status post repletion of calcium Will check p.m. BMP for calcium Replete calcium as necessary #History of Crohn's colitis -Patient's history of Crohn's colitis does not appear to be in an acute flare as ESR and CRP Are not elevated -Continue prednisone 20 mg daily at bedtime -Continue Bentyl 20 mg 3 times a day when necessary for cramps -Continue hyoscyamine 0.125 4 times a day when necessary -Patient is on 20 mg of prednisone daily. However, she is not on any PCP prophylaxis. This should be addressed by her primary care physician in the ture #History of celiac disease -Gluten-free diet #Allergic asthma -Currently stable. Continue home inhalers. Will continue Singulair 10 mg daily at bedtime #DVT prophylaxis -Lovenox subcutaneous DISPOSITION: Discharged likely next 24-48 hours. Will await symptomatic improvement and patient tolerating by mouth intake VS, I&O, 24H, Fishbone Vital Signs/I&O Vital Signs Date Time Temp Pulse Resp B/P (MAP) Pulse Ox O2 Delivery O2 Flow Rate FiO2 06/25/19 12:44 18 06/25/19 12:34 Room Air 06/25/19 06:00 98.8 96 110/60 (77) 94 I&O- Last 24 Hours up to 6 AM 06/25/19 06:00 Intake Total 2090 ml Output Total 0 ml Balance 2090 ml Laboratory Data 24H LABS Laboratory Tests 2 06/24/19 16:50: Immature Granulocyte % (Auto) 0.5, Neutrophils (%) (Auto) 79.9H, Lymphocytes (%) (Auto) 13.3L, Monocytes (%) (Auto) 4.3, Eosinophils (%) (Auto) 1.5, Basophils (%) (Auto) 0.5, Neutrophils # (Auto) 10.3H, Lymphocytes # (Auto) 1.7, Monocytes # (Auto) 0.6, Eosinophils # (Auto) 0.2, Basophils # (Auto) 0.1, Nucleated Red Blood Cells % (auto) 0.0, Erythrocyte Sedimentation Rate 2, Prothrombin Time 12.1, Prothromb Time International Ratio 0.92, Activated Partial Thromboplast Time 20.0L, Urine Color YELLOW, Urine Appearance CLEAR, Urine pH 5.0, Urine Specific [place] >1.060H, Urine Protein NEGATIVE, Urine Glucose (UA) NEGATIVE, Urine Ketones NEGATIVE, Urine Blood NEGATIVE, Urine Nitrite NEGATIVE, Urine Bilirubin NEGATIVE, Urine Urobilinogen 0.2, Urine Leukocyte Esterase 2+H, Urine WBC (Auto) 5H, Urine RBC (Auto) 3, Urine Hyaline Casts (Auto) 0, Urine Bacteria (Auto) NEGATIVE, Urine Squamous Epithelial Cells 2, Urine Mucus (Auto) SMALL, Urine Sperm (Auto) , Lactic Acid Level 1.7, Total Bilirubin 0.4, Direct Bilirubin < 0.1, Aspartate Amino Transf (AST/SGOT) 17, Alanine Aminotransferase (ALT/SGPT) 42, Alkaline Phosphatase 91, Total Creatine Kinase 69, Creatine Kinase MB 1.8, Creatine Kinase MB Relative Index 2.61, Troponin I < 0.02, C- Reactive Protein, Quantitative < 0.30, Total Protein 7.3, Albumin 3.9, Albumin/Globulin Ratio 1.15, Lipase 103, Ethyl Alcohol Level < 0.003 06/24/19 16:54: POC Glucose (Misc Panel) 129H, POC Sodium (Misc Panel) 142, POC Potassium (Misc Panel) 3.5, POC Chloride (Misc Panel) 103, POC Total CO2 (Misc Panel) 27.0, POC Blood Urea Nitrogen (Misc Panel 22, POC Ionized Calcium (Misc Panel) 4.7, POC Creatinine (Misc Panel) 1.1, POC Hematocrit (Misc Panel) 47.0 06/25/19 05:44: Nucleated Red Blood Cells % (auto) 0.0, Anion Gap 5L, Glomerular Filtration Rate > 60.0, Calcium Level 7.3L 06/25/19 11:54: Methicillin-Resist S.aureus DNA PCR DETECTEDH CBC/BMP Laboratory Tests 06/24/19 16:50 06/25/19 05:44 Microbiology Microbiology 06/24/19 Gastrointestinal Tract Panel (PCR) - Final, Complete Norovirus 06/24/19 Urine Culture - Final, Complete DELBERT OSEI MD Jun 25, 2019 14:03
[2019-06-25 17:52] LABS: BLOOD UREA NITROGEN 15 MG/DL (7-18); CALCIUM LEVEL 7.5 MG/DL (8.5-10.1); CARBON DIOXIDE LEVEL 25 MEQ/L (21-32); CHLORIDE LEVEL 113 MEQ/L (98-107); CREATININE FOR GFR 0.78 MG/DL (0.55-1.30); GLOMERULAR FILTRATION RATE > 60.0 (>51); GLUCOSE, FASTING 87 MG/DL (70-100); POTASSIUM SERUM 3.5 MEQ/L (3.5-5.1); SODIUM LEVEL 141 MEQ/L (136-145)
[2019-06-25] MEDS: MONTELUKAST 10 MG TAB PO SCH (21:11)
[2019-06-25] MEDS: ENOXAPARIN 40 MG/0.4 ML SYRINGE (J1650) SC SCH (21:11)
[2019-06-25] MEDS: AMITRIPTYLINE 50 MG TAB PO SCH (21:11)
[2019-06-25] MEDS: DULoxetine 30 MG CAP (CYMBALTA) PO SCH (21:12)
[2019-06-25] MEDS: predniSONE 10 MG TAB PO SCH (21:12)
[2019-06-25] MEDS: ACETAMINOPHEN TAB 650MG DOSE (2X325MG) PO PRN (21:14)
[2019-06-25 22:00] VITALS: BP 109/63
[2019-06-25] MEDS ORDERED: SODIUM CHLORIDE NASAL 0.65% SPRAY BTL (OCEAN) PRN (23:15)
[2019-06-26] MEDS: HYOSCYAMINE SULFATE 0.125 MG SUBL TABLET SL PRN ×2 (00:08→08:10)
[2019-06-26] MEDS: DICYCLOMINE 10 MG CAP PO PRN ×2 (02:16→12:19)
[2019-06-26] MEDS: NS 1,000 ML IV SCH (02:16)
[2019-06-26] MEDS: ACETAMINOPHEN TAB 650MG DOSE (2X325MG) PO PRN ×2 (04:32→11:48)
[2019-06-26 05:47] LABS: HEMATOCRIT 37.5 % (36.0-47.0); HEMOGLOBIN 12.2 g/dl (12.0-15.5); MEAN CORPUSCULAR HEMOGLOBIN 30.1 pg (27.0-33.0); MEAN CORPUSCULAR HGB CONC 32.5 g/dl (32.0-36.5); MEAN CORPUSCULAR VOLUME 92.6 fl (80.0-96.0); PLATELET COUNT, AUTOMATED 192 10^3/uL (150-450); RED BLOOD COUNT 4.05 10^6/uL (4.00-5.40); WHITE BLOOD COUNT 4.3 10^3/uL (4.0-10.0)
[2019-06-26 06:00] VITALS: BP 106/60
[2019-06-26 06:12] LABS: BLOOD UREA NITROGEN 9 MG/DL (7-18); CALCIUM LEVEL 7.8 MG/DL (8.5-10.1); CARBON DIOXIDE LEVEL 26 MEQ/L (21-32); CHLORIDE LEVEL 114 MEQ/L (98-107); CREATININE FOR GFR 0.69 MG/DL (0.55-1.30); GLOMERULAR FILTRATION RATE > 60.0 (>51); GLUCOSE, FASTING 114 MG/DL (70-100); POTASSIUM SERUM 3.5 MEQ/L (3.5-5.1); SODIUM LEVEL 145 MEQ/L (136-145)
[2019-06-26] MEDS ORDERED: CALCIUM GLUCONATE 1,000 MG in D5W MINI-BAG PLUS 100 ML IV ONE (08:00)
[2019-06-26] MEDS: ONDANSETRON 4MG/2ML VIAL (J2405) IV PRN (08:10)
[2019-06-26] MEDS: VITAMIN D 1,000 INTERNATIONAL UNITS TABLET PO SCH (08:10)
[2019-06-26] MEDS: SUCRALFATE SUSP 1GM/10ML UD PO SCH ×2 (08:10→11:47)
[2019-06-26] MEDS: sulfaSALAzine 500 MG TABEC PO SCH (08:11)
[2019-06-26] MEDS: FOLIC ACID 1 MG TAB PO SCH (08:11)
--- NOTE | 2019-06-26 10:27 | DS.PDOC ---
Discharge Summary General Date of Admission Jun 24, 2019 at 16:21 Date of Discharge 06/26/19 Attending Physician: DELBERT OSEI MD Discharge Summary PROCEDURES PERFORMED DURING STAY: None. ADMITTING DIAGNOSES: 1. Diarrhea, abdominal pain, N/V DISCHARGE DIAGNOSES: 1. Gastroenteritis due to Norovirus infection 2. Celiac disease 3. History of Crohn's disease on chronic prednisone and Stelara 4. Autoimmune arthropathy 5. Osteopenia\osteoporosis 6. History of left arm DVT secondary to line placement. COMPLICATIONS/CHIEF COMPLAINT: Enteritis Intractable Abdominal Pain. HISTORY OF PRESENT ILLNESS: Patient is a 53-year-old female who presented to [facility] emergency department with complaint of abdominal pain. She states that on Sunday she started developing some abdominal pain that was manageable. She states that her abdominal pain had progressed till today when she developed nausea and vomiting. Since that her daughter had experienced some vomiting yesterday as well. She denies any fevers or chills. She has any diarrhea. She denies any bloody stools. She admits to a history of Crohn's disease and celiac however, states that after starting Stelara she has not had much if any diarrhea/Crohn's flares. She states that she has had bowel movements and is passing gas. Her last bowel movement was this afternoon. She states that she has had some intractable nausea, vomiting, abdominal pain throughout today. In the emergency department, the patient was found to be vitally stable. . She had mild leukocytosis 12.9. There is no elevation of her ESR, CRP. Her metabolic panel was otherwise unremarkable. Abdominal x-ray was obtained in the Emergency Department which revealed no free air, mild scattered bowel distention with air- fluid levels on the upright view representing generalized ileus versus some degree of obstruction. CT of the abdomen and pelvis was obtained which demonstrated mildly dilated small bowel and colon with fluid filled to the d istal descending portion with mild increase in mucosal enhancement suggesting possible inflammatory or infectious enteritis. Patient was given fentanyl for pain relief in the emergency department. Hospitalist service was consulted for further evaluation and management HOSPITAL COURSE: Pt thought to have enteritis. Patient placed on clears and GI infectious panel sent. Patient's pain, nausea, vomiting and diarrhea started to improve with supportive care. GI panel came back positive for norovirus. Therefore continued supportive care with fluids, Zofran, pain control. Patient's nausea, vomiting, diarrhea continued to improve. Patient seen and examined on day of discharge and doing well. Patient tolerated GI diet and is able to tolerate clear liquids. Patient feeling much better and denies any fevers, chills, chest pain, difficulty breathing, abdominal pain, dysuria, leg pain or swelling. Nausea, vomiting, seems to have resolved and diarrhea is much improved. Plan to discharge patient home with follow-up with PMD in 1 week to ensure resolution of symptoms. Plan discussed with patient and she is in agreement. DISCHARGE MEDICATIONS: Please see below. ALLERGIES: Please see below. PHYSICAL EXAMINATION ON DISCHARGE: VITAL SIGNS: Please see below. GENERAL: Laying in bed in no acute distress, pleasant on interview CARDIOVASCULAR: RRR, normal S1/2, + murmur, no rg RESPIRATORY: CTA B/L, W/R/R ABDOMINAL: Soft, nontender to palpation, no distention EXTREMITIES: Intact distal pulses, no edema SKIN: No rashes skin breakdown NEUROLOGICAL: No focal deficit PSYCHOLOGICAL: AAO 3, appropriate LABORATORY DATA: Please see below. IMAGING: CT ab/pelvis: 1. Mildly dilated small bowel and colon which is fluid-filled to the distal descending portion with mild increase in mucosal enhancement. The pattern is nonobstructive and suggests probable inflammatory or infectious enteritis. 2. Left lobe hepatic low-density lesions most likely representing cysts or hemangiomas. These were present on prior CT from June 2017 and are unchanged and therefore benign. PROGNOSIS: good ACTIVITY: As tolerated. DIET: GI soft for 1-2days and then advance as tolerated DISCHARGE PLAN: Plan to discharge home with follow up with primary care physician DISCHARGE INSTRUCTIONS: 1. Please follow-up with your primary care physician ITEMS TO FOLLOWUP ON ON OUTPATIENT: 1. Please ensure resolution of symptoms DISCHARGE CONDITION: Stable. TIME SPENT ON DISCHARGE: 31 minutes. Vital Signs/I&Os Vital Signs Date Time Temp Pulse Resp B/P (MAP) Pulse Ox O2 Delivery O2 Flow Rate FiO2 06/26/19 06:00 97.5 66 16 106/60 (75) 95 Room Air I&O- Last 24 Hours up to 6 AM 06/26/19 06:00 Intake Total 3730 ml Output Total 550 ml Balance 3180 ml Laboratory Data Labs 24H Laboratory Tests 2 06/25/19 11:54: Methicillin-Resist S.aureus DNA PCR DETECTEDH 06/25/19 17:08: Anion Gap 3L, Glomerular Filtration Rate > 60.0, Calcium Level 7.5L 06/26/19 05:24: Anion Gap 5L, Glomerular Filtration Rate > 60.0, Calcium Level 7.8L, Nucleated Red Blood Cells % (auto) 0.0 CBC/BMP Laboratory Tests 06/25/19 17:08 06/26/19 05:24 Microbiology Microbiology 06/24/19 Gastrointestinal Tract Panel (PCR) - Final, Complete Norovirus 06/24/19 Urine Culture - Final, Complete Discharge Medications Scheduled Amitriptyline HCl (Amitriptyline HCl) 50 Mg Tablet, 50 MG PO QHS, (Reported) Calcium Carbonate/Vitamin D3 (Calcium 500-Vit D3 200 Tablet) 1 Each Tablet, 2 TAB PO DAILY, (Reported) Cholecalciferol (Vitamin D3) (Vitamin D3) 1,000 Unit Tablet, 2,000 UNITS PO DAILY, (Reported) Cyanocobalamin (Cyanocobalamin Injection) 1,000 Mcg/1 Ml Inj, 1,000 MCG IM MTHLY, (Reported) TAKES IN BEGINNING OF EACH MONTH, NO SPECIFIC DAY: LAST TOOK IN MAY Duloxetine Hcl (Duloxetine HCl) 60 Mg Cap, 120 MG PO QHS, (Reported) Folic Acid (Folic Acid) 1 Mg Tab, 1 MG PO DAILY, (Reported) Montelukast Sodium (Singulair) 10 Mg Tab, 10 MG PO QHS, (Reported) Prednisone (Prednisone) 10 Mg Tab, 20 MG PO QHS, (Reported) Sucralfate (Sucralfate) 1 Gm/10 Ml Oral.susp, 10 ML PO QID, (Reported) Sulfasalazine (Sulfasalazine) 500 Mg Tab, 1,000 MG PO TID, (Reported) Ustekinumab (Stelara) 90 Mg/1 Ml Syringe, 1 ML SC Q8WK, (Reported) INJECT EVERY 8 WEEKS Scheduled PRN Albuterol Sulfate (Proair Hfa) 8.5 Gm Hfa.aer.ad, 2 PUFF INH Q4H PRN for SOB/WHEEZING, (Reported) Calcium Carbonate (Tums) 200 Mg Tab.chew, 2 TAB PO Q4H PRN for ABDOMINAL PAIN, (Reported) Diazepam (Diazepam) 2 Mg Tab, 2 MG PO QID PRN for VERTIGO/DIZZINESS, (Reported) Dicyclomine HCl (Dicyclomine HCl) 10 Mg Cap, 20 MG PO TID PRN for CRAMPS, (Reported) Hyoscyamine Sulfate (Levsin-Sl) 0.125 Mg Sub, 0.125 MG SL QID PRN for CRAMPS, (Reported) Ondansetron HCl (Zofran) 4 Mg Tab, 4 MG PO Q8H PRN for NAUSEA OR VOMITING, (Reported) Scopolamine (Transderm-Scop) 1 Each Patch.td.3, 1 PATCH TOP Q3RD PRN for NAUSEA, (Reported) BEHIND LEFT EAR Allergies Coded Allergies: Milk Containing Products (Verified Allergy, Unknown, 06/25/18) Penicillins (Verified Allergy, Unknown, 06/25/18) Sulfa (Sulfonamide Antibiotics) (Verified Allergy, Unknown, 06/25/18) codeine (Verified Allergy, Unknown, 06/25/18) erythromycin base (Verified Allergy, Unknown, 06/25/18) gluten (Verified Allergy, Unknown, 06/25/18) DELBERT OSEI MD Jun 26, 2019 10:27
[2019-06-26 14:00] VITALS: BP 124/71
[2019-06-26] MEDS ORDERED: CALCIUM CARBONATE 500 MG CHEW U/D PO PRN (21:00)
== END 2019-06-26 13:00 | disposition home or self-care (01) ==
LOC: EDBD 16:20 → M ED 16:20 → M ED INP 16:21 → ENRESERV 20:34 → M MSPAV 22:08
PROVIDERS: ADMIT Internal Medicine; ATTEND Internal Medicine
DX: A08.11 Acute gastroenteropathy due to Norwalk agent (principal); K90.0 Celiac disease; K50.90 Crohn's disease, unspecified, without complications; Z79.52 Long term (current) use of systemic steroids; M81.0 Age-related osteoporosis without current pathological fracture; Z86.718 Personal history of other venous thrombosis and embolism; M06.9 Rheumatoid arthritis, unspecified; Z79.51 Long term (current) use of inhaled steroids; Z79.899 Other long term (current) drug therapy; Z91.011 Allergy to milk products; Z88.2 Allergy status to sulfonamides; Z88.5 Allergy status to narcotic agent; Z88.8 Allergy status to other drugs, medicaments and biological substances; J45.901 Unspecified asthma with (acute) exacerbation
CPT/HCPCS: 36415; 74021; 74177; 80047; 80048; 80076; 81001; 82550; 82553; 83605; 83690; 84484; 85025; 85027; 85610; 85652; 85730; 86140; 87086; 87507; 87641; 93005; 93041; 94760; 96361; 96365; 96366; 96372; 96375; 96376; 99285; G0378; G0480; J0610; J1650; J1885; J2270; J2405; J3010; Q9967

== ENCOUNTER 2019-11-05 17:45 | Emergency (ER) | payer MEDICARE, BC ==
[~2019-11-05 17:45] MED LIST changes: +CYCL-707 PO; -CYCL10TA PO; +D31000TA2 PO; +OYST500T91 PO; +PROAAER10 INH; +SCOP1PAT2 TOP; +STEL90IN SC; +SUCR1ORA2 PO
--- NOTE | 2019-12-05 13:18 | ECGEPIP ---
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
[2019-12-08 14:25] LABS: HEMATOCRIT 46.1 % (36.0-47.0); HEMOGLOBIN 15.6 g/dl (12.0-15.5); LYMPH % 40.7 % (24.0-44.0); MEAN CORPUSCULAR HEMOGLOBIN 30.9 pg (27.0-33.0); MEAN CORPUSCULAR HGB CONC 33.8 g/dl (32.0-36.5); MEAN CORPUSCULAR VOLUME 91.3 fl (80.0-96.0); NEUTROPHILS % 47.2 % (36.0-66.0); PLATELET COUNT, AUTOMATED 314 10^3/uL (150-450); RED BLOOD COUNT 5.05 10^6/uL (4.00-5.40); WHITE BLOOD COUNT 9.6 10^3/uL (4.0-10.0)
[2019-12-08 14:26] LABS: BASO # 0.1 10^3/uL (0.0-0.2); BASO % 0.7 % (0.0-1.0); EOS # 0.1 10^3/uL (0.0-0.5); EOS % 1.2 % (0.0-3.0); LYMPH # 3.9 10^3/uL (1.5-5.0); MONO # 0.9 10^3/uL (0.0-0.8); MONO % 9.4 % (0.0-5.0); NEUTROPHILS # 4.5 10^3/uL (1.5-8.5)
[2019-12-13 09:24] LABS: ALBUMIN 3.7 GM/DL (3.2-5.2); ALT/SGPT 36 U/L (12-78); BILIRUBIN,DIRECT 0.1 MG/DL (0.0-0.2); BILIRUBIN,TOTAL 0.6 MG/DL (0.2-1.0); BLOOD UREA NITROGEN 17 MG/DL (7-18); CALCIUM LEVEL 9.4 MG/DL (8.5-10.1); CARBON DIOXIDE LEVEL 30 MEQ/L (21-32); CHLORIDE LEVEL 106 MEQ/L (98-107); CK-MB VALUE MASS < 1.0 NG/ML (<3.6); CPK CREATINE PHOSPHOKINASE 48 U/L (26-192); CREATININE FOR GFR 0.99 MG/DL (0.55-1.30); GLOMERULAR FILTRATION RATE > 60.0 (>51); GLUCOSE, FASTING 86 MG/DL (70-100); LIPASE 80 U/L (73-393); MB/CK RELATIVE INDEX 2.08 (< OR =4); POTASSIUM SERUM 3.7 MEQ/L (3.5-5.1); SODIUM LEVEL 142 MEQ/L (136-145); TOTAL PROTEIN 7.3 GM/DL (6.4-8.2); TROPONIN I < 0.02 NG/ML (< 0.10)
== END 2019-11-05 23:17 | disposition home or self-care (01) ==
LOC: M ED 17:45
DX: R05 Cough (principal); R07.0 Pain in throat; K21.9 Gastro-esophageal reflux disease without esophagitis; K50.919 Crohn's disease, unspecified, with unspecified complications; Z86.73 Personal history of transient ischemic attack (TIA), and cerebral infarction without residual deficits; Z79.899 Other long term (current) drug therapy; Z88.0 Allergy status to penicillin; Z88.2 Allergy status to sulfonamides; Z88.5 Allergy status to narcotic agent
CPT/HCPCS: 71046; 80048; 80076; 82550; 82553; 83690; 84484; 85025; 87081; 93005; 99284; U0002

== ENCOUNTER 2019-11-21 20:55 | Emergency (ER) | payer MEDICARE, BC ==
[~2019-11-21] VITALS: Ht 162.6 cm; Wt 75.6 kg
[2019-11-21] MEDS ORDERED: NS 1,000 ML IV ONE (22:00)
[2019-11-21 22:07] LABS: BASO # 0.1 10^3/uL (0.0-0.2); BASO % 0.5 % (0.0-1.0); EOS # 0.4 10^3/uL (0.0-0.5); EOS % 2.8 % (0.0-3.0); HEMATOCRIT 46.3 % (36.0-47.0); HEMOGLOBIN 15.7 g/dl (12.0-15.5); LYMPH # 2.5 10^3/uL (1.5-5.0); LYMPH % 18.6 % (24.0-44.0); MEAN CORPUSCULAR HEMOGLOBIN 30.8 pg (27.0-33.0); MEAN CORPUSCULAR HGB CONC 33.9 g/dl (32.0-36.5); MONO % 7.8 % (0.0-5.0); NEUTROPHILS # 9.2 10^3/uL (1.5-8.5); NEUTROPHILS % 69.9 % (36.0-66.0); PLATELET COUNT, AUTOMATED 333 10^3/uL (150-450); RED BLOOD COUNT 5.09 10^6/uL (4.00-5.40); WHITE BLOOD COUNT 13.2 10^3/uL (4.0-10.0)
[2019-11-21 22:24] LABS: ALT/SGPT 33 U/L (12-78); BILIRUBIN,DIRECT 0.1 MG/DL (0.0-0.2); BILIRUBIN,TOTAL 0.5 MG/DL (0.2-1.0); BLOOD UREA NITROGEN 18 MG/DL (7-18); CALCIUM LEVEL 9.6 MG/DL (8.5-10.1); CARBON DIOXIDE LEVEL 29 MEQ/L (21-32); CHLORIDE LEVEL 105 MEQ/L (98-107); CK-MB VALUE MASS 1.4 NG/ML (<3.6); CPK CREATINE PHOSPHOKINASE 113 U/L (26-192); CREATININE FOR GFR 1.14 MG/DL (0.55-1.30); GLOMERULAR FILTRATION RATE 52.9 (>51); GLUCOSE, FASTING 129 MG/DL (70-100); LIPASE 98 U/L (73-393); MB/CK RELATIVE INDEX 1.24 (< OR =4); POTASSIUM SERUM 3.6 MEQ/L (3.5-5.1); SODIUM LEVEL 141 MEQ/L (136-145); TOTAL PROTEIN 7.9 GM/DL (6.4-8.2); TROPONIN I < 0.02 NG/ML (< 0.10)
[2019-11-21 22:56] LABS: APPEARANCE, URINE TURBID (CLEAR); BACTERIA, URINE AUTO 1+ (NEGATIVE); BILIRUBIN, URINE AUTO NEGATIVE (NEGATIVE); BLOOD, URINE BLOOD 3+ (NEGATIVE); COLOR, URINE AMBER (YELLOW); GLUCOSE, URINE (UA) AUTO NEGATIVE (NEGATIVE); KETONE, URINE AUTO NEGATIVE (NEGATIVE); LEUKOCYTE ESTERASE, URINE AUTO 3+ (NEGATIVE); MUCUS, URINE SMALL (NEGATIVE); NITRITE, URINE AUTO NEGATIVE (NEGATIVE); PROTEIN, URINE AUTO 2+ mg/dL (NEGATIVE); RBC, URINE AUTO TNTC /HPF (0-3); SQUAMOUS EPITHELIAL CELL UR AU 3 /HPF (0-6); UROBILINOGEN, URINE AUTO 0.2 mg/dL (0.0-2.0); WBC, URINE AUTO TNTC /HPF (0-3)
--- NOTE | 2019-11-21 23:59 | REPVR ---
PROCEDURE INFORMATION: Exam: CT Abdomen And Pelvis Without Contrast Exam date and time: 11/21/2019 11:17 PM Age: 53 years old Clinical indication: Abdominal pain; Localized; Lower; Additional info: Colic/hematuria TECHNIQUE: Imaging protocol: Computed tomography of the abdomen and pelvis without contrast. Radiation optimization: All CT scans at this facility use at least one of these dose optimization techniques: automated exposure control; mA and/or kV adjustment per patient size (includes targeted exams where dose is matched to clinical indication); or iterative reconstruction. COMPARISON: CT ABD/PEL W/IV CONTRAST ONLY 06/24/2019 5:43 PM FINDINGS: Lungs: The imaged portions of the lung bases are clear. The lungs were not fully imaged. Heart: No cardiomegaly. There is a trace amount of fluid in the pericardial sac. Mediastinal space: There is a moderate size sliding hiatal hernia. Liver: There is a 15 mm cyst in the left hepatic lobe and a 7 mm cyst in the right hepatic lobe, for which further imaging is not recommended. The contour of the liver is smooth. No hepatomegaly is noted. There is fatty infiltration of the liver. Gallbladder and bile ducts: There has been a cholecystectomy. There is no fluid collection in the gallbladder fossa. No dilation of the bile ducts is noted. No calcified stones are seen in the common bile duct. Pancreas: Unremarkable. No dilation of the main pancreatic duct is noted. There is no inflammatory fat stranding around the pancreas to suggest acute pancreatitis. Spleen: Unremarkable. No splenomegaly is noted. Adrenals: Normal. No adrenal mass is noted. Kidneys and ureters: No stones are noted in the kidneys or ureters. There is no hydronephrosis or hydroureter. The kidneys are unremarkable. No renal lesion is noted. Stomach and bowel: The intra-abdominal portion of the stomach and small bowel are unremarkable. There is liquid feces in the colon, which will lead to diarrhea. There is no evidence for a bowel obstruction, diverticulosis, diverticulitis, perforated viscus, pneumatosis intestinalis, intussusception, or volvulus. The distal ascending colon, transverse colon, descending colon, and rectosigmoid are decompressed, limiting their optimal evaluation. There is no pericolonic inflammatory fat stranding. Appendix: There are no findings to suggest acute appendicitis. Intraperitoneal space: No free air. No ascites. No asbcess. There is a surgical clip in the anterior aspect of the epigastric region that is similar in appearance compared to the prior CT abdomen and pelvis on 06/24/2019. Retroperitoneal space: No fluid collection. No mass. Vasculature: There is no abdominal aortic aneurysm or intramural hematoma. Incidental note is made of small round calcifications in the pelvis, which are compatible with phleboliths. Lymph nodes: No enlarged lymph nodes. Bladder: The distended urinary bladder is normal in appearance. No stones or masses are seen in the bladder. Reproductive: The uterus is anterverted and unremarkable. The ovaries are unremarkable. Bones/joints: There is no fracture or dislocation. No suspicious osteolytic or osteoblastic lesion. There is a mild levoscoliosis of the lumbar spine and degenerative changes in the lower lumbar spine. There are also degenerative changes of the pubic symphysis. Soft tissues: There is a tiny fat containing umbilical hernia. IMPRESSION: 1. No stones in the kidneys, ureters, or urinary bladder. No hydronephrosis or hydroureter. 2. Liquid feces in the colon, which will lead to diarrhea. 3. Fatty liver. Electronically signed by: Eladio Chan On 11/21/2019 23:58:50 PM
[2019-11-22] MEDS ORDERED: PHENAZOPYRIDINE 100 MG TAB PO ONE (00:15)
[2019-11-22] MEDS ORDERED: CIPROFLOXACIN 400 MG in IV 1 EA IV ONE (00:15)
[2019-11-22] MEDS ORDERED: KETOROLAC 30 MG/ML 1ML VIAL IV ONE (00:30)
[2019-11-22 02:41] VITALS: BP 116/55
[2019-11-22] MEDS ORDERED: PYRI1TAB5 PO (02:45)
[2019-11-22] MEDS ORDERED: CIPR-249 PO (02:45)
--- NOTE | 2019-12-09 14:27 | ECGEPIP ---
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
== END 2019-11-22 02:56 | disposition home or self-care (01) ==
LOC: M ED 20:55
DX: N39.0 Urinary tract infection, site not specified (principal); K52.9 Noninfective gastroenteritis and colitis, unspecified; K76.0 Fatty (change of) liver, not elsewhere classified; R00.0 Tachycardia, unspecified; I45.19 Other right bundle-branch block; R94.31 Abnormal electrocardiogram [ECG] [EKG]; Z79.899 Other long term (current) drug therapy; Z91.011 Allergy to milk products; Z88.0 Allergy status to penicillin; Z88.2 Allergy status to sulfonamides; Z88.6 Allergy status to analgesic agent; Z88.1 Allergy status to other antibiotic agents; Z91.018 Allergy to other foods
CPT/HCPCS: 74176; 80048; 80076; 81001; 82550; 82553; 83690; 84484; 85025; 93005; 93041; 96365; 96366; 96375; 99284; J0744; J1885

== ENCOUNTER → 2020-05-01 | Outpatient (CLI) | payer MEDICARE, BC ==
[~2020-05-01] MED LIST changes: -DICY20TA PO; +DICY20TA3 PO; +PYRI1TAB5 PO
== END ==
LOC: M LABSMTC 10:13
PROVIDERS: ATTEND Pediatrics
DX: Z20.822 Contact with and (suspected) exposure to COVID-19 (principal)
CPT/HCPCS: C9803; U0003

== ENCOUNTER 2020-06-29 18:38 | Emergency (ER) | payer MEDICARE, BC ==
[~2020-06-29] VITALS: Ht 160 cm; Wt 77.9 kg
[2020-06-29 18:38] VITALS: BP 120/80
[2020-06-29] MEDS ORDERED: PROG1CAP8 (18:52)
[2020-06-29] MEDS ORDERED: TREL1AER (18:52)
[2020-06-29] MEDS ORDERED: CYCL-707 (18:52)
[2020-06-29] MEDS ORDERED: ESTR0.1C5 (18:52)
[2020-06-29] MEDS ORDERED: ROPI0.253 (18:52)
[2020-06-29] MEDS ORDERED: DICY10CA13 (18:52)
[2020-06-29] MEDS ORDERED: ESTR1DIS2 (18:52)
[2020-06-29] MEDS ORDERED: D-50CAP (18:52)
[2020-06-29] MEDS ORDERED: ALBU8.5H (18:52)
== END 2020-06-29 19:48 | disposition home or self-care (01) ==
LOC: M ED 18:38
DX: N76.89 Other specified inflammation of vagina and vulva (principal); Z87.19 Personal history of other diseases of the digestive system; K21.9 Gastro-esophageal reflux disease without esophagitis; K50.919 Crohn's disease, unspecified, with unspecified complications; K90.0 Celiac disease; G43.909 Migraine, unspecified, not intractable, without status migrainosus; J32.9 Chronic sinusitis, unspecified; J45.909 Unspecified asthma, uncomplicated; M32.9 Systemic lupus erythematosus, unspecified; Z87.440 Personal history of urinary (tract) infections; Z79.899 Other long term (current) drug therapy; Z91.011 Allergy to milk products; Z88.0 Allergy status to penicillin; Z88.2 Allergy status to sulfonamides; Z88.5 Allergy status to narcotic agent; Z88.1 Allergy status to other antibiotic agents

== ENCOUNTER 2020-08-18 20:44 | Emergency (ER) | payer MEDICARE, BC ==
[~2020-08-18] VITALS: Ht 162.6 cm; Wt 75.4 kg
[~2020-08-18 20:44] MED LIST changes: +ALBU8.5H; +CYCL-707; +D-50CAP; +DICY10CA13; +ESTR0.1C5; +ESTR1DIS2; +PROG1CAP8; +ROPI0.253; +TREL1AER
[2020-08-18] MEDS ORDERED: MOXIFLOXACIN 400 MG TAB PO ONE (23:35)
[2020-08-18] MEDS ORDERED: BOOSTRIX/ADACEL VACCINE (DIPHTH/PERTUSS/ACELL/TETANUS) 0.5ML SYR IM ONE (23:35)
[2020-08-18] MEDS ORDERED: MOXI1TAB PO (23:45)
[2020-08-19 00:08] VITALS: BP 127/75
== END 2020-08-19 00:14 | disposition home or self-care (01) ==
LOC: M ED 20:44
DX: S60.511A Abrasion of right hand, initial encounter (principal); S50.811A Abrasion of right forearm, initial encounter; S60.512A Abrasion of left hand, initial encounter; S50.812A Abrasion of left forearm, initial encounter; S90.811A Abrasion, right foot, initial encounter; S90.812A Abrasion, left foot, initial encounter; S80.211A Abrasion, right knee, initial encounter; S80.212A Abrasion, left knee, initial encounter; S80.811A Abrasion, right lower leg, initial encounter; S80.812A Abrasion, left lower leg, initial encounter; S70.311A Abrasion, right thigh, initial encounter; S70.312A Abrasion, left thigh, initial encounter; W55.01XA Bitten by cat, initial encounter; Y92.009 Unspecified place in unspecified non-institutional (private) residence as the place of occurrence of the external cause; Y93.89 Activity, other specified; Y99.8 Other external cause status

== ENCOUNTER 2020-11-15 21:15 | Emergency (ER) | payer MEDICARE, BC ==
[~2020-11-15] VITALS: Ht 160 cm; Wt 73.1 kg
[~2020-11-15 21:15] MED LIST changes: -DOXY100C37 PO; +DOXY1CAP62 PO; +MOXI1TAB PO
[2020-11-15] MEDS ORDERED: KETOROLAC 30 MG/ML 1ML VIAL IV ONE (23:25)
[2020-11-15] MEDS ORDERED: NS 1,000 ML IV ONE (23:25)
[2020-11-16] MEDS ORDERED: METOCLOPRAMIDE INJ 10MG/2ML VIAL (J2765 PER 1) IV ONE
[2020-11-16 00:25] LABS: BASO # 0.1 10^3/uL (0.0-0.2); BASO % 0.9 % (0.0-1.0); EOS # 0.2 10^3/uL (0.0-0.5); EOS % 4.1 % (0.0-3.0); HEMATOCRIT 42.5 % (36.0-47.0); HEMOGLOBIN 14.7 g/dl (12.0-15.5); LYMPH # 2.2 10^3/uL (1.5-5.0); LYMPH % 37.5 % (24.0-44.0); MEAN CORPUSCULAR HEMOGLOBIN 31.1 pg (27.0-33.0); MEAN CORPUSCULAR HGB CONC 34.6 g/dl (32.0-36.5); MONO # 0.5 10^3/uL (0.0-0.8); NEUTROPHILS # 2.8 10^3/uL (1.5-8.5); NEUTROPHILS % 48.3 % (36.0-66.0); PLATELET COUNT, AUTOMATED 271 10^3/uL (150-450); RED BLOOD COUNT 4.72 10^6/uL (4.00-5.40); WHITE BLOOD COUNT 5.9 10^3/uL (4.0-10.0)
[2020-11-16 00:59] LABS: ALBUMIN 3.9 GM/DL (3.2-5.2); ALT/SGPT 31 U/L (12-78); BILIRUBIN,DIRECT 0.1 MG/DL (0.0-0.2); BILIRUBIN,TOTAL 0.5 MG/DL (0.2-1.0); BLOOD UREA NITROGEN 13 MG/DL (7-18); CALCIUM LEVEL 9.1 MG/DL (8.5-10.1); CARBON DIOXIDE LEVEL 28 MEQ/L (21-32); CHLORIDE LEVEL 109 MEQ/L (98-107); CK-MB VALUE MASS 3.5 NG/ML (<3.6); CPK CREATINE PHOSPHOKINASE 181 U/L (26-192); CREATININE FOR GFR 0.85 MG/DL (0.55-1.30); GLOMERULAR FILTRATION RATE > 60.0 (>51); GLUCOSE, FASTING 92 MG/DL (70-100); LIPASE 103 U/L (73-393); MB/CK RELATIVE INDEX 1.93 (< OR =4); POTASSIUM SERUM 3.7 MEQ/L (3.5-5.1); SODIUM LEVEL 141 MEQ/L (136-145); TOTAL PROTEIN 7.5 GM/DL (6.4-8.2); TROPONIN I < 0.02 NG/ML (< 0.10)
[2020-11-16] MEDS ORDERED: TRAZ-252 PO (03:23)
[2020-11-16 03:30] VITALS: BP 117/59
--- NOTE | 2020-11-16 20:11 | ECGEPIP ---
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
== END 2020-11-16 03:43 | disposition home or self-care (01) ==
LOC: M ED 21:15
DX: R53.81 Other malaise (principal); G43.909 Migraine, unspecified, not intractable, without status migrainosus; J45.909 Unspecified asthma, uncomplicated; K50.919 Crohn's disease, unspecified, with unspecified complications; K90.0 Celiac disease; Z79.899 Other long term (current) drug therapy; Z91.011 Allergy to milk products; Z88.0 Allergy status to penicillin; Z88.2 Allergy status to sulfonamides; Z88.5 Allergy status to narcotic agent; Z91.018 Allergy to other foods
CPT/HCPCS: 80048; 80076; 81001; 82550; 82553; 83690; 84484; 85025; 87798; 93005; 93041; 96361; 96374; 96375; 99285; J1885; J2765

== ENCOUNTER 2021-06-22 17:11 | Emergency (ER) | payer MEDICARE, OTHER ==
[~2021-06-22] VITALS: Ht 162.6 cm; Wt 76.3 kg
[~2021-06-22 17:11] MED LIST changes: -D31000TA2 PO; +DOXY-443 PO; -DOXY1CAP62 PO; -KLOR20TA42 PO; +POTA-141 PO; -PROC10TA4 PO; +PROC10TA5 PO; -SCOP1PAT2 TOP; +TRAN1DIS4 TOP; +TRAZ-252 PO; +VITA100093 PO
[2021-06-22 17:12] VITALS: BP 146/68
[2021-06-22] MEDS ORDERED: STEL90IN (17:49)
[2021-06-22] MEDS ORDERED: CYCL-707 (17:49)
[2021-06-22] MEDS ORDERED: ONDA4TAB6 (17:49)
[2021-06-22] MEDS ORDERED: TRAZ-186 (17:49)
[2021-06-22 22:18] LABS: BASO # 0.1 10^3/uL (0.0-0.2); BASO % 0.8 % (0.0-1.0); EOS # 0.2 10^3/uL (0.0-0.5); EOS % 2.8 % (0.0-3.0); HEMATOCRIT 41.5 % (36.0-47.0); HEMOGLOBIN 14.2 g/dl (12.0-15.5); LYMPH # 2.5 10^3/uL (1.5-5.0); LYMPH % 35.1 % (24.0-44.0); MEAN CORPUSCULAR HGB CONC 34.2 g/dl (32.0-36.5); MEAN CORPUSCULAR VOLUME 90.6 fl (80.0-96.0); MONO # 0.6 10^3/uL (0.0-0.8); MONO % 7.9 % (2.0-8.0); NEUTROPHILS # 3.8 10^3/uL (1.5-8.5); NEUTROPHILS % 53.1 % (36.0-66.0); PLATELET COUNT, AUTOMATED 266 10^3/uL (150-450); RED BLOOD COUNT 4.58 10^6/uL (4.00-5.40); WHITE BLOOD COUNT 7.2 10^3/uL (4.0-10.0)
[2021-06-22] MEDS ORDERED: DOXYCYCLINE HYCLATE 100MG TABLET PO ONE (22:50)
[2021-06-22] MEDS ORDERED: KETOROLAC 60MG 2ML VIAL IM ONE (22:50)
[2021-06-22] MEDS ORDERED: DOXY-443 PO (23:21)
== END 2021-06-22 23:38 | disposition home or self-care (01) ==
LOC: M ED 17:11
DX: K03.81 Cracked tooth (principal); K08.89 Other specified disorders of teeth and supporting structures; R09.81 Nasal congestion; K02.9 Dental caries, unspecified; K50.90 Crohn's disease, unspecified, without complications; K90.0 Celiac disease; Z86.14 Personal history of Methicillin resistant Staphylococcus aureus infection; Z79.899 Other long term (current) drug therapy; Z91.011 Allergy to milk products; Z88.0 Allergy status to penicillin; Z88.2 Allergy status to sulfonamides; Z88.5 Allergy status to narcotic agent; Z88.1 Allergy status to other antibiotic agents
CPT/HCPCS: 80047; 85025; 87798; 96372; 99282; J1885

== ENCOUNTER 2021-10-18 21:43 | Emergency (ER) | payer OTHER, MEDICARE ==
[~2021-10-18] VITALS: Ht 162.6 cm; Wt 72.7 kg
[~2021-10-18 21:43] MED LIST changes: +ONDA4TAB6; +ONDA4TAB6 PO; +STEL90IN; +TRAM50TA2 PO; +TRAZ-186
[2021-10-19 07:21] LABS: RSV AMPLIFICATION NEGATIVE (NEGATIVE)
[2021-10-19 07:23] VITALS: BP 130/69
[2021-10-19] MEDS ORDERED: BENZ200C70 PO (07:45)
[2021-10-19] MEDS ORDERED: MUCI600T31 PO (07:45)
== END 2021-10-19 07:58 | disposition home or self-care (01) ==
LOC: M ED 21:43
DX: J06.9 Acute upper respiratory infection, unspecified (principal); L73.9 Follicular disorder, unspecified; J45.909 Unspecified asthma, uncomplicated; G43.909 Migraine, unspecified, not intractable, without status migrainosus; K90.0 Celiac disease; Z79.899 Other long term (current) drug therapy; Z91.011 Allergy to milk products; Z88.0 Allergy status to penicillin; Z88.2 Allergy status to sulfonamides; Z88.5 Allergy status to narcotic agent

== ENCOUNTER → 2022-05-09 | Outpatient (CLI) | payer OTHER, MEDICARE ==
[~2022-05-09] MED LIST changes: +BENZ200C70 PO; +MUCI600T31 PO
== END ==
LOC: M WHC 10:29
PROVIDERS: ATTEND Family Medicine
DX: Z12.31 Encounter for screening mammogram for malignant neoplasm of breast (principal)

== ENCOUNTER 2022-09-27 19:30 | Emergency (ER) | payer OTHER, MEDICARE ==
[~2022-09-27] VITALS: Ht 162.6 cm; Wt 65.3 kg
[~2022-09-27 19:30] MED LIST changes: +ARTIDRO4 OU; +DICY-61; -DICY10CA13; +MONT-5 PO; -ROPI0.253; -ROPI0.5T3 PO; +ROPI0.5T33 PO; -ROPI1TAB3 PO; +ROPI1TAB73 PO; +ROPI5TAB19; -SING10TA32 PO
[2022-09-27] MEDS ORDERED: MORPHINE 4 MG/ML 1ML VIAL IV ONE (20:30)
[2022-09-27] MEDS ORDERED: NS 1,000 ML IV ONE (20:30)
[2022-09-27] MEDS ORDERED: ONDANSETRON 4MG 2ML VIAL IV ONE (20:30)
[2022-09-27 20:58] LABS: BASO # 0.1 10^3/uL (0.0-0.2); BASO % 0.7 % (0.0-1.0); EOS # 0.2 10^3/uL (0.0-0.5); EOS % 2.7 % (0.0-3.0); HEMATOCRIT 41.6 % (36.0-47.0); HEMOGLOBIN 14.5 g/dl (12.0-15.5); LYMPH # 2.7 10^3/uL (1.5-5.0); LYMPH % 33.2 % (24.0-44.0); MEAN CORPUSCULAR HGB CONC 34.9 g/dl (32.0-36.5); MEAN CORPUSCULAR VOLUME 89.1 fl (80.0-96.0); MONO # 0.7 10^3/uL (0.0-0.8); MONO % 8.1 % (2.0-8.0); NEUTROPHILS # 4.5 10^3/uL (1.5-8.5); NEUTROPHILS % 55.1 % (36.0-66.0); PLATELET COUNT, AUTOMATED 335 10^3/uL (150-450); RED BLOOD COUNT 4.67 10^6/uL (4.00-5.40); WHITE BLOOD COUNT 8.2 10^3/uL (4.0-10.0)
[2022-09-27 21:22] LABS: LIPASE 25 U/L (12-53)
[2022-09-27 21:24] LABS: ALBUMIN 4.1 G/DL (3.2-5.2); ALKALINE PHOSPHATASE 113 U/L (46-116); ALT/SGPT < 9 U/L (7.0-40); AST/SGOT 19 U/L (<34); BILIRUBIN,TOTAL 0.8 MG/DL (0.3-1.2); BLOOD UREA NITROGEN 17 MG/DL (9-23); CALCIUM LEVEL 9.6 MG/DL (8.5-10.1); CARBON DIOXIDE LEVEL 25 MMOL/L (20-31); CHLORIDE LEVEL 106 MMOL/L (98-107); CREATININE FOR GFR 0.68 MG/DL (0.55-1.30); GLOMERULAR FILTRATION RATE > 60.0 (>51); GLUCOSE, FASTING 139 MG/DL (60-100); POTASSIUM SERUM 3.8 MMOL/L (3.5-5.1); SODIUM LEVEL 141 MMOL/L (136-145); TOTAL PROTEIN 7.3 G/DL (5.7-8.2)
[2022-09-27] MEDS ORDERED: METOCLOPRAMIDE INJ 10MG/2ML VIAL IV ONE (22:35)
[2022-09-27] MEDS ORDERED: ISOVUE-370 76% 100ML VIAL As Ordered ONE (22:43)
[2022-09-27] MEDS ORDERED: methylPREDNISolone 125MG 2ML VIAL IV ONE (23:50)
[2022-09-27] MEDS ORDERED: HALOPERIDOL 5MG/ML 1ML VIAL IV ONE (23:50)
[2022-09-28 00:30] LABS: C REACTIVE PROTEIN QUANTITATIV < 0.40 MG/DL (<1.0)
[2022-09-28 01:07] LABS: AMPHETAMINES LEVEL URINE NEGATIVE (NEGATIVE); BARBITURATES URINE NEGATIVE (NEGATIVE); BENZODIAZEPINES URINE NEGATIVE (NEGATIVE); CANNABINOIDS URINE NEGATIVE (NEGATIVE); COCAINE METABOLITE URINE NEGATIVE (NEGATIVE); METHADONE URINE NEGATIVE (NEGATIVE); PHENCYCLIDINE URINE NEGATIVE (NEGATIVE)
[2022-09-28 01:08] LABS: OPIATES URINE POSITIVE (NEGATIVE)
[2022-09-28 04:31] VITALS: BP 115/57; TEMP 98.2; O2SAT 96
[2022-09-28] MEDS ORDERED: PRED20TA PO (04:38)
[2022-09-28] MEDS ORDERED: ONDA4TAB6 PO (04:38)
[2022-09-28] MEDS ORDERED: HALO1TAB19 PO (04:38)
== END 2022-09-28 04:50 | disposition home or self-care (01) ==
LOC: M ED 19:30 → EDBD 19:30 → M ED 09-28 04:50
DX: K52.9 Noninfective gastroenteritis and colitis, unspecified (principal); K90.0 Celiac disease; G43.909 Migraine, unspecified, not intractable, without status migrainosus; J45.909 Unspecified asthma, uncomplicated; F32.A Depression, unspecified; Z90.49 Acquired absence of other specified parts of digestive tract; Z88.0 Allergy status to penicillin; Z88.1 Allergy status to other antibiotic agents; Z88.2 Allergy status to sulfonamides; Z88.5 Allergy status to narcotic agent; Z91.011 Allergy to milk products; Z79.899 Other long term (current) drug therapy
CPT/HCPCS: 71045; 74177; 80053; 80307; 83605; 83690; 83880; 85025; 86140; 87486; 87581; 87633; 87798; 96361; 96374; 96375; 99285; J1630; J2405; J2765; J2930; Q9967

== ENCOUNTER → 2023-01-10 | Outpatient (REF) | payer OTHER, MEDICARE ==
[~2023-01-10] MED LIST changes: +HALO1TAB19 PO; +PRED20TA PO
== END ==
LOC: M LAB REF 16:13
PROVIDERS: ATTEND Nurse Practitioner Family
DX: R10.30 Lower abdominal pain, unspecified (principal); R19.7 Diarrhea, unspecified; R30.0 Dysuria

== ENCOUNTER 2023-04-25 21:34 | Emergency (ER) | payer OTHER, MEDICARE ==
[~2023-04-25] VITALS: Ht 162.6 cm; Wt 71.5 kg
[2023-04-25] MEDS ORDERED: NS 1,000 ML IV ONE (23:10)
[2023-04-25] MEDS ORDERED: METOCLOPRAMIDE INJ 10MG/2ML VIAL IV ONE (23:10)
[2023-04-25] MEDS ORDERED: KETOROLAC 30 MG/ML 1ML VIAL IV ONE (23:10)
[2023-04-25] MEDS ORDERED: diphenhydrAMINE 50MG/ML VIAL IV ONE (23:10)
[2023-04-26] MEDS ORDERED: METOCLOPRAMIDE INJ 10MG/2ML VIAL IV ONE (00:40)
[2023-04-26] MEDS ORDERED: diphenhydrAMINE 50MG/ML VIAL IV ONE (00:40)
[2023-04-26] MEDS ORDERED: KETOROLAC 30 MG/ML 1ML VIAL IV ONE (00:40)
[2023-04-26] MEDS ORDERED: ONDA4TAB6 PO (03:41)
[2023-04-26] MEDS ORDERED: KETO10TAB PO (03:41)
[2023-04-26 04:06] VITALS: BP 148/72; TEMP 98; O2SAT 97
== END 2023-04-26 04:08 | disposition home or self-care (01) ==
LOC: M ED 21:34
DX: S06.0X0A Concussion without loss of consciousness, initial encounter (principal); Y92.9 Unspecified place or not applicable; Y93.9 Activity, unspecified; Y99.9 Unspecified external cause status; W19.XXXA Unspecified fall, initial encounter; K50.90 Crohn's disease, unspecified, without complications; K90.0 Celiac disease; G43.909 Migraine, unspecified, not intractable, without status migrainosus; Z88.0 Allergy status to penicillin; Z88.2 Allergy status to sulfonamides; Z88.1 Allergy status to other antibiotic agents; Z91.011 Allergy to milk products; Z79.899 Other long term (current) drug therapy
CPT/HCPCS: 70450; 96361; 96374; 96375; 99284; J1200; J1885; J2765

== ENCOUNTER 2023-10-19 16:16 | Emergency (ER) | payer OTHER, MEDICARE ==
[~2023-10-19] VITALS: Ht 162.6 cm; Wt 71.0 kg
[~2023-10-19 16:16] MED LIST changes: +DOXY-323 PO; -DOXY-443 PO; +KETO10TAB PO; +ONDA-282; +ONDA-282 PO; -ONDA4TAB6; -ONDA4TAB6 PO; -PROC25SU24 PR; +PROC25SU27 PR
[2023-10-19] MEDS ORDERED: CYCL-707 PO (19:56)
[2023-10-19] MEDS: traMADol 50 MG TAB PO ONE (20:22)
[2023-10-19 20:25] VITALS: BP 133/78; TEMP 98.9; O2SAT 97
== END 2023-10-19 20:28 | disposition home or self-care (01) ==
LOC: M ED 16:16
DX: S43.401A Unspecified sprain of right shoulder joint, initial encounter (principal); W19.XXXA Unspecified fall, initial encounter; Y92.9 Unspecified place or not applicable; Y93.9 Activity, unspecified; Y99.9 Unspecified external cause status; Z79.899 Other long term (current) drug therapy; Z88.0 Allergy status to penicillin; Z88.2 Allergy status to sulfonamides; Z88.5 Allergy status to narcotic agent; Z88.1 Allergy status to other antibiotic agents; Z91.011 Allergy to milk products; Z91.018 Allergy to other foods

== ENCOUNTER 2024-01-12 11:08 | Emergency (ER) | payer OTHER, MEDICARE ==
[~2024-01-12] VITALS: Ht 160 cm; Wt 66.6 kg
[~2024-01-12 11:08] MED LIST changes: -DOXY-323 PO; +DOXY-441 PO
[2024-01-12 13:11] LABS: BASO # 0.1 10^3/uL (0.0-0.2); BASO % 1.5 % (0.0-1.0); EOS # 0.2 10^3/uL (0.0-0.5); HEMATOCRIT 39.9 % (36.0-47.0); HEMOGLOBIN 13.9 g/dl (12.0-15.5); LYMPH % 38.6 % (24.0-44.0); MEAN CORPUSCULAR HEMOGLOBIN 30.3 pg (27.0-33.0); MEAN CORPUSCULAR HGB CONC 34.8 g/dl (32.0-36.5); MEAN CORPUSCULAR VOLUME 87.1 fl (80.0-96.0); MONO # 0.5 10^3/uL (0.0-0.8); MONO % 10.3 % (2.0-8.0); NEUTROPHILS # 2.4 10^3/uL (1.5-8.5); NEUTROPHILS % 46.4 % (36.0-66.0); PLATELET COUNT, AUTOMATED 325 10^3/uL (150-450); RED BLOOD COUNT 4.58 10^6/uL (4.00-5.40); WHITE BLOOD COUNT 5.3 10^3/uL (4.0-10.0)
[2024-01-12] MEDS ORDERED: OMEP40CA5 (13:25)
[2024-01-12 13:39] LABS: CK-MB VALUE MASS < 1.0 NG/ML (<3.6)
[2024-01-12] MEDS ORDERED: ISOVUE-370 76% 100ML VIAL As Ordered ONE (13:39)
[2024-01-12 13:41] LABS: ALBUMIN 3.9 G/DL (3.2-5.2); ALKALINE PHOSPHATASE 93 U/L (46-116); ALT/SGPT 25 U/L (7.0-40); AST/SGOT 14 U/L (<34); BILIRUBIN,DIRECT 0.1 MG/DL (<0.4); BILIRUBIN,TOTAL 0.4 MG/DL (0.3-1.2); BLOOD UREA NITROGEN 15 MG/DL (9-23); CALCIUM LEVEL 10.3 MG/DL (8.5-10.1); CARBON DIOXIDE LEVEL 27 MMOL/L (20-31); CHLORIDE LEVEL 109 MMOL/L (98-107); GLOMERULAR FILTRATION RATE > 60.0 (>51); GLUCOSE, FASTING 94 MG/DL (60-100); PHOSPHORUS LEVEL 3.5 MG/DL (2.5-4.9); POTASSIUM SERUM 3.9 MMOL/L (3.5-5.1); SODIUM LEVEL 139 MMOL/L (136-145); TOTAL PROTEIN 7.5 G/DL (5.7-8.2)
[2024-01-12] MEDS: NS 500 ML IV ONE (13:53)
[2024-01-12] MEDS: ONDANSETRON 4MG 2ML VIAL IV ONE ×2 (14:22→17:19)
[2024-01-12 14:25] LABS: CPK CREATINE PHOSPHOKINASE 70 U/L (34-145); MB/CK RELATIVE INDEX 1.42 (< OR =4)
[2024-01-12 14:34] LABS: CK-MB VALUE MASS < 1.0 NG/ML (<3.6)
[2024-01-12 14:36] LABS: CPK CREATINE PHOSPHOKINASE 54 U/L (34-145); MB/CK RELATIVE INDEX 1.85 (< OR =4)
[2024-01-12] MEDS: ACETAMINOPHEN 325 MG TAB PO ONE (17:19)
[2024-01-12] MEDS ORDERED: ONDA-282 PO (18:21)
[2024-01-12 18:31] VITALS: BP 102/56; TEMP 98.8; O2SAT 99
== END 2024-01-12 18:36 | disposition home or self-care (01) ==
LOC: M ED 11:08
DX: R07.9 Chest pain, unspecified (principal); R11.0 Nausea; R42 Dizziness and giddiness; K50.90 Crohn's disease, unspecified, without complications; G43.909 Migraine, unspecified, not intractable, without status migrainosus; K90.0 Celiac disease; Z79.899 Other long term (current) drug therapy; Z91.011 Allergy to milk products; Z88.0 Allergy status to penicillin; Z88.2 Allergy status to sulfonamides; Z88.5 Allergy status to narcotic agent; Z88.1 Allergy status to other antibiotic agents; Z91.018 Allergy to other foods
CPT/HCPCS: 70450; 70544; 70551; 71046; 71275; 80047; 80048; 80076; 82550; 82553; 83735; 83880; 84100; 84443; 84484; 85025; 87040; 93005; 93041; 94760; 96361; 96374; 96376; 99285; J2405; Q9967

== ENCOUNTER → 2024-05-20 | Outpatient (CLI) | payer OTHER, MEDICARE ==
[~2024-05-20] MED LIST changes: +OMEP40CA5
[2024-05-20 17:56] LABS: BASO # 0.1 10^3/uL (0.0-0.2); BASO % 0.8 % (0.0-1.0); EOS # 0.3 10^3/uL (0.0-0.5); EOS % 2.8 % (0.0-3.0); HEMATOCRIT 39.4 % (36.0-47.0); HEMOGLOBIN 13.3 g/dl (12.0-15.5); LYMPH # 2.4 10^3/uL (1.5-5.0); LYMPH % 27.6 % (24.0-44.0); MEAN CORPUSCULAR HEMOGLOBIN 30.1 pg (27.0-33.0); MEAN CORPUSCULAR HGB CONC 33.8 g/dl (32.0-36.5); MEAN CORPUSCULAR VOLUME 89.1 fl (80.0-96.0); MONO # 0.8 10^3/uL (0.0-0.8); MONO % 8.8 % (2.0-8.0); NEUTROPHILS # 5.3 10^3/uL (1.5-8.5); NEUTROPHILS % 59.8 % (36.0-66.0); PLATELET COUNT, AUTOMATED 268 10^3/uL (150-450); RED BLOOD COUNT 4.42 10^6/uL (4.00-5.40); WHITE BLOOD COUNT 8.9 10^3/uL (4.0-10.0)
[2024-05-20 18:23] LABS: ALBUMIN 3.7 G/DL (3.2-5.2); ALKALINE PHOSPHATASE 93 U/L (35-104); ALT/SGPT 19 U/L (7.0-40); AST/SGOT 14 U/L (<34); BILIRUBIN,TOTAL 0.5 MG/DL (0.3-1.2); BLOOD UREA NITROGEN 13 MG/DL (9-23); CALCIUM LEVEL 9.3 MG/DL (8.5-10.1); CARBON DIOXIDE LEVEL 28 MMOL/L (20-31); CHLORIDE LEVEL 107 MMOL/L (98-107); CHOLESTEROL LEVEL 163 MG/DL (<200); CHOLESTEROL RISK RATIO 2.75 (<5); CREATININE FOR GFR 0.76 MG/DL (0.55-1.30); GLOMERULAR FILTRATION RATE > 60.0 (>51); GLUCOSE, FASTING 92 MG/DL (60-100); HDL CHOLESTEROL 59.1 MG/DL (>40); LDL CHOLESTEROL 88.3 MG/DL (<100); NON-HDL-C 103.9 MG/DL; POTASSIUM SERUM 4.1 MMOL/L (3.5-5.1); SODIUM LEVEL 144 MMOL/L (136-145); TOTAL PROTEIN 7.3 G/DL (5.7-8.2); TRIGLYCERIDES LEVEL 78 MG/DL (<150)
[2024-05-20 18:25] LABS: VITAMIN B12 LEVEL 435 PG/ML (211-911)
[2024-05-20 18:26] LABS: TOTAL 25(OH) VITAMIN D 13.4 NG/ML (20.0-100.0)
== END ==
LOC: M LAB 17:05
PROVIDERS: ATTEND Family Medicine
DX: K50.918 Crohn's disease, unspecified, with other complication (principal); E78.00 Pure hypercholesterolemia, unspecified; G25.81 Restless legs syndrome; E55.9 Vitamin D deficiency, unspecified

== ENCOUNTER → 2024-06-09 | Outpatient (CLI) | payer OTHER, MEDICARE | LOC: M PLAIMG 10:09 | PROVIDERS: ATTEND Family Medicine | DX: M25.511 Pain in right shoulder (principal); M25.411 Effusion, right shoulder; M75.121 Complete rotator cuff tear or rupture of right shoulder, not specified as traumatic ==

== ENCOUNTER 2024-07-15 21:05 | Emergency (ER) | payer OTHER, MEDICARE ==
[~2024-07-15] VITALS: Ht 162.6 cm; Wt 64.6 kg
[~2024-07-15 21:05] MED LIST changes: -SUCR1ORA2 PO; +SUCR1ORA20 PO
[2024-07-15] MEDS ORDERED: CLIN150C17 (21:18)
[2024-07-15 23:21] VITALS: BP 121/69; TEMP 97.8; O2SAT 100
[2024-07-16] MEDS ORDERED: HYDR-3713 PO (00:36)
[2024-07-16] MEDS: NORCO 5/325MG TABLET (HOME DOSE PACK) PO ONE (00:48)
[2024-07-16 01:13] LABS: BASO # 0.1 10^3/uL (0.0-0.2); EOS # 0.2 10^3/uL (0.0-0.5); EOS % 3.6 % (0.0-3.0); HEMATOCRIT 36.9 % (36.0-47.0); HEMOGLOBIN 12.4 g/dl (12.0-15.5); LYMPH # 2.5 10^3/uL (1.5-5.0); LYMPH % 43.7 % (24.0-44.0); MEAN CORPUSCULAR HEMOGLOBIN 29.7 pg (27.0-33.0); MEAN CORPUSCULAR HGB CONC 33.6 g/dl (32.0-36.5); MEAN CORPUSCULAR VOLUME 88.5 fl (80.0-96.0); MONO # 0.4 10^3/uL (0.0-0.8); MONO % 6.2 % (2.0-8.0); NEUTROPHILS # 2.6 10^3/uL (1.5-8.5); NEUTROPHILS % 45.3 % (36.0-66.0); PLATELET COUNT, AUTOMATED 354 10^3/uL (150-450); RED BLOOD COUNT 4.17 10^6/uL (4.00-5.40); WHITE BLOOD COUNT 5.8 10^3/uL (4.0-10.0)
== END 2024-07-16 01:10 | disposition home or self-care (01) ==
LOC: M ED 21:05
DX: T85.848A Pain due to other internal prosthetic devices, implants and grafts, initial encounter (principal); Z79.899 Other long term (current) drug therapy; Z88.0 Allergy status to penicillin; Z88.2 Allergy status to sulfonamides; Z88.5 Allergy status to narcotic agent; Z88.1 Allergy status to other antibiotic agents; Z91.011 Allergy to milk products; Z91.018 Allergy to other foods

== ENCOUNTER 2024-09-30 17:52 | Emergency (ER) | payer OTHER, MEDICARE ==
[~2024-09-30] VITALS: Ht 160 cm; Wt 62.3 kg
[~2024-09-30 17:52] MED LIST changes: +CLIN150C17
[2024-09-30] MEDS ORDERED: HYDR-3363 (18:13)
[2024-09-30] MEDS ORDERED: MIRT-10 (18:13)
[2024-09-30] MEDS ORDERED: TRAN1DIS4 (18:13)
[2024-09-30] MEDS ORDERED: CLON0.5T2 (18:13)
[2024-09-30 19:29] LABS: BASO # 0.1 10^3/uL (0.0-0.2); BASO % 1.0 % (0.0-1.0); EOS # 0.2 10^3/uL (0.0-0.5); EOS % 4.2 % (0.0-3.0); LYMPH # 2.2 10^3/uL (1.5-5.0); LYMPH % 38.8 % (24.0-44.0); MONO # 0.5 10^3/uL (0.0-0.8); MONO % 8.9 % (2.0-8.0); NEUTROPHILS # 2.7 10^3/uL (1.5-8.5); NEUTROPHILS % 46.9 % (36.0-66.0); PLATELET COUNT, AUTOMATED 292 10^3/uL (150-450)
[2024-09-30 19:44] LABS: INR 0.82
[2024-09-30] MEDS: NS (Normal Saline) 0.9% 1,000 ML IV ONE (19:52)
[2024-09-30] MEDS: PROCHLORPERAZINE 10MG/2ML VIAL IV STA (19:52)
[2024-09-30 19:55] LABS: ALT/SGPT 27 U/L (7.0-40); AST/SGOT 22 U/L (<34); CALCIUM LEVEL 9.6 MG/DL (8.5-10.1); CARBON DIOXIDE LEVEL 27 MMOL/L (20-31); CHLORIDE LEVEL 106 MMOL/L (98-107); CREATININE FOR GFR 0.74 MG/DL (0.55-1.30); GLOMERULAR FILTRATION RATE > 90.0 (>51); POTASSIUM SERUM 4.0 MMOL/L (3.5-5.1); SODIUM LEVEL 142 MMOL/L (136-145)
[2024-09-30] MEDS ORDERED: ISOVUE-370 76% 100 ML VIAL As Ordered ONE (20:26)
[2024-09-30 21:56] VITALS: BP 140/65; TEMP 97.2; O2SAT 97
== END 2024-09-30 22:06 | disposition home or self-care (01) ==
LOC: M ED 17:52
DX: K52.9 Noninfective gastroenteritis and colitis, unspecified (principal); K21.9 Gastro-esophageal reflux disease without esophagitis; G43.909 Migraine, unspecified, not intractable, without status migrainosus; F32.A Depression, unspecified; K50.919 Crohn's disease, unspecified, with unspecified complications; Z79.899 Other long term (current) drug therapy; Z88.0 Allergy status to penicillin; Z88.2 Allergy status to sulfonamides; Z88.5 Allergy status to narcotic agent; Z91.011 Allergy to milk products; Z91.018 Allergy to other foods
CPT/HCPCS: 74174; 80048; 80076; 83690; 85025; 85610; 85730; 86850; 86900; 86901; 96374; 99284; J0780; Q9967

== ENCOUNTER → 2024-12-31 | Outpatient (CLI) | payer MEDICARE, OTHER ==
[~2024-12-31] MED LIST changes: +CLON0.5T2; +HYDR-3363; +MIRT-10; +TRAN1DIS4
== END ==
LOC: M RAD 11:42
PROVIDERS: ATTEND Family Medicine
DX: H35.60 Retinal hemorrhage, unspecified eye (principal); I65.23 Occlusion and stenosis of bilateral carotid arteries

== ENCOUNTER → 2025-03-03 | Outpatient (CLI) | payer MEDICARE, OTHER | LOC: M WHC 11:08 | PROVIDERS: ATTEND Family Medicine | DX: N94.10 Unspecified dyspareunia (principal); M85.88 Other specified disorders of bone density and structure, other site; Z12.31 Encounter for screening mammogram for malignant neoplasm of breast; Z13.820 Encounter for screening for osteoporosis; R92.323 Mammographic fibroglandular density, bilateral breasts ==